=== PATIENT | male | born 1930 | race Caucasian/White ===

== ENCOUNTER 2019-01-08 18:55 | Inpatient (IN) | payer MEDICARE, OTHER ==
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
--- NOTE | 2019-01-08 20:13 | XR ---
EXAMINATION: XR chest 1V portable DATE AND TIME: 01/08/2019 7:47 PM CLINICAL INDICATION: PHH; haylee TECHNIQUE: AP upright portable COMPARISON: None FINDINGS: RPO rotated radiograph. Sternal sutures and mediastinal clips are noted. Moderately enlarged cardiac silhouette. Bilateral pleural effusions, moderate on the right and minimal on the left. There is interstitial and alveolar space process bilaterally, greater on the right. This has the appearance of interstitial an d alveolar phase pulmonary edema, presumably cardiogenic etiology. This diagnosis requires clinical e xclusion of pneumonia. There is no pneumothorax. The right clavicle is partially foreshortened on this RPO view. There appears to be a remodeled remot e mid clavicular fracture. However, clinical exclusion of acute injury is necessary due to the foresh ortening on this RPO image. IMPRESSION: 1. Suspect advanced pulmonary edema. 2. Right mid clavicular findings, likely remote.
[2019-01-08 20:15] LABS: Basophils % (A) 0 %; Eosinophils # (A) 0.2 k/uL (0-0.7); Eosinophils % (A) 1 %; HCT 35.3 % (39.0-53.0); HGB 11.5 gm/dL (13.0-17.5); Lymphocytes # (A) 0.8 k/uL (1.0-4.8); Lymphocytes % (A) 4 %; MCH 33.9 pg (25.0-35.0); MCHC 32.7 g/dL (31.0-37.0); MCV 103.8 fL (80.0-100.0); Macrocytosis Slight; Mean Platelet Volume 8.9; Monocytes # (A) 0.9 k/uL (0-1.0); Monocytes % (A) 5 %; Neutrophils # (A) 15.8 k/uL (1.3-7.7); Neutrophils % (A) 89 %; Platelet Count 255 k/uL (150-450); WBC 17.8 k/uL (3.8-10.6)
[2019-01-08] MEDS ORDERED: FUROSEMIDE 10 MG/ML 4 ML VIAL IV STA (20:17)
[2019-01-08 20:26] LABS: Partial Thromboplastin Time 22.1 sec (22.0-30.0); Prothrombin Time 10.3 sec (9.0-12.0)
[2019-01-08 20:33] LABS: Albumin 3.6 g/dL (3.5-5.0); Total Bilirubin 0.4 mg/dL (0.2-1.3); Total Protein 6.3 g/dL (6.3-8.2)
[2019-01-08] MEDS ORDERED: cefTRIAXone IN SWFI 1,000 MG/10 ML SYRINGE IVP STA (20:33)
[2019-01-08] MEDS ORDERED: ASPIRIN 325 MG TAB PO STA (21:03)
[2019-01-08] MEDS ORDERED: HEPARIN SODIUM,PORCINE 5,000 UNIT/ML 1 ML VIAL IV ONE (21:25)
[2019-01-08] MEDS ORDERED: HEPARIN SODIUM,PORCINE 5,000 UNIT/ML 1 ML VIAL IV PRN (21:25)
[2019-01-08] MEDS ORDERED: ACETAMINOPHEN TAB 325 MG TAB PO PRN (21:25)
[2019-01-08] MEDS ORDERED: NALOXONE 0.4 MG/ML 1 ML VIAL IV PRN (21:25)
[2019-01-08] MEDS: HEPARIN SOD,PORK IN 0.45% NACL 25,000 UNIT in 0.45% NACL 1 250ML.BAG IV SCH (21:49)
[2019-01-08] MEDS: hydrALAZINE HCL 25 MG TAB PO SCH (21:54)
[2019-01-09] MEDS: FUROSEMIDE 10 MG/ML 4 ML VIAL IV SCH ×3 (00:14→17:17)
[2019-01-09 04:25] LABS: Basophils % (A) 0 %; Eosinophils # (A) 0.1 k/uL (0-0.7); Eosinophils % (A) 1 %; HCT 35.3 % (39.0-53.0); HGB 11.6 gm/dL (13.0-17.5); Lymphocytes % (A) 7 %; MCH 33.7 pg (25.0-35.0); MCHC 32.9 g/dL (31.0-37.0); MCV 102.3 fL (80.0-100.0); Macrocytosis Slight; Mean Platelet Volume 9.1; Monocytes % (A) 7 %; Neutrophils # (A) 11.5 k/uL (1.3-7.7); Neutrophils % (A) 84 %; Platelet Count 238 k/uL (150-450); RBC 3.44 m/uL (4.30-5.90); RDW 13.6 % (11.5-15.5); WBC 13.7 k/uL (3.8-10.6)
[2019-01-09] MEDS: hydrALAZINE HCL 25 MG TAB PO SCH ×2 (05:20→13:10)
[2019-01-09] MEDS: CARVEDILOL 6.25 MG TAB PO SCH ×2 (06:54→17:17)
[2019-01-09 07:00] LABS: Glucose,Whole Blood 131 mg/dL (75-99)
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
[2019-01-09] MEDS: ATORVASTATIN 40 MG TAB PO SCH ×2 (09:47→14:55)
[2019-01-09] MEDS: amLODIPine 10 MG TAB PO SCH (09:47)
[2019-01-09] MEDS: ISOSORBIDE MONONITRATE ER 30 MG TAB.ER.24H PO SCH (09:47)
[2019-01-09] MEDS ORDERED: ERGOCALCIFEROL 50,000 UNIT CAP PO SCH (10:15)
[2019-01-09 11:35] LABS: Glucose,Whole Blood 127 mg/dL (75-99)
[2019-01-09] MEDS: LISINOPRIL 20 MG TAB PO SCH (12:19)
[2019-01-09] MEDS: LACTOBACILLUS ACIDOPH & BULGAR 1 EACH PACKET PO SCH (12:20)
[2019-01-09] MEDS: CLOPIDOGREL 75 MG TAB PO SCH (12:20)
[2019-01-09] MEDS: VENLAFAXINE HCL ER 150 MG CAP PO SCH (12:20)
[2019-01-09] MEDS: HYOSCYAMINE SULFATE 0.375 MG TAB.ER.12H PO SCH (12:20)
--- NOTE | 2019-01-09 12:35 | ECHOF ---
Referral Reason:haylee MEASUREMENTS -------- HEIGHT: 177.8 cm WEIGHT: 91.2 kg BP: 151/87 RVIDd: 3.9 cm (< 3.3) IVSd: 1.4 cm (0.6 - 1.1) LVIDd: 4.8 cm (3.9 - 5.3) LVPWd: 1.9 cm (0.6 - 1.1) IVSs: 2.0 cm LVIDs: 3.5 cm LVPWs: 1.9 cm LAESV Index (A-L): 45.08 ml/m Ao Diam: 4.1 cm (2.0 - 3.7) AV Cusp: 1.2 cm (1.5 - 2.6) LA Diam: 5.6 cm (2.7 - 3.8) MV EXCURSION: 20.043 mm (> 18.000) MV EF SLOPE: 67 mm/s (70 - 150) EPSS: 0.7 cm MV E Carlos: 1.28 m/s MV DecT: 121 ms MV A Carlos: 0.50 m/s MV E/A Ratio: 2.57 AV maxP.38 mmHg AV meanP.86 mmHg RAP: 5.00 mmHg RVSP: 21.01 mmHg FINDINGS -------- Sinus rhythm. This was a technically good study. The left ventricular size is normal. There is moderate concentric left ventricular hypertrophy. O verall left ventricular systolic function is mildly impaired with, an EF between 45 - 50 %. Anterse ptal Hypokinesis The right ventricle is mild to moderately enlarged. The left atrium is markedly dilated. LA is severely dilated >40 ml/m2 The right atrium is normal in size. Interatrial and interventricular septum intact. Peak/mean gradient across the Aortic Valve is 5.38mmHg / 2.86mmHg. Normally functioning bioprosthet ic valve. Severe mitral regurgitation is present. Mild tricuspid regurgitation present. Right ventricular systolic pressure is normal at < 35 mmHg. The pulmonic valve is normal. The aortic root size is normal. Normal inferior vena cava with normal inspiratory collapse consistent with estimated right atrial pre ssure of 5 mmHg. Echo free space represents a pericardial fat pad. CONCLUSIONS -------- 1. Sinus rhythm. 2. This was a technically good study. 3. The left ventricular size is normal. 4. There is moderate concentric left ventricular hypertrophy. 5. Overall left ventricular systolic function is mildly impaired with, an EF between 45 - 50 %. 6. Anterseptal Hypokinesis 7. The right ventricle is mild to moderately enlarged. 8. The left atrium is markedly dilated. 9. LA is severely dilated >40 ml/m2 10. The right atrium is normal in size. 11. Interatrial and interventricular septum intact. 12. Peak/mean gradient across the Aortic Valve is 5.38mmHg / 2.86mmHg. 13. Normally functioning bioprosthetic valve. 14. Severe mitral regurgitation is present. 15. Mild tricuspid regurgitation present. 16. Right ventricular systolic pressure is normal at < 35 mmHg. 17. The pulmonic valve is normal. 18. The aortic root size is normal. 19. Normal inferior vena cava with normal inspiratory collapse consistent with estimated right atrial pressure of 5 mmHg. 20. Echo free space represents a pericardial fat pad. DIRECTOR OF TRAUMA: Catalina Hansen RDCS
[2019-01-09] MEDS: INSULIN ASPART (NovoLOG) 100 UNIT/ML VIAL SQ SCH ×2 (14:46→17:18)
[2019-01-09] MEDS ORDERED: ALPRAZolam 0.5 MG TAB PO PRN (14:48)
[2019-01-09] MEDS ORDERED: ALPRAZolam 0.25 MG TAB PO PRN (14:48)
[2019-01-09] MEDS ORDERED: NITROGLYCERIN SL TABS 0.4 MG TAB SUBLINGUAL PRN (14:48)
[2019-01-09] MEDS: HEPARIN SOD,PORK IN 0.45% NACL 25,000 UNIT in 0.45% NACL 1 250ML.BAG IV SCH (15:41)
[2019-01-09 16:22] LABS: Glucose,Whole Blood 165 mg/dL (75-99)
--- NOTE | 2019-01-09 16:25 | HP ---
HISTORY AND PHYSICAL DATE OF ADMISSION: January 08, 2019 DATE OF SERVICE: January 09, 2019. PRESENTING COMPLAINT: Short of breath. HISTORY OF PRESENTING COMPLAINT: A very pleasant, 88 -year-old patient of Dr. Minda Lujan. Chronic stable medical conditions include diabetes, hypertension, chronic kidney disease. Follows with Dr. Kumar. Aortic valve with a pig valve, and chronic obstructive pulmonary disease. The patient has been chronically short of breath, now recently getting far more short of breath with even minimal activity that came on even yesterday. Slight chest pressure. Slight cough, occasional congestion. No fever. No chills. No edema, decided to present to the ER. The patient ruled in for an acute NV. Cardiology is planning to do a cardiac catheterization. Family is present. REVIEW OF SYSTEMS: CONSTITUTIONAL: Tired. HEENT: Decreased hearing. RESPIRATORY as above. CARDIOVASCULAR as above. GASTROINTESTINAL: None. GENITOURINARY: None. MUSCULOSKELETAL: None. DERMATOLOGIC, HEMATOLOGIC, LYMPHATIC: none. PSYCHIATRY: None. NEUROLOGICAL: None. PAST MEDICAL HISTORY: Diabetes mellitus type 2, hypertension, chronic kidney disease, being followed by Dr. 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 PAST SURGICAL HISTORY: Cardiac valve replacement with pig valve, coronary bypass. PSYCH HISTORY: Anxiety, depression. SOCIAL HISTORY: The patient smoked for about 25 years stopped in 1976. Lives by himself. Used to work in a power plant, bore mill operator for plastic, was exposed to different kinds of dust/smoke. FAMILY HISTORY: Reviewed, not pertinent to presentation. HOME MEDICATIONS: Medrol Dosepak, Zithromax, hydralazine 25 mg q.8h, Klonopin 0.25 mg b.i.d., Norvasc 10 mg p.o. daily Effexor XR 150 mg p.o. daily. Lisinopril 40 mg p.o. daily. Probiotic 1 capsule p.o. daily. Insulin lispro 20 units subcu a.c. supper, 80 units subcu a.c. b.i.d., Lantus 44 units subcu q.h.s., Levbid 0.375 mg p.o. b.i.d., Vitamin D2 47030 units every 14 days. Vitamin B12, 500 mcg p.o. q.h.s., Plavix 75 mg p.o. daily, Coreg 6.25 p.o. b.i.d., calcitriol 0.5 mcg p.o. Monday, Monday and Lipitor 40 mg p.o. daily. Aspirin 81 mg p.o. q.h.s., allopurinol 10 mg q.h.s. ALLERGIES: TO SULFUR AND BACTRIM. PHYSICAL EXAMINATION: VITAL SIGNS: Vital signs on presentation, temperature 98, pulse 95, respirations 26, blood pressure 164/99, pulse ox 93 percent on 2 L. GENERAL APPEARANCE: BMI 29 sitting at the edge of bed, tired-appearing. EYES: Pupils are equal. Conjunctivae normal. HEENT: External appearance of nose and ears normal. Oral cavity normal. Decreased hearing. NECK: JVD unable to assess. Mass not palpable. RESPIRATORY: Effort increased. LUNGS: Diminished breath sounds. Prolonged expiration. CARDIOVASCULAR: 1st and 2nd sounds normal. No edema. ABDOMEN: Soft, nontender. Liver and spleen not palpable. LYMPHATIC: No lymph nodes palpable in the neck and axilla. PSYCHIATRY: Alert and oriented times three. Mood and affect normal. NEUROLOGICAL: Pupils equal. Cranial nerves grossly intact. Power and sensation grossly intact. INVESTIGATIONS: White count 17.5, hemoglobin 11.5, platelets 255. Potassium 5.0, BUN 38, creatinine 2.28. Troponin 3.2, 6.6 and 9.7. ProBNP 17,800. EKG tracing personally reviewed by me shows some ST-segment depression in lateral leads. Chest x-ray film, personally reviewed by me shows cardiomegaly and pulmonary edema. ASSESSMENT: 1. Acute non-ST elevation myocardial infarction. 2. Acute congestive heart failure from underlying coronary artery disease. 3. Diabetes mellitus type 2, chronically on insulin. 4. Essential hypertension. 5. 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 6. Chronic obstructive pulmonary disease in an ex-smoker. 7. Anxiety and depression, not otherwise specified. 8. Essential hypertension. 9. Acute congestive heart failure from underlying coronary artery disease. PLAN: Home medications are resumed. The patient is on IV heparin. Cardiology was consulted. Accu-Cheks will be followed. The patient also on IV Lasix. Copy to Dr. Minda Lujan. MMODL / IJN: [id number] /
--- NOTE | 2019-01-09 19:19 | CONS ---
CONSULTATION REASON FOR CONSULT: Renal failure. HISTORY OF PRESENT ILLNESS: Patient is an 88-year-old male with history of chronic kidney disease and NKF stage III, with baseline creatinine about 1.9 mg/dL. He was admitted to the hospital secondary to shortness of breath. The patient was actually seen at our office yesterday. He appeared to be significantly short of breath and was therefore advised to go to the emergency room. His troponin came back positive at 3.2, and it is up to 9.7 today. Chest x-ray showed evidence of pulmonary vascular congestion, pulmonary edema. The patient is maintained on IV Lasix. He states he is feeling slightly better. Serum creatinine was 2.28 yesterday. We do not have labs today. Blood pressure has been about 150-130 mmHg systolic. The patient has not had any fever. The this morning when patient is seen, he is having an echocardiogram. He denies any chest pain. He states he is feeling slightly better in terms of his shortness of breath. 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 However, patient was noticed to have increase in proteinuria recently as outpatient. This will be further worked up. He does have coronary artery disease, history of TIA and the patient has valvular heart disease status post aortic valve replacement. He also has type 2 diabetes, hypertension, hyperlipidemia. PAST SURGICAL HISTORY: Aortic valve replacement, coronary artery bypass surgery. SOCIAL HISTORY: Negative for smoking. Patient is a former smoker. No history of drug abuse or alcohol abuse. MEDICATIONS: Medications at home included Zyloprim, aspirin, Lipitor, Zithromax, Coreg, calcitriol, Plavix, vitamin D2, insulin, lisinopril, Effexor, Norvasc, Klonopin, hydralazine. ALLERGIES: INCLUDE SULFA, BACTRIM. REVIEW OF SYSTEMS: As per HPI. Other systems negative. PHYSICAL EXAMINATION: Patient is currently comfortable. He is on BiPAP. He is not in any acute distress. Blood pressure was this morning 130/60, heart rate of 68 per minute. He is afebrile. Examination of the heart S1, S2. Examination of lungs bilateral breath sounds are heard. ABDOMEN: Soft. There is a bilateral crackles heard at the bases. Abdomen is soft, obese. Examination of lower extremities shows edema 1+ bilaterally. REHAB PHYSICIAN exam is grossly intact. LABS: Show from yesterday, sodium 139, potassium 5.0, BUN 38, serum creatinine 2.28. Troponin is up to 9.7 today. UA is not available. ASSESSMENT: 1. Chronic kidney disease and NKF stage IIIB to IV, with baseline creatinine about 1.9- 2 mg/dL secondary to diabetic nephropathy and nephrosclerosis. The patient was recently noticed to have an increase in proteinuria. We will repeat his serologies as an outpatient. 2. Acute non ST elevation myocardial infarction, being followed by Cardiology, maintained on IV heparin. 3. Congestive heart failure, maintained on IV Lasix which we will continue, systolic acute on chronic. 4. Cardiomyopathy, ejection fraction of about 45-50 percent. Left atrium is severely dilated. Moderate concentric LVH is noted. 5. Status post bioprosthetic aortic valve replacement. PLAN: Continue with IV Lasix. Repeat labs in a.m. Check urinalysis. Continue with PURA inhibitors and avoid nephrotoxic agents. Avoid hypotension. Thank you for this consultation. We will continue to follow the patient with you during his hospitalization. MMMIGUEL ANGELL / [place]IR[place]IAN: [id number] /
[2019-01-09 21:29] LABS: Glucose,Whole Blood 93 mg/dL (75-99)
[2019-01-10] MEDS: ASPIRIN 81 MG PO SCH ×2 (06:38→21:01)
[2019-01-10] MEDS: CYANOCOBALAMIN 500 MCG TAB PO SCH ×2 (06:38→21:01)
[2019-01-10] MEDS: ALLOPURINOL 300 MG TAB PO SCH ×2 (06:38→21:01)
[2019-01-10] MEDS: HYOSCYAMINE SULFATE 0.375 MG TAB.ER.12H PO SCH ×3 (06:40→21:01)
[2019-01-10] MEDS: hydrALAZINE HCL 25 MG TAB PO SCH ×4 (06:40→21:01)
[2019-01-10] MEDS: INSULIN DETEMIR (LEVEMIR) 100 UNIT/ML SYR SQ SCH ×2 (06:40→21:17)
[2019-01-10] MEDS: FUROSEMIDE 10 MG/ML 4 ML VIAL IV SCH ×4 (06:41→23:17)
[2019-01-10 06:43] LABS: Glucose,Whole Blood 92 mg/dL (75-99)
[2019-01-10] MEDS: CARVEDILOL 6.25 MG TAB PO SCH ×2 (06:46→17:17)
[2019-01-10 07:05] LABS: Basophils % (A) 0 %; Eosinophils # (A) 0.6 k/uL (0-0.7); Eosinophils % (A) 7 %; HCT 32.8 % (39.0-53.0); HGB 10.7 gm/dL (13.0-17.5); Lymphocytes # (A) 1.2 k/uL (1.0-4.8); Lymphocytes % (A) 13 %; MCH 33.8 pg (25.0-35.0); MCHC 32.8 g/dL (31.0-37.0); MCV 102.9 fL (80.0-100.0); Macrocytosis Slight; Mean Platelet Volume 9.1; Monocytes # (A) 0.7 k/uL (0-1.0); Monocytes % (A) 8 %; Neutrophils # (A) 6.3 k/uL (1.3-7.7); Neutrophils % (A) 69 %; Platelet Count 223 k/uL (150-450); RBC 3.18 m/uL (4.30-5.90); RDW 13.2 % (11.5-15.5); WBC 9.1 k/uL (3.8-10.6)
[2019-01-10] MEDS: ATORVASTATIN 40 MG TAB PO SCH (09:02)
[2019-01-10] MEDS: INSULIN ASPART (NovoLOG) 100 UNIT/ML VIAL SQ SCH ×3 (09:02→17:17)
[2019-01-10] MEDS: amLODIPine 10 MG TAB PO SCH (09:02)
[2019-01-10] MEDS: CLOPIDOGREL 75 MG TAB PO SCH (09:02)
[2019-01-10] MEDS: LISINOPRIL 20 MG TAB PO SCH (09:03)
[2019-01-10] MEDS: VENLAFAXINE HCL ER 150 MG CAP PO SCH (09:03)
[2019-01-10] MEDS: ISOSORBIDE MONONITRATE ER 30 MG TAB.ER.24H PO SCH (09:03)
[2019-01-10] MEDS: LACTOBACILLUS ACIDOPH & BULGAR 1 EACH PACKET PO SCH (09:03)
[2019-01-10 09:42] LABS: Calcium 8.2 mg/dL (8.4-10.2); Potassium 4.1 mmol/L (3.5-5.1)
[2019-01-10 12:16] LABS: Glucose,Whole Blood 73 mg/dL (75-99)
--- NOTE | 2019-01-10 13:39 | P.PN ---
Subjective Progress Note Date: 01/10/19 This is a pleasant 88-year-old gentleman with history of diabetes, hypertension, hyperlipidemia, renal disease, prior TIA, history of aortic valve replacement, who follows with Dr. García in the office. Of recent, the patient has been experiencing symptoms of progressively worsening shortness of breath with exertion. He presented to the hospital on this occasion with symptoms of difficulty in breathing. According to the patient he could not catch his breath at all. He denies any chest pressure or palpitations. Chest x-ray shows advanced pulmonary edema. His EKG on arrival here showed a normal sinus rhythm with nonspecific ST-T wave changes. Blood pressure on arrival here 164/99, h eart rate in the 90s, 93% on 2 L of oxygen. Blood pressure this morning 150/80 with a heart rate in the 70s, 96% on 40% BiPAP. White blood cell count on admission 17.8, 13.7 this morning, hemoglobin 11.5 on admission, 11.6 this morning, platelet count 238. Sodium 139, potassium 5.0, BUN 38 and creatinine 2.2. BNP level 17,800. Troponin 3.2 and 6.6.At the time of my examination this morning, patient is lying somewhat reclined in bed, does state that his breathing is significantly improved although not back to his normal. He states that just prior to admission here, he was having something to drink, and he inhaled feeling like it went into his lungs, he had a severe coughing spell which seemed to make his shortness of breath significantly worse. The patient had been seen recently by Dr. García in the office and was advised as an outpatient to undergo cardiac catheterization on this coming Monday. 01/10/2019 Patient seen and examined this morning, sitting up in the chair bedside. He diuresed well yesterday and through the night and feels considerably better today. Patient diuresed approximately 3200 mL of urine through the night, although his weight isn't reflective of good diuresis. His white blood cell count is normal, hemoglobin 10.7, platelet count 223. Sodium 140, potassium 4.1, BUN 48 and creatinine 2.21. I appreciate nephrology's consultation, it appears that patient's creatinine does sit around 1.9. Objective - Vital Signs Vital signs: Vital Signs Temp 98.0 F 01/10/19 07:41 Pulse 73 05/09/19 12:00 Resp 18 01/10/19 12:00 BP 144/67 01/10/19 11:32 Pulse Ox 96 01/10/19 11:32 Intake & Output 01/09/19 01/10/19 01/10/19 18:59 06:59 18:59 Intake Total 1102.769 180 Output Total 1200 1974 Balance -97.231 -1974 180 Weight 91.6 kg 94 kg Intake: Intake, IV Titration 142.769 Amount Heparin Sod,Pork in 0.45% 142.769 NaCl 25,000 unit In 0.45 % NaCl 1 250ml.bag @ 10 UNITS/KG/HR 9.979 mls/hr IV .Q24H COUNT INCLUDES THE [facility] Rx#: [id number] Oral 960 180 Output: Urine 1199 1974 Other: Voiding Method Urinal Urinal Urinal Diaper Diaper Diaper Incontinent Incontinent Incontinent # Voids 2 2 0 # Bowel Movements 1 1 0 - Exam PHYSICAL EXAMINATION: GENERAL: 88-year-old gentleman in no acute distress at the time of my examination HEENT: Head is atraumatic, normocephalic. Pupils equal, round. Sclera anicteric. Conjunctiva are clear. Mucous membranes of the mouth are moist. Neck is supple. There is elevated jugular venous pressure. No carotid bruit is heard. HEART EXAMINATION: S1 and S2 1 systolic murmur is heard CHEST EXAMINATION: Lungs are clear with mild diminished air entry to the bases. ABDOMEN: Soft, nontender. Bowel sounds are heard. No organomegaly noted. EXTREMITIES: 2+ peripheral pulses with no evidence of peripheral edema and no calf tenderness noted. NEUROLOGIC patient is awake, alert and oriented 3. - Labs CBC & Chem 7: 01/10/19 06:31 01/10/19 06:31 Labs: Abnormal Lab Results - Last 24 Hours (Table) 01/09/19 01/10/19 01/10/19 Range/Units 16:21 06:31 06:31 RBC 3.18 L (4.30-5.90) m/uL Hgb 10.7 L (13.0-17.5) gm/dL Hct 32.8 L (39.0-53.0) % MCV 102.9 H (80.0-100.0) fL BUN 48 H (9-20) mg/dL Creatinine 2.21 H (0.66-1.25) mg/dL POC Glucose (mg/dL) 165 H (75-99) mg/dL Calcium 8.2 L (8.4-10.2) mg/dL 01/10/19 Range/Units 12:01 RBC (4.30-5.90) m/uL Hgb (13.0-17.5) gm/dL Hct (39.0-53.0) % MCV (80.0-100.0) fL BUN (9-20) mg/dL Creatinine (0.66-1.25) mg/dL POC Glucose (mg/dL) 73 L (75-99) mg/dL Calcium (8.4-10.2) mg/dL Assessment and Plan Plan: Assessment and plan #1 congestive heart failure, LV function unknown #2 non-ST elevation OR #3 history of aortic valve replacement #4 hypertension #5 diabetes #6 hyperlipidemia #7 acute on chronic renal disease Plan Patient had an echocardiogram with Doppler study performed which revealed an ejection fraction of 45-50%. Anterior septal hypokinesia. Normally functioning bioprosthetic aortic valve. Severe mitral regurgitation. We will recommend to continue the patient on current dose of IV Lasix. Continue to monitor intake and output along with daily weights and daily lytes BUN and creatinine. Patient is scheduled morning undergo cardiac catheterization by Dr. Capps. Risks and benefits were explained to the patient in detail and he is willing to proceed. DNP note has been reviewed, I agree with a documented findings and plan of care. Patient was seen and examined.
[2019-01-10] MEDS: HEPARIN SOD,PORK IN 0.45% NACL 25,000 UNIT in 0.45% NACL 1 250ML.BAG IV SCH (15:43)
[2019-01-10 16:56] LABS: Glucose,Whole Blood 179 mg/dL (75-99)
--- NOTE | 2019-01-10 17:00 | PN ---
PROGRESS NOTE Patient is seen for followup for chronic kidney disease. He was admitted to the hospital with CHF exacerbation and acute myocardial infarction. Currently patient is maintained on IV heparin. He is feeling better. Volume status has improved. He is maintained on IV push Lasix. Currently he has no further chest pains. Patient is possibly going for cardiac catheterization. His renal function is at baseline. On examination this morning, blood pressure is 153/67, heart rate of 73 per minute. He is afebrile. EXAMINATION OF THE HEART: S1 and S2. EXAMINATION OF LUNGS: Bilateral breath sounds are heard. ABDOMEN: Soft, non-tender. Examination of lower extremities shows edema 1+ bilaterally. AFFILIATE MARKETING COORDINATOR exam is grossly intact. Labs show hemoglobin 10.7, sodium 140, potassium 4.1, BUN 48, serum creatinine 2.21. ASSESSMENT: 1. Chronic kidney disease, NKF stage IV. Renal function at baseline. Etiology is nephrosclerosis. 2. Acute nyt-RW-msmluwnas myocardial infarction, maintained on heparin. Planning cardiac cath. 3. Congestive heart failure, acute on top of chronic, systolic. 4. Cardiomyopathy, ejection fraction 45% to 50%, with severely dilated left atrium and moderate concentric left ventricular hypertrophy. 5. Status post bioprosthetic aortic valve replacement. PLAN: Continue IV Lasix. We can proceed with cardiac cath as planned. However, I would like to hold the Zestril for a day or on the day of procedure, and we can resume over the next couple of days. We also need to avoid hypotension. Currently patient is on 40 mg of lisinopril. I will decrease it to 10 mg per day. MMODL / IJN: [id number] /
[2019-01-10 20:20] LABS: Glucose,Whole Blood 71 mg/dL (75-99)
[2019-01-11] MEDS: INSULIN ASPART (NovoLOG) 100 UNIT/ML VIAL SQ SCH ×3 (05:00→18:08)
[2019-01-11] MEDS: LACTOBACILLUS ACIDOPH & BULGAR 1 EACH PACKET PO SCH (05:00)
[2019-01-11 05:35] LABS: Basophils % (A) 0 %; Eosinophils # (A) 0.7 k/uL (0-0.7); Eosinophils % (A) 8 %; HCT 35.4 % (39.0-53.0); HGB 11.2 gm/dL (13.0-17.5); Lymphocytes # (A) 1.1 k/uL (1.0-4.8); Lymphocytes % (A) 12 %; MCH 32.6 pg (25.0-35.0); MCHC 31.6 g/dL (31.0-37.0); MCV 103.2 fL (80.0-100.0); Macrocytosis Slight; Monocytes # (A) 0.7 k/uL (0-1.0); Monocytes % (A) 8 %; Neutrophils # (A) 6.7 k/uL (1.3-7.7); Neutrophils % (A) 70 %; Platelet Count 249 k/uL (150-450); RBC 3.43 m/uL (4.30-5.90); RDW 13.6 % (11.5-15.5); WBC 9.5 k/uL (3.8-10.6)
[2019-01-11 05:47] LABS: Potassium 4.2 mmol/L (3.5-5.1)
[2019-01-11] MEDS ORDERED: ASPIRIN 325 MG TAB PO ONE (06:00)
[2019-01-11] MEDS ORDERED: ATORVASTATIN 80 MG TAB PO ONE (06:00)
[2019-01-11 06:17] LABS: Glucose,Whole Blood 148 mg/dL (75-99)
--- NOTE | 2019-01-11 06:49 | PN ---
PROGRESS NOTE DATE OF SERVICE: 01/10/2019 PRESENTING COMPLAINT: Short of breath. INTERVAL HISTORY: Patient with chronic kidney disease, presented with acute non ST elevation myocardial infarction and acute CHF exacerbation. Breathing has been stable. Patient for cardiac catheterization. Tolerating a diet. No chest pain. Family at the bedside. REVIEW OF SYSTEMS: Done for constitutional, cardiovascular, GI, pulmonary; relevant findings as above. CURRENT MEDICATIONS: Current medications are reviewed that include IV heparin. PHYSICAL EXAMINATION: On examination, temperature 98.1, pulse 77, respiration 20, blood pressure 133/63, pulse ox 98% . GENERAL APPEARANCE: Sitting up, awake. EYES: Pupils equal. Conjunctivae normal. NECK: JVD not raised. Mass not palpable. RESPIRATORY: Effort increased. LUNGS: Decreased breath sounds, prolonged expiration. CARDIOVASCULAR: First and second sounds normal. No edema. ABDOMEN: Soft, nontender. Liver and spleen not palpable. PSYCHIATRY: Alert and oriented x3. Mood and affect normal. INVESTIGATIONS: White count 9.1, hemoglobin 10.7. Potassium 4.1. BUN 48, creatinine 2.21. ASSESSMENT: 1. Acute umy-EP-gkhszctdn myocardial infarction. 2. Acute congestive heart failure from both systolic and diastolic dysfunction, ejection fraction 45% to 50%. 3. Severe mitral regurgitation, nonrheumatic. 4. Diabetes mellitus type 2, chronically on insulin. 5. Essential hypertension. 6. 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 7. Chronic obstructive pulmonary disease in an ex-smoker. 8. Anxiety and depression, not otherwise specified. 9. Essential hypertension. 10.IV heparin monitoring. PLAN: Continue current medication and treatment plan. Patient will be going in for a cardiac cath as planned. Patient also remains on IV Lasix earlier. Follow electrolytes closely. MMODL / IJN: [id number] /
[2019-01-11] MEDS: hydrALAZINE HCL 25 MG TAB PO SCH ×3 (07:02→20:53)
[2019-01-11] MEDS ORDERED: HEPARIN SODIUM,PORCINE 5,000 UNIT/ML 1 ML VIAL IV PRN (07:35)
[2019-01-11] MEDS: CLOPIDOGREL 75 MG TAB PO SCH (08:16)
[2019-01-11] MEDS: CARVEDILOL 6.25 MG TAB PO SCH ×2 (08:16→18:06)
[2019-01-11] MEDS: HYOSCYAMINE SULFATE 0.375 MG TAB.ER.12H PO SCH ×2 (08:16→20:53)
[2019-01-11] MEDS: ISOSORBIDE MONONITRATE ER 30 MG TAB.ER.24H PO SCH (08:16)
[2019-01-11] MEDS: VENLAFAXINE HCL ER 150 MG CAP PO SCH (08:16)
[2019-01-11] MEDS: amLODIPine 10 MG TAB PO SCH (08:17)
[2019-01-11] MEDS: HEPARIN SOD,PORK IN 0.45% NACL 25,000 UNIT in 0.45% NACL 1 250ML.BAG IV SCH (08:17)
[2019-01-11] MEDS ORDERED: LISINOPRIL 10 MG TAB PO SCH (09:00)
[2019-01-11] MEDS ORDERED: SODIUM CHLORIDE 0.9% 1,000 ML in EMPTY BAG 1 BAG IV ONE (09:00)
[2019-01-11 11:40] LABS: Glucose,Whole Blood 172 mg/dL (75-99)
[2019-01-11] MEDS: clonazePAM 0.5 MG TAB PO PRN (12:34)
[2019-01-11] MEDS: FUROSEMIDE 10 MG/ML 4 ML VIAL IV SCH ×2 (13:34→20:54)
--- NOTE | 2019-01-11 14:08 | XR ---
EXAMINATION TYPE: XR chest 1V DATE OF EXAM: 01/11/2019 HISTORY: Shortness of breath. COMPARISON: 01/08/2019 TECHNIQUE: Single view of the chest is submitted. FINDINGS: Demonstrated are scattered senescent parenchymal change. Persistent but improving patchy basilar infiltrates. Continued follow-up advised. The heart is stable. Hilar and mediastinal structures are within normal limits. Degenerative changes are seen of the dorsal spine. IMPRESSION: 1. Overall improvement in the appearance of the chest.
--- NOTE | 2019-01-11 14:08 | PN ---
PROGRESS NOTE Patient is seen for followup for chronic kidney disease and acute kidney injury. The cardiac cath was canceled this morning as serum creatinine was further elevated. Currently, patient is lying in bed. He is comfortable. He is not in any acute distress. Overall, he states he is feeling better. The patient was started on IV fluids overnight as there were initial plans for cardiac catheterization. PHYSICAL EXAMINATION: On examination today, blood pressure was 160/90, heart rate 68 per minute. He is afebrile. EXAMINATION OF THE HEART: S1, S2. EXAMINATION OF THE LUNGS: Bilateral breath sounds are heard. Decreased breath sounds at the bases. Abdomen is soft, nontender, obese. Examination of the lower extremities shows no evidence of edema. SKID WORKER exam is grossly intact. Patient is moving all 4 extremities. LABS: Labs show sodium 137, potassium 4.2, BUN 51, serum creatinine 2.57, hemoglobin 11.2 g/dL. ASSESSMENT: 1. Acute kidney injury, mostly cardiorenal. Currently, serum creatinine is slightly higher than baseline. Cardiac cath is on hold. I will hold off on the PURA inhibitors and will repeat a chest x-ray this morning and decide on the dose of the diuretics. The patient did not get his morning dose of IV Lasix. IV fluids will be discontinued as the patient is not having the cardiac catheterization today. 2. Congestive heart failure, acute on top of chronic, systolic. 3. Cardiomyopathy, ejection fraction 45% to 50% with severely dilated left atrium. 4. Status post acute myocardial infarction, maintained on IV heparin. PLAN: Repeat chest x-ray today. Discontinue IV fluids. I will decide on the dose of the diuretics based on his x-ray findings. Volume status has improved since admission. Hold off on the PURA inhibitors for now. MMODL / IJN: [id number] /
--- NOTE | 2019-01-11 14:11 | P.PN ---
Subjective Progress Note Date: 01/11/19 Principal diagnosis: Acute non-ST elevation [place] This is a pleasant 88-year-old gentleman with a past medical history significant for aortic valve replacement, diabetes, hypertension, dyslipidemia, was admitted to the hospital with a worsening dyspnea and he was diagnosed with acute non-ST patient myocardial infarction as well as congestive heart failure secondary to systolic dysfunction. The echocardiogram revealed an ejection fraction between 45-50% with evidence of severe mitral regurgitation. On follow-up with the patient today, January [id number], he is feeling better in terms of shortness of breath. The plan was to proceed with heart catheterization earlier today but because his creatinine is worse with decided to hold on the cath at this point. He was seen by hand shaker who stopped the lisinopril. We'll continue monitor the kidney function and electrolytes and proceed with heart catheterization in the next 24-48 hours. Objective - Vital Signs Vital signs: Vital Signs Temp 99.2 F 01/11/19 08:00 Pulse 75 01/11/19 08:00 Resp 18 01/11/19 08:00 BP 160/90 01/11/19 08:00 Pulse Ox 97 01/11/19 08:00 Intake & Output 01/10/19 01/11/19 01/11/19 18:59 06:59 18:59 Intake Total 610 222 Output Total 300 1400 400 Balance 310 -1400 -178 Weight 93.8 kg Intake: Intake, IV Titration 250 Amount Heparin Sod,Pork in 0.45% 250 NaCl 25,000 unit In 0.45 % NaCl 1 250ml.bag @ 10 UNITS/KG/HR 9.979 mls/hr IV .Q24H [facility] Rx#: [id number] Oral 360 222 Output: Urine 300 1400 400 Other: Voiding Method Urinal Urinal Urinal Diaper Diaper Diaper Incontinent Incontinent Incontinent # Voids 1 1 # Bowel Movements 0 0 - Constitutional General appearance: Present: no acute distress - Respiratory Respiratory: bilateral: diminished - Cardiovascular Rhythm: regular Heart sounds: normal: S1, S2 Abnormal Heart Sounds: Present: systolic murmur - Labs CBC & Chem 7: 01/11/19 05:20 01/11/19 05:20 Labs: Abnormal Lab Results - Last 24 Hours (Table) 01/10/19 01/10/19 01/11/19 Range/Units 16:46 20:18 05:20 RBC 3.43 L (4.30-5.90) m/uL Hgb 11.2 L (13.0-17.5) gm/dL Hct 35.4 L (39.0-53.0) % MCV 103.2 H (80.0-100.0) fL APTT (22.0-30.0) sec BUN (9-20) mg/dL Creatinine (0.66-1.25) mg/dL Glucose (74-99) mg/dL POC Glucose (mg/dL) 179 H 71 L (75-99) mg/dL Calcium (8.4-10.2) mg/dL 01/11/19 01/11/19 01/11/19 Range/Units 05:20 06:16 11:31 RBC (4.30-5.90) m/uL Hgb (13.0-17.5) gm/dL Hct (39.0-53.0) % MCV (80.0-100.0) fL APTT (22.0-30.0) sec BUN 51 H (9-20) mg/dL Creatinine 2.57 H (0.66-1.25) mg/dL Glucose 135 H (74-99) mg/dL POC Glucose (mg/dL) 148 H 172 H (75-99) mg/dL Calcium 8.0 L (8.4-10.2) mg/dL 01/11/19 Range/Units 13:30 RBC (4.30-5.90) m/uL Hgb (13.0-17.5) gm/dL Hct (39.0-53.0) % MCV (80.0-100.0) fL APTT 32.3 H (22.0-30.0) sec BUN (9-20) mg/dL Creatinine (0.66-1.25) mg/dL Glucose (74-99) mg/dL POC Glucose (mg/dL) (75-99) mg/dL Calcium (8.4-10.2) mg/dL Assessment and Plan Assessment: Assessment #1 acute non-ST patient myocardial infarction #2 congestive heart failure exacerbation secondary to systolic dysfunction #3 ischemic cardiomyopathy with EF around 45% #4 status post aVR #5 multiple comorbid conditions including diabetes, hypertension, dyslipidemia Plan #1 continue monitor the kidney function and electrolytes #2 continue the Lasix IV #3 the lisinopril was stopped #4 follow-up with the patient
[2019-01-11 16:41] LABS: Glucose,Whole Blood 92 mg/dL (75-99)
[2019-01-11] MEDS: ASPIRIN 81 MG PO SCH (20:53)
[2019-01-11] MEDS: CYANOCOBALAMIN 500 MCG TAB PO SCH (20:53)
[2019-01-11] MEDS: ALLOPURINOL 300 MG TAB PO SCH (20:53)
[2019-01-11] MEDS: INSULIN DETEMIR (LEVEMIR) 100 UNIT/ML SYR SQ SCH (20:54)
[2019-01-11 21:04] LABS: Glucose,Whole Blood 164 mg/dL (75-99)
--- NOTE | 2019-01-11 22:29 | PN ---
PROGRESS NOTE DATE OF SERVICE: 01/11/2019 PRESENTING COMPLAINT: Short of breath. INTERVAL HISTORY: Patient with chronic kidney disease presented with acute ppl-[id number] myocardial infarction and acute CHF exacerbation. Patient was due to go for cardiac catheterization, but because of renal function this was deferred. Breathing is stable. No chest pain. Multiple family members at the bedside. Otherwise, patient is tolerating his diet well. REVIEW OF SYSTEMS: Done for constitutional, cardiovascular, GI, pulmonary; relevant findings as above. CURRENT MEDICATIONS: Reviewed. They include IV heparin. PHYSICAL EXAMINATION: Temperature 98.1, pulse 70, respiration 18, blood pressure 112/59, pulse ox 98% on room air. GENERAL APPEARANCE: Lying in bed. Comfortable. EYES: Pupils equal. Conjunctivae normal. NECK: JVD not raised. Mass not palpable. RESPIRATORY: Effort increased. LUNGS: Decreased breath sounds. CARDIOVASCULAR: First and second sounds normal. No edema. ABDOMEN: Soft, non-tender. Liver and spleen not palpable. PSYCHIATRY: Alert and oriented x3. Mood and affect normal. INVESTIGATIONS: White count 9.5, hemoglobin 11.2, potassium 4.2, BUN 51, creatinine 2.57. ASSESSMENT: 1. Acute jrg-PH-[id number] myocardial infarction, present on admission. 2. Acute congestive heart failure exacerbation from both systolic and diastolic dysfunction, ejection fraction 45% to 50%, now clinically improved. 3. Severe mitral regurgitation, non-rheumatic. 4. 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 5. Essential hypertension. 6. 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 7. Chronic obstructive pulmonary disease in an ex-smoker. 8. Anxiety, depression not otherwise specified. 9. Essential hypertension. 10.IV heparin monitoring. PLAN: Continue current medication and treatment plan. Did talk to the family in case a decision is made not for a cardiac catheterization. The outcomes between cardiac cath and medical management beyond 48 hours of acute VT are somewhat similar. Of course, this will be further determined by the home and school visitor. Will also keep a close eye on patient's renal function, which has slightly gotten worse since getting the IV Lasix. MMODL / IJN: [id number] /
[2019-01-12] MEDS: HEPARIN SOD,PORK IN 0.45% NACL 25,000 UNIT in 0.45% NACL 1 250ML.BAG IV SCH
[2019-01-12] MEDS: CARVEDILOL 6.25 MG TAB PO SCH ×2 (06:03→17:42)
[2019-01-12] MEDS: hydrALAZINE HCL 25 MG TAB PO SCH ×3 (06:03→20:36)
[2019-01-12 06:17] LABS: Glucose,Whole Blood 71 mg/dL (75-99)
[2019-01-12 06:49] LABS: Basophils % (A) 0 %; Eosinophils # (A) 0.7 k/uL (0-0.7); Eosinophils % (A) 8 %; HCT 33.6 % (39.0-53.0); HGB 10.6 gm/dL (13.0-17.5); Lymphocytes # (A) 0.9 k/uL (1.0-4.8); Lymphocytes % (A) 10 %; MCH 32.7 pg (25.0-35.0); MCHC 31.6 g/dL (31.0-37.0); MCV 103.4 fL (80.0-100.0); Macrocytosis Slight; Mean Platelet Volume 9.1; Monocytes # (A) 0.6 k/uL (0-1.0); Monocytes % (A) 7 %; Neutrophils # (A) 6.4 k/uL (1.3-7.7); Neutrophils % (A) 73 %; Platelet Count 229 k/uL (150-450); RBC 3.25 m/uL (4.30-5.90); RDW 13.6 % (11.5-15.5); WBC 8.9 k/uL (3.8-10.6)
[2019-01-12 07:13] LABS: Prothrombin Time 10.9 sec (9.0-12.0)
[2019-01-12 07:26] LABS: Partial Thromboplastin Time 114.1 sec (22.0-30.0)
[2019-01-12 09:20] LABS: Albumin 3.2 g/dL (3.5-5.0); Calcium 8.2 mg/dL (8.4-10.2); Magnesium 2.2 mg/dL (1.6-2.3); Potassium 4.2 mmol/L (3.5-5.1); Total Bilirubin 0.4 mg/dL (0.2-1.3); Total Protein 5.8 g/dL (6.3-8.2)
[2019-01-12] MEDS: amLODIPine 10 MG TAB PO SCH (09:50)
[2019-01-12] MEDS: clonazePAM 0.5 MG TAB PO PRN ×2 (09:50→20:37)
[2019-01-12] MEDS: LACTOBACILLUS ACIDOPH & BULGAR 1 EACH PACKET PO SCH (09:50)
[2019-01-12] MEDS: ATORVASTATIN 40 MG TAB PO SCH (09:50)
[2019-01-12] MEDS: HYOSCYAMINE SULFATE 0.375 MG TAB.ER.12H PO SCH ×2 (09:50→20:37)
[2019-01-12] MEDS: CLOPIDOGREL 75 MG TAB PO SCH (09:50)
[2019-01-12] MEDS: ISOSORBIDE MONONITRATE ER 30 MG TAB.ER.24H PO SCH (09:50)
[2019-01-12] MEDS: VENLAFAXINE HCL ER 150 MG CAP PO SCH (09:51)
[2019-01-12 10:39] LABS: Calcium 8.4 mg/dL (8.4-10.2); Potassium 4.4 mmol/L (3.5-5.1)
[2019-01-12 11:18] LABS: Glucose,Whole Blood 148 mg/dL (75-99)
[2019-01-12] MEDS: CALCITRIOL 0.25 MCG CAP PO SCH (12:12)
[2019-01-12] MEDS: FUROSEMIDE 10 MG/ML 4 ML VIAL IV SCH ×2 (12:12→20:36)
[2019-01-12] MEDS: INSULIN ASPART (NovoLOG) 100 UNIT/ML VIAL SQ SCH ×3 (12:12→17:42)
--- NOTE | 2019-01-12 12:48 | P.PN ---
Subjective Progress Note Date: 01/12/19 This is a pleasant 88-year-old gentleman with history of diabetes, hypertension, hyperlipidemia, renal disease, prior TIA, history of aortic valve replacement, who follows with Dr. García in the office. Of recent, the patient has been experiencing symptoms of progressively worsening shortness of breath with exertion. He presented to the hospital on this occasion with symptoms of difficulty in breathing. According to the patient he could not catch his breath at all. He denies any chest pressure or palpitations. Chest x-ray shows advanced pulmonary edema. His EKG on arrival here showed a normal sinus rhythm with nonspecific ST-T wave changes. Blood pressure on arrival here 164/99, h eart rate in the 90s, 93% on 2 L of oxygen. Blood pressure this morning 150/80 with a heart rate in the 70s, 96% on 40% BiPAP. White blood cell count on admission 17.8, 13.7 this morning, hemoglobin 11.5 on admission, 11.6 this morning, platelet count 238. Sodium 139, potassium 5.0, BUN 38 and creatinine 2.2. BNP level 17,800. Troponin 3.2 and 6.6.At the time of my examination this morning, patient is lying somewhat reclined in bed, does state that his breathing is significantly improved although not back to his normal. He states that just prior to admission here, he was having something to drink, and he inhaled feeling like it went into his lungs, he had a severe coughing spell which seemed to make his shortness of breath significantly worse. The patient had been seen recently by Dr. García in the office and was advised as an outpatient to undergo cardiac catheterization on this coming Monday. 01/10/2019 Patient seen and examined this morning, sitting up in the chair bedside. He diuresed well yesterday and through the night and feels considerably better today. Patient diuresed approximately 3200 mL of urine through the night, although his weight isn't reflective of good diuresis. His white blood cell count is normal, hemoglobin 10.7, platelet count 223. Sodium 140, potassium 4.1, BUN 48 and creatinine 2.21. I appreciate nephrology's consultation, it appears that patient's creatinine does sit around 1.9. 01/12/2009 A shunt was seen and examined this morning, he feels well, breathing is stable, denies any chest discomfort. His creatinine today is 2.7, for this reason a cardiac catheterization will again be deferred for another 24-48 hours. At pressure 134/90 with a heart rate in the 70s, 93% on 6 L of oxygen. Repeat chest x-ray performed yesterday showed overall improvement in the appearance of the chest. The patient does continue to be on IV Lasix, we will leave the determination of diuretic dosing up to nephrology as well as IV fluids. Objective - Vital Signs Vital signs: Vital Signs Temp 97.7 F 01/12/19 12:00 Pulse 88 01/12/19 12:00 Resp 18 01/12/19 12:00 BP 134/92 01/12/19 12:00 Pulse Ox 93 L 01/12/19 12:00 Intake & Output 01/11/19 01/12/19 01/12/19 18:59 06:59 18:59 Intake Total 582.113 91.176 Output Total 400 800 Balance 182.113 -708.824 Weight 94 kg Intake: Intake, IV Titration 120.113 91.176 Amount Heparin Sod,Pork in 0.45% 120.113 91.176 NaCl 25,000 unit In 0.45 % NaCl 1 250ml.bag @ 10. 67 UNITS/KG/HR 10.008 mls /hr IV .Q24H [facility] Rx#: [id number] Oral 462 Output: Urine 400 800 Other: Voiding Method Urinal Urinal Urinal Diaper Diaper Diaper Incontinent Incontinent Incontinent - Exam PHYSICAL EXAMINATION: GENERAL: 88-year-old gentleman in no acute distress at the time of my examination HEENT: Head is atraumatic, normocephalic. Pupils equal, round. Sclera anicteric. Conjunctiva are clear. Mucous membranes of the mouth are moist. Neck is supple. There is elevated jugular venous pressure. No carotid bruit is heard. HEART EXAMINATION: S1 and S2 1 systolic murmur is heard CHEST EXAMINATION: Lungs are clear with mild diminished air entry to the bases. ABDOMEN: Soft, nontender. Bowel sounds are heard. No organomegaly noted. EXTREMITIES: 2+ peripheral pulses with no evidence of peripheral edema and no calf tenderness noted. NEUROLOGIC patient is awake, alert and oriented 3. - Labs CBC & Chem 7: 01/12/19 06:28 01/12/19 10:02 Labs: Abnormal Lab Results - Last 24 Hours (Table) 01/11/19 01/11/19 01/11/19 Range/Units 13:30 20:52 23:09 RBC (4.30-5.90) m/uL Hgb (13.0-17.5) gm/dL Hct (39.0-53.0) % MCV (80.0-100.0) fL Lymphocytes # (1.0-4.8) k/uL APTT 32.3 H 46.7 H (22.0-30.0) sec BUN (9-20) mg/dL Creatinine (0.66-1.25) mg/dL Glucose (74-99) mg/dL POC Glucose (mg/dL) 164 H (75-99) mg/dL Calcium (8.4-10.2) mg/dL Total Protein (6.3-8.2) g/dL Albumin (3.5-5.0) g/dL 01/12/19 01/12/19 01/12/19 Range/Units 06:16 06:28 06:28 RBC 3.25 L (4.30-5.90) m/uL Hgb 10.6 L (13.0-17.5) gm/dL Hct 33.6 L (39.0-53.0) % MCV 103.4 H (80.0-100.0) fL Lymphocytes # 0.9 L (1.0-4.8) k/uL APTT 114.1 H* (22.0-30.0) sec BUN (9-20) mg/dL Creatinine (0.66-1.25) mg/dL Glucose (74-99) mg/dL POC Glucose (mg/dL) 71 L (75-99) mg/dL Calcium (8.4-10.2) mg/dL Total Protein (6.3-8.2) g/dL Albumin (3.5-5.0) g/dL 01/12/19 01/12/19 01/12/19 Range/Units 06:28 10:02 11:17 RBC (4.30-5.90) m/uL Hgb (13.0-17.5) gm/dL Hct (39.0-53.0) % MCV (80.0-100.0) fL Lymphocytes # (1.0-4.8) k/uL APTT (22.0-30.0) sec BUN 57 H 57 H (9-20) mg/dL Creatinine 2.78 H 2.68 H (0.66-1.25) mg/dL Glucose 61 L (74-99) mg/dL POC Glucose (mg/dL) 148 H (75-99) mg/dL Calcium 8.2 L (8.4-10.2) mg/dL Total Protein 5.8 L (6.3-8.2) g/dL Albumin 3.2 L (3.5-5.0) g/dL Assessment and Plan Plan: Assessment and plan #1 congestive heart failure, LV function unknown #2 non-ST elevation [place] #3 history of aortic valve replacement #4 hypertension #5 diabetes #6 hyperlipidemia #7 acute on chronic renal disease Plan Continue with current dose of IV Lasix, check lytes BUN and creatinine in the morning, patient will need to undergo cardiac catheterization once cleared by nephrology. DNP note has been reviewed, I agree with a documented findings and plan of care. Patient was seen and examined.
--- NOTE | 2019-01-12 15:49 | PN ---
PROGRESS NOTE Patient is seen for followup for acute kidney injury on top of chronic kidney disease. Patient's PURA inhibitors were held. His Lasix is also on hold. He states he is doing fairly well. Patient denies any significant chest pains or shortness of breath. He was admitted with CHF and acute myocardial infarction. The patient's cardiac catheterization was held yesterday secondary to elevated creatinine. Baseline creatinine is about 1.9 to 2 mg/dL, it did go up to 2.7 yesterday. PHYSICAL EXAMINATION: On examination today, blood pressure this morning was 142/62, heart rate 76 per minute. He is afebrile. EXAMINATION OF THE HEART: S1, S2. EXAMINATION OF THE LUNGS: Bilateral breath sounds are heard. Decreased breath sounds at bases. No crackles or wheezing is heard. Abdomen is soft, obese, nontender. Examination of the lower extremities shows no significant edema. LAB: Labs show sodium 141, potassium 4.4, BUN 57, serum creatinine 2.68, hemoglobin 10.6 g/dL. ASSESSMENT: 1. Acute kidney injury on top of chronic kidney disease, mostly cardiorenal. The PURA inhibitors are currently on hold as blood pressure was on the lower side. The patient has been diuresed. Lasix is currently on hold. Repeat chest x-ray is stable. Continue off of IV fluids. 2. Congestive heart failure, acute on top of chronic, mainly systolic. 3. Cardiomyopathy, ejection fraction 45% to 50% percent with severely dilated left atrium. 4. Status post acute myocardial infarction, maintained on IV heparin. 5. Chronic kidney disease, NKF stage 3B to 4, secondary to nephrosclerosis. Baseline creatinine 1.9 to 2 mg/dL. PLAN: Continue to hold off on the Lasix for now. We will add p.o. Lasix starting tomorrow and continue to hold off on PURA inhibitors as well. Avoid hypotension and repeat labs in a.m. MMODL / IJN: [id number] /
[2019-01-12 17:04] LABS: Glucose,Whole Blood 113 mg/dL (75-99)
[2019-01-12] MEDS: IPRATROPIUM-ALBUTEROL 3 ML NEB INHALATION SCH (18:53)
--- NOTE | 2019-01-12 19:10 | PN ---
PROGRESS NOTE DATE OF SERVICE: 01/12/2019 This 88-year-old gentleman admitted with acute non-ST elevation myocardial infarction, also had CHF exacerbation. The patient did not have a cardiac cath because of the elevated renal function, kidney function. The creatinine on admission was only 2.28. Currently is 2.68. Historically, history was not available at this time. The patient also had troponins elevated up to 9.70 indicating myocardial infarction. Patient being closely monitored. Multiple consultants are following the patient closely. PAST MEDICAL HISTORY: Reviewed. REVIEW OF SYSTEMS: CARDIOVASCULAR: No angina. RESPIRATORY SYSTEM: As mentioned earlier. GI no nausea or vomiting. as mentioned earlier. CENTRAL NERVOUS SYSTEM: No numbness. No weakness. CURRENT MEDICATIONS: Reviewed and include: 1. Tylenol p.r.n. 2. Zyloprim 300 mg q.h.s. 3. Xanax 0.25 q.6h p.r.n. 4. Norvasc 10 mg. 5. Aspirin 81 mg. 6. Lipitor 40 mg. 7. Rocaltrol. 8. Coreg 6.25. 9. Klonopin 0.2 mg. 10.Plavix. 11.Vitamin B12. 12.Lasix 40 IV b.i.d. 13.Heparin b.i.d. 14.Alprazolam 25 mg p.o. q.8h. 15.Levbid 0.375 mg p.o. b.i.d. 16.NovoLog scale. 17.Levemir 45 units subcu q.h.s. 18.Imdur 30 mg p.o. daily. 19.Lactinex 1 daily. 20.Narcan 0.2 q.2h p.r.n. 21.Nitrostat. 22.Effexor XR 150 mg p.o. daily. PHYSICAL EXAM: Patient is alert, oriented x3. Pulse 77. Blood pressure 135/90, respiration 18, temperature is 97.7, pulse ox 93% on 6 L. HEENT: Conjunctivae normal. Oral mucosa moist. NECK is no jugular venous distention. No carotid bruit. No lymph node enlargement. CARDIOVASCULAR: S1, S2 muffled. RESPIRATORY: Breath sounds diminished in the bases. A few scattered rhonchi and crackles. ABDOMEN: Soft, nontender. LEGS: No edema. No swelling. CENTRAL NERVOUS SYSTEM: Higher functions as mentioned earlier. Moves all four extremities. No focal deficits. Lymphatics: No lymph nodes palpable in the neck, axillae or groin. SKIN: No ulcer. No rash. No bleeding. JOINTS: No active deforming arthropathy. LABS: WBC 13.2, hemoglobin 11.6 and troponin 9.70. The creatinine is 2.68 today and the chest x-ray which was personally reviewed by me showed bibasilar infiltrate, which is improving. ASSESSMENT: 1. Acute non ST-segment elevation myocardial infarction, present on admission. 2. Congestive heart failure acute exacerbation acute on chronic systolic dysfunction ejection fraction 45-50 percent. 3. Severe mitral regurgitation. Nonrheumatic. 4. Troponin elevated up to 9.710. 5. Diabetes mellitus type 2, chronically on insulin. 6. History of hypertension. 7. Chronic kidney stage 3 from diabetic nephropathy possibly nephrosclerosis. 8. Chronic obstructive pulmonary disease. 9. Anxiety, depression. 10.Essential hypertension. 11.Heparin monitoring. RECOMMENDATIONS AND DISCUSSION: In this 88-year-old gentleman who presented with multiple complex medical issues, we will monitor the patient closely. Continue the current management and symptomatic treatment. The patient will require cardiac catheterization but renal function slightly worsening at this time. Cardiology is following the patient closely and recommend repeat BUN, creatinine, continue the current dose of Lasix and also awaiting for nephrology clearance for cardiac catheterization. The prognosis extremely guarded because of multiple complex medical issues. Further recommendations to follow. Patient had some scattered rhonchi bilaterally. I would recommend monitor blood sugars closely and also recommend a small dose of bronchodilators also. MMODL / IJN: [id number] /
[2019-01-12] MEDS: INSULIN DETEMIR (LEVEMIR) 100 UNIT/ML SYR SQ SCH (20:36)
[2019-01-12] MEDS: ALLOPURINOL 300 MG TAB PO SCH (20:36)
[2019-01-12] MEDS: CYANOCOBALAMIN 500 MCG TAB PO SCH (20:37)
[2019-01-12] MEDS: ASPIRIN 81 MG PO SCH (20:37)
[2019-01-12 21:14] LABS: Glucose,Whole Blood 138 mg/dL (75-99)
[2019-01-13 06:03] LABS: Glucose,Whole Blood 85 mg/dL (75-99)
[2019-01-13] MEDS: CARVEDILOL 6.25 MG TAB PO SCH ×2 (06:18→17:43)
[2019-01-13] MEDS: hydrALAZINE HCL 25 MG TAB PO SCH ×3 (06:18→20:32)
[2019-01-13 06:58] LABS: Basophils % (A) 1 %; Eosinophils # (A) 0.6 k/uL (0-0.7); Eosinophils % (A) 7 %; HCT 31.7 % (39.0-53.0); HGB 10.4 gm/dL (13.0-17.5); Lymphocytes # (A) 0.7 k/uL (1.0-4.8); Lymphocytes % (A) 9 %; MCH 34.1 pg (25.0-35.0); MCHC 32.7 g/dL (31.0-37.0); MCV 104.4 fL (80.0-100.0); Macrocytosis Slight; Mean Platelet Volume 8.9; Monocytes # (A) 0.6 k/uL (0-1.0); Monocytes % (A) 7 %; Neutrophils % (A) 75 %; Platelet Count 203 k/uL (150-450); RBC 3.04 m/uL (4.30-5.90); RDW 13.3 % (11.5-15.5)
[2019-01-13 07:01] LABS: Partial Thromboplastin Time 77.8 sec (22.0-30.0); Prothrombin Time 10.9 sec (9.0-12.0)
[2019-01-13 07:03] LABS: Calcium 8.3 mg/dL (8.4-10.2); Potassium 4.4 mmol/L (3.5-5.1)
[2019-01-13] MEDS: IPRATROPIUM-ALBUTEROL 3 ML NEB INHALATION SCH ×3 (07:35→19:25)
[2019-01-13] MEDS: HEPARIN SOD,PORK IN 0.45% NACL 25,000 UNIT in 0.45% NACL 1 250ML.BAG IV SCH (08:26)
[2019-01-13] MEDS: ATORVASTATIN 40 MG TAB PO SCH (08:28)
[2019-01-13] MEDS: ISOSORBIDE MONONITRATE ER 30 MG TAB.ER.24H PO SCH (08:28)
[2019-01-13] MEDS: LACTOBACILLUS ACIDOPH & BULGAR 1 EACH PACKET PO SCH (08:29)
[2019-01-13] MEDS: HYOSCYAMINE SULFATE 0.375 MG TAB.ER.12H PO SCH ×2 (08:29→20:31)
[2019-01-13] MEDS: amLODIPine 10 MG TAB PO SCH (08:29)
[2019-01-13] MEDS: CLOPIDOGREL 75 MG TAB PO SCH (08:29)
[2019-01-13] MEDS: VENLAFAXINE HCL ER 150 MG CAP PO SCH (08:29)
[2019-01-13] MEDS: INSULIN ASPART (NovoLOG) 100 UNIT/ML VIAL SQ SCH ×3 (08:30→17:43)
--- NOTE | 2019-01-13 10:49 | P.PN ---
Subjective Progress Note Date: 01/13/19 This is a pleasant 88-year-old gentleman with history of diabetes, hypertension, hyperlipidemia, renal disease, prior TIA, history of aortic valve replacement, who follows with Dr. García in the office. Of recent, the patient has been experiencing symptoms of progressively worsening shortness of breath with exertion. He presented to the hospital on this occasion with symptoms of difficulty in breathing. According to the patient he could not catch his breath at all. He denies any chest pressure or palpitations. Chest x-ray shows advanced pulmonary edema. His EKG on arrival here showed a normal sinus rhythm with nonspecific ST-T wave changes. Blood pressure on arrival here 164/99, h eart rate in the 90s, 93% on 2 L of oxygen. Blood pressure this morning 150/80 with a heart rate in the 70s, 96% on 40% BiPAP. White blood cell count on admission 17.8, 13.7 this morning, hemoglobin 11.5 on admission, 11.6 this morning, platelet count 238. Sodium 139, potassium 5.0, BUN 38 and creatinine 2.2. BNP level 17,800. Troponin 3.2 and 6.6.At the time of my examination this morning, patient is lying somewhat reclined in bed, does state that his breathing is significantly improved although not back to his normal. He states that just prior to admission here, he was having something to drink, and he inhaled feeling like it went into his lungs, he had a severe coughing spell which seemed to make his shortness of breath significantly worse. The patient had been seen recently by Dr. García in the office and was advised as an outpatient to undergo cardiac catheterization on this coming Monday. 01/10/2019 Patient seen and examined this morning, sitting up in the chair bedside. He diuresed well yesterday and through the night and feels considerably better today. Patient diuresed approximately 3200 mL of urine through the night, although his weight isn't reflective of good diuresis. His white blood cell count is normal, hemoglobin 10.7, platelet count 223. Sodium 140, potassium 4.1, BUN 48 and creatinine 2.21. I appreciate nephrology's consultation, it appears that patient's creatinine does sit around 1.9. 01/12/2009 Patient was seen and examined this morning, he feels well, breathing is stable, denies any chest discomfort. His creatinine today is 2.7, for this reason a cardiac catheterization will again be deferred for another 24-48 hours. At pressure 134/90 with a heart rate in the 70s, 93% on 6 L of oxygen. Repeat chest x-ray performed yesterday showed overall improvement in the appearance of the chest. The patient does continue to be on IV Lasix, we will leave the determination of diuretic dosing up to nephrology as well as IV fluids. 01/13/2018 Patient seen and examined this morning, he feels well, states that he slept well through the night last night. His creatinine today is up to 2.8. Objective - Vital Signs Vital signs: Vital Signs Temp 98.1 F 01/13/19 08:00 Pulse 62 01/13/19 08:27 Resp 20 01/13/19 08:27 BP 147/65 01/13/19 08:00 Pulse Ox 94 L 01/13/19 08:00 Intake & Output 01/12/19 01/13/19 01/13/19 18:59 06:59 18:59 Intake Total 250 360 930 Output Total 500 925 Balance -250 -565 930 Weight 92.2 kg Intake: Intake, IV Titration 250 Amount Heparin Sod,Pork in 0.45% 250 NaCl 25,000 unit In 0.45 % NaCl 1 250ml.bag @ 10. 67 UNITS/KG/HR 10.008 mls /hr IV .Q24H [facility] Rx#: [id number] Oral 250 360 680 Output: Urine 500 925 Other: Voiding Method Urinal Urinal Urinal Diaper Incontinent # Voids 3 2 - Exam PHYSICAL EXAMINATION: GENERAL: 88-year-old gentleman in no acute distress at the time of my examination HEENT: Head is atraumatic, normocephalic. Pupils equal, round. Sclera anicteric. Conjunctiva are clear. Mucous membranes of the mouth are moist. Neck is supple. There is elevated jugular venous pressure. No carotid bruit is heard. HEART EXAMINATION: S1 and S2 1 systolic murmur is heard CHEST EXAMINATION: Lungs are clear with mild diminished air entry to the bases. ABDOMEN: Soft, nontender. Bowel sounds are heard. No organomegaly noted. EXTREMITIES: 2+ peripheral pulses with no evidence of peripheral edema and no calf tenderness noted. NEUROLOGIC patient is awake, alert and oriented 3. - Labs CBC & Chem 7: 01/13/19 06:14 01/13/19 06:14 Labs: Abnormal Lab Results - Last 24 Hours (Table) 01/12/19 01/12/19 01/12/19 Range/Units 11:17 16:24 17:03 RBC (4.30-5.90) m/uL Hgb (13.0-17.5) gm/dL Hct (39.0-53.0) % MCV (80.0-100.0) fL Lymphocytes # (1.0-4.8) k/uL APTT 56.8 H (22.0-30.0) sec BUN (9-20) mg/dL Creatinine (0.66-1.25) mg/dL POC Glucose (mg/dL) 148 H 113 H (75-99) mg/dL Calcium (8.4-10.2) mg/dL 01/12/19 01/13/19 01/13/19 Range/Units 21:11 06:14 06:14 RBC 3.04 L (4.30-5.90) m/uL Hgb 10.4 L (13.0-17.5) gm/dL Hct 31.7 L (39.0-53.0) % MCV 104.4 H (80.0-100.0) fL Lymphocytes # 0.7 L (1.0-4.8) k/uL APTT 77.8 H (22.0-30.0) sec BUN (9-20) mg/dL Creatinine (0.66-1.25) mg/dL POC Glucose (mg/dL) 138 H (75-99) mg/dL Calcium (8.4-10.2) mg/dL 01/13/19 Range/Units 06:14 RBC (4.30-5.90) m/uL Hgb (13.0-17.5) gm/dL Hct (39.0-53.0) % MCV (80.0-100.0) fL Lymphocytes # (1.0-4.8) k/uL APTT (22.0-30.0) sec BUN 62 H (9-20) mg/dL Creatinine 2.84 H (0.66-1.25) mg/dL POC Glucose (mg/dL) (75-99) mg/dL Calcium 8.3 L (8.4-10.2) mg/dL Assessment and Plan Plan: Assessment and plan #1 congestive heart failure, LV function unknown #2 non-ST elevation [place] #3 history of aortic valve replacement #4 hypertension #5 diabetes #6 hyperlipidemia #7 acute on chronic renal disease Plan Lasix administration and IV fluids as per nephrology. Cardiac catheterization will be performed once cleared by nephrology. DNP note has been reviewed, I agree with a documented findings and plan of care. Patient was seen and examined.
[2019-01-13 11:22] LABS: Glucose,Whole Blood 95 mg/dL (75-99)
--- NOTE | 2019-01-13 12:30 | PN ---
PROGRESS NOTE Patient is seen for followup for acute kidney injury on top of chronic kidney disease. He was admitted with an acute non ST elevation myocardial infarction and CHF exacerbation. Serum creatinine has been rising over the past few days and cardiac catheterization was held. This morning it is up to 2.84. The patient denies any shortness of breath. He has been maintained on IV Lasix. I will hold off on the Lasix for today. PHYSICAL EXAMINATION: Blood pressure was 147/65, heart rate 62 per minute. He is afebrile. Examination of the heart S1, S2. Examination of the lungs bilateral breath sounds are heard. Abdomen is soft, nontender. Examination of lower extremities show no significant edema. [employer]IL [employer]ENTIST exam is grossly intact. LABS: From this morning show sodium 141, potassium 4.4, chloride 107, BUN 62, serum creatinine 2.84, hemoglobin 10.4 g/dL. ASSESSMENT: 1. Acute kidney injury, cardiorenal on this admission. Currently off of PURA inhibitors. The patient has been been diuresed. I will hold off on the IV Lasix for now. It appears he does not appear to be in significant fluid overload. We will repeat labs in a.m. So far the serum creatinine has been slowly worsening. We will hold off on the cardiac catheterization unless renal function is better tomorrow. 2. Chronic kidney disease and NKF stage IV secondary to nephrosclerosis. Baseline creatinine about 1.9-2.2 mg/dL. 3. Cardiomyopathy, EF 45-50 percent with severely dilated left atrium. 4. Status post bioprosthetic aortic valve replacement. PLAN: Hold off on Lasix. Repeat labs in a.m. Continue to avoid nephrotoxic medications. MMODL / IJN: [id number] /
[2019-01-13 16:06] LABS: Glucose,Whole Blood 98 mg/dL (75-99)
[2019-01-13] MEDS: CYANOCOBALAMIN 500 MCG TAB PO SCH (20:31)
[2019-01-13] MEDS: clonazePAM 0.5 MG TAB PO PRN (20:31)
[2019-01-13] MEDS: ASPIRIN 81 MG PO SCH (20:31)
[2019-01-13] MEDS: INSULIN DETEMIR (LEVEMIR) 100 UNIT/ML SYR SQ SCH (20:31)
[2019-01-13 21:04] LABS: Glucose,Whole Blood 104 mg/dL (75-99)
--- NOTE | 2019-01-13 21:12 | PN ---
PROGRESS NOTE DATE OF SERVICE: This 88-year-old gentleman who was admitted with acute non-ST elevation myocardial infarction, also had CHF and severe mitral regurgitation and elevated troponin also. The patient also had renal failure. Cardiac cath is on hold because of the concerns with renal failure. The creatinine is 2.84 compared to 2.68 yesterday and BUN is 62. Lasix is on hold. Multiple consultants including Dr. Kumar are following the patient closely. PAST MEDICAL HISTORY: Reviewed. REVIEW OF SYSTEMS: CARDIOVASCULAR: As mentioned earlier. RESPIRATORY: As mentioned earlier. GI: No nausea. : Mentioned earlier. NERVOUS SYSTEM: No numbness or weakness. CURRENT MEDICATIONS: Reviewed and include: 1. Tylenol 650 q.6h p.r.n. 2. DuoNeb q.i.d. p.r.n. 3. Zyloprim 100 mg q.h.s. 4. Xanax 0.5 q.6h p.r.n. 5. Norvasc 10 mg daily. 6. Aspirin 81 mg q.h.s. 7. Lipitor 40 mg. 8. Rocaltrol 0.5 mg p.o. Monday, Monday. 9. Coreg 6.25 mg p.o. b.i.d. 10.Klonopin 0.25 mg b.i.d. 11.Plavix 75 mg p.o. 12.Vitamin B12 500 mg q.h.s. 13.Apresoline 25 mg p.o. q.h.s. 14.Levbid 0.37 mg p.o. b.i.d. 15.NovoLog. 16.Levemir 45 units subcu q.h.s. 17.Imdur 30 mg p.o. daily. 18.Lactinex 1 p.o. daily. 19.Narcan 0.2 q.2h p.r.n. 20.Nitrostat 0.4 mg q.h.s. 21.Effexor XR 150 mg p.o. daily. PHYSICAL EXAM: Patient is alert, oriented x3. Pulse 73, blood pressure 131/58, respiration 20, temperature 98.1, pulse ox 94% on 6 L. HEENT: Conjunctivae normal. Oral mucosa moist. Neck is no jugular venous distention. CARDIOVASCULAR: S1, S2. RESPIRATORY: Breath sounds diminished in the bases. Bilateral scattered rhonchi and crackles. ABDOMEN: Soft, obese, nontender. LEGS: No edema, no swelling. NERVOUS SYSTEM: Higher function as mentioned. Moves all four limbs. No focal motor deficits. LYMPHATICS: No lymphadenopathy in the neck, axillae, groin. SKIN: No ulcer, rash, bleeding. JOINTS: No active deforming arthropathy. LABS: The previous chest x-ray done on the 10th was personally reviewed by me which showed some increased bronchovascular markings. Other labs are hemoglobin 10.4, creatinine 2.8. Other labs are noted. ASSESSMENT: 1. Acute non ST elevation myocardial infarction, present on admission. 2. Congestive heart failure acute exacerbation with acute on chronic systolic dysfunction, ejection fraction 45-50 percent. 3. Severe mitral regurgitation nonrheumatic. 4. Troponin elevated up to 9.710. 5. Renal failure acute on chronic with possible prerenal, acute renal failure with tubular necrosis. 6. 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 7. Diabetes mellitus type 2, chronically on insulin. 8. History of hypertension. 9. Chronic obstructive pulmonary disease. 10.Anxiety, depression. 11.Heparin monitoring. 12.FULL CODE. RECOMMENDATIONS AND DISCUSSION: This 88-year-old gentleman who presented with multiple complex medical issues, will monitor the patient closely. Continue the current management and symptomatic treatment. We will recommend to continue antiplatelet agents and continue the rest of the medications. Avoid nephrotoxic agents. Otherwise, we will continue to monitor. We will hold the allopurinol for now. I would also check a serum uric acid. Guarded prognosis because of multiple complex medical issues. Further recommendations to follow. Discussed with the family at length. The patient had multiple dysfunctions involving the cardiovascular and pulmonary and as well as renal systems and continue to monitor. Further recommendations to follow. MMODL / IJN: [id number] /
[2019-01-14 06:16] LABS: Glucose,Whole Blood 78 mg/dL (75-99)
[2019-01-14] MEDS: hydrALAZINE HCL 25 MG TAB PO SCH (06:39)
[2019-01-14] MEDS: CARVEDILOL 6.25 MG TAB PO SCH ×2 (06:39→17:40)
[2019-01-14 06:40] LABS: Basophils % (A) 0 %; Eosinophils # (A) 0.5 k/uL (0-0.7); Eosinophils % (A) 7 %; HCT 30.7 % (39.0-53.0); HGB 10.2 gm/dL (13.0-17.5); Lymphocytes # (A) 0.8 k/uL (1.0-4.8); Lymphocytes % (A) 12 %; MCH 34.2 pg (25.0-35.0); MCHC 33.3 g/dL (31.0-37.0); MCV 102.8 fL (80.0-100.0); Macrocytosis Slight; Mean Platelet Volume 8.7; Monocytes # (A) 0.5 k/uL (0-1.0); Monocytes % (A) 7 %; Neutrophils # (A) 5.2 k/uL (1.3-7.7); Neutrophils % (A) 72 %; Platelet Count 203 k/uL (150-450); RBC 2.99 m/uL (4.30-5.90); RDW 13.3 % (11.5-15.5); WBC 7.3 k/uL (3.8-10.6)
[2019-01-14 06:51] LABS: Partial Thromboplastin Time 58.3 sec (22.0-30.0); Prothrombin Time 10.8 sec (9.0-12.0)
[2019-01-14 06:59] LABS: Calcium 8.4 mg/dL (8.4-10.2); Potassium 4.6 mmol/L (3.5-5.1)
[2019-01-14] MEDS: IPRATROPIUM-ALBUTEROL 3 ML NEB INHALATION SCH ×4 (07:33→20:12)
[2019-01-14] MEDS: ISOSORBIDE MONONITRATE ER 30 MG TAB.ER.24H PO SCH (09:06)
[2019-01-14] MEDS: LACTOBACILLUS ACIDOPH & BULGAR 1 EACH PACKET PO SCH (09:06)
[2019-01-14] MEDS: ATORVASTATIN 40 MG TAB PO SCH (09:06)
[2019-01-14] MEDS: amLODIPine 10 MG TAB PO SCH (09:06)
[2019-01-14] MEDS: INSULIN ASPART (NovoLOG) 100 UNIT/ML VIAL SQ SCH ×3 (09:06→17:59)
[2019-01-14] MEDS: CLOPIDOGREL 75 MG TAB PO SCH (09:06)
[2019-01-14] MEDS: VENLAFAXINE HCL ER 150 MG CAP PO SCH (09:07)
[2019-01-14] MEDS: HEPARIN SOD,PORK IN 0.45% NACL 25,000 UNIT in 0.45% NACL 1 250ML.BAG IV SCH (09:07)
[2019-01-14] MEDS: HYOSCYAMINE SULFATE 0.375 MG TAB.ER.12H PO SCH ×2 (09:07→21:23)
--- NOTE | 2019-01-14 10:54 | P.PN ---
Subjective Progress Note Date: 01/14/19 This is a pleasant 88-year-old gentleman with history of diabetes, hypertension, hyperlipidemia, renal disease, prior TIA, history of aortic valve replacement, who follows with Dr. García in the office. Of recent, the patient has been experiencing symptoms of progressively worsening shortness of breath with exertion. He presented to the hospital on this occasion with symptoms of difficulty in breathing. According to the patient he could not catch his breath at all. He denies any chest pressure or palpitations. Chest x-ray shows advanced pulmonary edema. His EKG on arrival here showed a normal sinus rhythm with nonspecific ST-T wave changes. Blood pressure on arrival here 164/99, h eart rate in the 90s, 93% on 2 L of oxygen. Blood pressure this morning 150/80 with a heart rate in the 70s, 96% on 40% BiPAP. White blood cell count on admission 17.8, 13.7 this morning, hemoglobin 11.5 on admission, 11.6 this morning, platelet count 238. Sodium 139, potassium 5.0, BUN 38 and creatinine 2.2. BNP level 17,800. Troponin 3.2 and 6.6.At the time of my examination this morning, patient is lying somewhat reclined in bed, does state that his breathing is significantly improved although not back to his normal. He states that just prior to admission here, he was having something to drink, and he inhaled feeling like it went into his lungs, he had a severe coughing spell which seemed to make his shortness of breath significantly worse. The patient had been seen recently by Dr. García in the office and was advised as an outpatient to undergo cardiac catheterization on this coming Monday. 01/10/2019 Patient seen and examined this morning, sitting up in the chair bedside. He diuresed well yesterday and through the night and feels considerably better today. Patient diuresed approximately 3200 mL of urine through the night, although his weight isn't reflective of good diuresis. His white blood cell count is normal, hemoglobin 10.7, platelet count 223. Sodium 140, potassium 4.1, BUN 48 and creatinine 2.21. I appreciate nephrology's consultation, it appears that patient's creatinine does sit around 1.9. 01/12/2019 Patient was seen and examined this morning, he feels well, breathing is stable, denies any chest discomfort. His creatinine today is 2.7, for this reason a cardiac catheterization will again be deferred for another 24-48 hours. At pressure 134/90 with a heart rate in the 70s, 93% on 6 L of oxygen. Repeat chest x-ray performed yesterday showed overall improvement in the appearance of the chest. The patient does continue to be on IV Lasix, we will leave the determination of diuretic dosing up to nephrology as well as IV fluids. 01/13/2019 Patient seen and examined this morning, he feels well, states that he slept well through the night last night. His creatinine today is up to 2.8. 01/14/2019 Patient seen and examined this morning, sitting up at the side of his bed, feels well, denies any chest discomfort and is breathing overall is stable. Blood pressure 118/60 with a heart rate in the 60s, 94% on 6 L of oxygen.White blood cell count 7.3, hemoglobin 10.2, platelet count 203. Sodium 138, potassium 4.6, BUN 59 and creatinine 2.7. Objective - Vital Signs Vital signs: Vital Signs Temp 98.2 F 01/14/19 09:00 Pulse 68 01/14/19 09:00 Resp 18 01/14/19 09:00 BP 118/59 01/14/19 09:00 Pulse Ox 94 L 01/14/19 09:00 Intake & Output 01/13/19 01/14/19 01/14/19 18:59 06:59 18:59 Intake Total 2360 270 Output Total 600 Balance 1760 270 Weight 93.2 kg Intake: IV 30 20 Invasive Line 3 30 20 Intake, IV Titration 250 250 Amount Heparin Sod,Pork in 0.45% 250 250 NaCl 25,000 unit In 0.45 % NaCl 1 250ml.bag @ 10. 67 UNITS/KG/HR 10.008 mls /hr IV .Q24H [facility] Rx#: [id number] Oral 2080 Output: Urine 375 Stool 225 Other: Voiding Method Urinal Urinal - Exam PHYSICAL EXAMINATION: GENERAL: 88-year-old gentleman in no acute distress at the time of my examination HEENT: Head is atraumatic, normocephalic. Pupils equal, round. Sclera anicteric. Conjunctiva are clear. Mucous membranes of the mouth are moist. Neck is supple. There is elevated jugular venous pressure. No carotid bruit is heard. HEART EXAMINATION: S1 and S2 1 systolic murmur is heard CHEST EXAMINATION: Lungs are clear with mild diminished air entry to the bases. ABDOMEN: Soft, nontender. Bowel sounds are heard. No organomegaly noted. EXTREMITIES: 2+ peripheral pulses with no evidence of peripheral edema and no calf tenderness noted. NEUROLOGIC patient is awake, alert and oriented 3. - Labs CBC & Chem 7: 01/14/19 06:00 01/14/19 06:00 Labs: Abnormal Lab Results - Last 24 Hours (Table) 01/13/19 01/13/19 01/14/19 Range/Units 12:23 21:03 06:00 RBC (4.30-5.90) m/uL Hgb (13.0-17.5) gm/dL Hct (39.0-53.0) % MCV (80.0-100.0) fL Lymphocytes # (1.0-4.8) k/uL APTT 60.1 H 58.3 H (22.0-30.0) sec Chloride (98-107) mmol/L BUN (9-20) mg/dL Creatinine (0.66-1.25) mg/dL Glucose (74-99) mg/dL POC Glucose (mg/dL) 104 H (75-99) mg/dL 01/14/19 01/14/19 Range/Units 06:00 06:00 RBC 2.99 L (4.30-5.90) m/uL Hgb 10.2 L (13.0-17.5) gm/dL Hct 30.7 L (39.0-53.0) % MCV 102.8 H (80.0-100.0) fL Lymphocytes # 0.8 L (1.0-4.8) k/uL APTT (22.0-30.0) sec Chloride 108 H (98-107) mmol/L BUN 59 H (9-20) mg/dL Creatinine 2.70 H (0.66-1.25) mg/dL Glucose 67 L (74-99) mg/dL POC Glucose (mg/dL) (75-99) mg/dL Assessment and Plan Plan: Assessment and plan #1 congestive heart failure, LV function unknown #2 non-ST elevation [place] #3 history of aortic valve replacement #4 hypertension #5 diabetes #6 hyperlipidemia #7 acute on chronic renal disease Plan After discussion with Dr. Kumar, it is felt that patient may benefit most from continuing maximal medical therapy, maximizing renal function as an outpatient. We will add Plavix to his medication regime. Discontinue IV heparin and increase hydralazine. From our perspective he should be able to be discharged home once cleared by primary and nephrology and follow-up with Dr. García in the office. DNP note has been reviewed, I agree with a documented findings and plan of care. Patient was seen and examined.
[2019-01-14 11:51] LABS: Glucose,Whole Blood 166 mg/dL (75-99)
--- NOTE | 2019-01-14 12:34 | XR ---
EXAMINATION TYPE: XR chest 1V portable DATE OF EXAM: 01/14/2019 Comparison: 01/11/2019 Clinical History: 88-year-old male with CHF Findings: Median sternotomy wires are present. Heart upper limits of normal in size. Mild diffuse interstitial and vascular prominence. Small right pleural effusion with patchy right mid and lower lung density an d patchy left basilar density, slightly increased in the interval. Impression: Borderline heart size with interstitial changes and slight increasing patchy bibasilar densities with continued small right effusion. Correlate for possible [id number] CHF as an etiology. Stable t o slightly worsened in the interval.
[2019-01-14] MEDS ORDERED: IPRATROPIUM-ALBUTEROL 3 ML NEB INHALATION PRN (13:31)
[2019-01-14] MEDS ORDERED: FUROSEMIDE 40 MG TAB PO STA (13:47)
[2019-01-14] MEDS: hydrALAZINE HCL 50 MG TAB PO SCH ×2 (13:50→21:28)
[2019-01-14 13:51] LABS: Amorphous Sediment,Urine Rare /hpf; Appearance,Urine Clear (Clear); Bacteria,Urine Rare /hpf; Bilirubin,Urine Negative (Negative); Blood,Urine Negative (Negative); Color,Urine Yellow; Glucose,Urine (UA) Trace (Negative); Hyaline Casts,Urine 1 /lpf (0-2); Ketones,Urine Negative (Negative); Leukocyte Esterase,Urine Negative (Negative); Mucus,Urine Rare /hpf; Nitrite,Urine Negative (Negative); Protein,Urine 3+ (Negative); RBC,Urine 1 /hpf (0-5); Specific Gravity,Urine 1.017 (1.001-1.035); Urobilinogen,Urine <2.0 mg/dL (<2.0); WBC,Urine 1 /hpf (0-5)
--- NOTE | 2019-01-14 15:34 | CONS ---
CONSULTATION PULMONARY CRITICAL CARE CONSULTATION: This is a patient who was admitted way back on January 08, 2019. He came into the emergency room complaining of being short of breath. PRIMARY CARE PHYSICIAN: Dr. Minda Lujan down in [place]. He presented with shortness of breath over 5 days prior to admission. Apparently, the shortness of breath had been getting worse. The patient had a previous history of aortic valve replacement, CAD and was apparently going to have a coronary catheterization with Cardiology. He also suffers from chronic kidney disease and sees a priming mixture carrier. I believe his optoelectronic technician is Dr. Capps. His primary as I mentioned above is Minda Lujan. Anyway, the patient was admitted with a diagnosis of congestive heart failure and apparently currently is doing very well and possibly may be discharged tomorrow. I am not sure exactly why I was consulted after a 7-day admission. Nonetheless, he is doing better. When I went into the room to see him, the family members were at the bedside. He was sitting up in a chair. He has got about ready to get a breathing treatment. He was on a couple L of nasal O2. Does not use oxygen at home. In addition, apparently in the past, he was diagnosed with having sleep apnea syndrome and was prescribed CPAP, but he never uses so, therefore the machine was taken back to the company. I did tell the family that it would be probably be used for him for him to be again evaluated for sleep apnea syndrome. Anyway, as I mentioned, he is feeling a lot better. Denies shortness of breath. Denies any chest pain or chest discomfort. He is not coughing or wheezing. Not producing any phlegm. He was a smoker for about 25 years. He only smokes cigars and never inhaled them. Never smoked cigarettes. CURRENT HOME MEDICATIONS: At least prior to admission included Zyloprim, aspirin, Lipitor, Z-Vin, calcitriol, Coreg, Plavix, vitamin B12, vitamin D2, Levbid, Lantus insulin, Humalog insulin, probiotics, lisinopril, Effexor XR, amlodipine, Klonopin, hydralazine, and a Medrol Dosepak. ALLERGIES: Include SULFA ANTIBIOTICS including BACTRIM and TRIMETHOPRIM. PAST MEDICAL HISTORY: Included diabetes mellitus, hypertension, chronic kidney disease, TIA, cataracts, coronary artery disease with previous bypass grafting and previous aortic valve replacement for aortic stenosis. He also apparently suffers from both anxiety and depression. He denies any lung disease. Additional medical history includes hyperlipidemia. It appears that he also likely has a history of gout as he is on Zyloprim. He is not a particularly good historian As it relates to his medical history. SOCIAL HISTORY: Positive for previous cigar smoking, He did not inhale. Denies any illicit drug use and any alcohol use. FAMILY HISTORY: Noncontributory. REVIEW OF SYSTEMS: CONSTITUTIONAL: Negative. NEUROLOGIC: Negative. HEENT: Negative. CARDIOVASCULAR: Negative. PULMONARY: Shortness of breath, which is fully resolved at this time. GI: Negative. : Negative. RHEUMATOLOGIC: Negative. IMMUNOLOGIC: Negative. ENDOCRINOLOGIC: Negative. DERMATOLOGIC: Negative. Current vital signs are reviewed. Currently, his temperature is 96.7, heart rate 62, respiratory rate 18, blood pressure 149/67 mean 94, 5 L saturation 95%. Appears in no acute distress. No respiratory distress. No audible wheezing. No use of accessory muscles and no conversational dyspnea appreciated. HEENT: Examination is grossly unremarkable. He is wearing nasal O2. NECK: Supple. Full range of motion. No adenopathy, thyromegaly or neck vein distention. CARDIOVASCULAR: Examination reveals regular rhythm and rate. Heart rate in the low 70s. S1, S2 normal. There is no murmur that I could detect, no S3, S4. LUNGS: Reveal a few scattered crackles. A few scattered rhonchi noted. No wheezes. Breath sounds are equal bilaterally. ABDOMEN: Soft. Bowel sounds are heard. EXTREMITIES: Intact. No cyanosis, clubbing, or edema. SKIN: Without rash. NEUROLOGIC: Examination is brief but nonfocal. X-RAY: Abdominal x-ray done on January 14 still shows some interstitial changes and some cardiomegaly. There is also small right-sided pleural effusion. In my opinion, the chest x-ray still shows heart failure, although it is improved. It is improved from the prior chest x-ray on admission. LABS: Reviewed. White count 7.3, hemoglobin 10.2, hematocrit 30.7, platelet count 203,000. PT, INR 10.8 and 1.0, PTT is 58.3. Sodium, potassium normal, chloride is 108, CO2 is 23, anion gap is 7, BUN and creatinine were 59 and 2.70. Urine shows 3+ protein, trace glucose, rare bacteria. Medications are reviewed. From the pulmonary standpoint, he is on updrafts and Symbicort. Probably does not need any there and certainly probably does not need the Symbicort. It should be pointed out that on admission his troponins were 3.290 and 9.710 [place] [id number]. 1. Probable non ST-segment elevation myocardial infarction complicated by acute CHF, improved. 2. Doubt significant chronic obstructive pulmonary disease, as the patient mostly smokes cigars and did not inhale. 3. History of diabetes mellitus. 4. Hypertension. 5. Hyperlipidemia. 6. Previous bypass grafting. 7. Status post aortic valve replacement. 8. History of chronic kidney disease. 9. Previous history of transient ischemic attack. 10.History of cataracts. 11.History of an history of anxiety/depression. PLAN: From my perspective, the patient is doing well. I am going to stop the Symbicort. He can continue on the updrafts for now. Probably does not need them at home. He may need oxygen at home. Additional recommendations and suggestions are forthcoming. Prognosis is guarded. MMODL / IJN: [id number] / [id number]
[2019-01-14 16:47] LABS: Glucose,Whole Blood 92 mg/dL (75-99)
--- NOTE | 2019-01-14 19:57 | PN ---
PROGRESS NOTE Patient is seen for followup for acute kidney injury on top of chronic kidney disease. Discussed with Cardiology. Plan is to proceed with cardiac catheterization as outpatient. Serum creatinine has improved slightly, and it is down to 2.7 from 2.8 yesterday. Patient has had good urine output. He is not having any chest pains. He does complain of mild shortness of breath. On examination today, blood pressure was 118/59, heart rate of 80 per minute. Patient is afebrile. EXAMINATION OF THE HEART: S1 and S2. EXAMINATION OF LUNGS: Bilateral breath sounds are heard. ABDOMEN: Soft, non-tender. Examination of lower extremities shows no significant edema. SPIRAL GEAR GENERATOR exam is grossly intact. Labs show hemoglobin 10.2 g/dL, sodium 138, potassium 4.6, BUN 59, serum creatinine 2.7. ASSESSMENT: 1. Acute kidney injury, mainly cardiorenal. Serum creatinine is up from baseline, although it is slightly improved today as compared to yesterday. I will give a dose of oral Lasix. Continue to hold off on IV Lasix for now. Okay to proceed with cardiac catheterization as outpatient. Repeat labs in 3-4 days as outpatient post discharge. 2. Chronic kidney disease, NKF stage IV, secondary to nephrosclerosis. Baseline creatinine 1.9 to 2.2 mg/dL. Patient does have proteinuria, which is new. This will need to be worked up. 3. Cardiomyopathy, ejection fraction 45% to 50%, with severely dilated left atrium. 4. Status post bioprosthetic aortic valve replacement. PLAN: Oral Lasix x1 today. Patient can be discharged. He will follow up as outpatient. He will proceed with cardiac catheterization as outpatient. We will repeat labs in 3-4 days post discharge. MMODL / IJN: [id number] /
[2019-01-14] MEDS ORDERED: SYMBICORT 80-4.5 MCG INHALER INHALATION SCH (20:00)
[2019-01-14 21:02] LABS: Glucose,Whole Blood 172 mg/dL (75-99)
[2019-01-14] MEDS: INSULIN DETEMIR (LEVEMIR) 100 UNIT/ML SYR SQ SCH (21:23)
[2019-01-14] MEDS: ASPIRIN 81 MG PO SCH (21:23)
[2019-01-14] MEDS: CYANOCOBALAMIN 500 MCG TAB PO SCH (21:23)
--- NOTE | 2019-01-14 21:25 | PN ---
PROGRESS NOTE DATE OF SERVICE: 01/14/2019 This 88-year-old gentleman who was admitted with acute generalized weakness, myocardial infarction, also had CHF and as well as renal failure also. Cardiology is following the patient closely and because of the renal failure, recommending outpatient followup and possibly intervention as an outpatient. The patient is minimally hypoxic. The patient also had features of CHF. The patient requires 5-6 L of oxygen at this time. Dr. Kimble was consulted today for hypoxia. Otherwise, the patient is being closely monitored. No chest pain. No palpitation. PHYSICAL EXAM: Alert and oriented times three. Pulse 54, blood pressure 140/70, respiration 18, temperature 98.8. Pulse ox 92% on BiPAP. HEENT is conjunctivae normal. Oral mucosa moist. NECK is no jugular venous distention. No carotid bruit. No lymph node enlargement. Cardiovascular: S1, S2 muffled. Respiratory: Breath sounds diminished in the bases. Bilateral scattered rhonchi and crackles. ABDOMEN is soft, nontender. LEGS are no edema. No swelling. CENTRAL NERVOUS SYSTEM: No focal deficits. LABS: WBC 7.3, hemoglobin 10.2, sodium 130, potassium 3.6, creatinine is 2.70. ASSESSMENT: 1. Acute non-ST segment elevation myocardial infarction, present on admission. 2. Congestive heart failure acute exacerbation with acute on chronic systolic dysfunction, ejection fraction 45-50 percent with severe mitral regurgitation, nonrheumatic. 3. Troponin elevated up to 9.70 on admission. 4. Renal failure, acute on chronic with possible prerenal acute renal failure with acute tubular necrosis. 5. 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 6. Diabetes mellitus type 2, chronically on insulin. 7. History of hypertension. 8. History of chronic obstructive pulmonary disease. 9. Anxiety/depression. 10.Heparin monitoring. 11.FULL CODE. RECOMMENDATIONS AND DISCUSSION: Recommend to continue current medications, medical management and symptomatic treatment. Otherwise pulmonary input appreciated. Continue to monitor. Once the patient is stabilized and able to titrate down oxygen, discharge home soon. Further recommendations to follow. MMODL / IJN: [id number] /
[2019-01-15] MEDS: hydrALAZINE HCL 50 MG TAB PO SCH ×3 (05:20→21:00)
[2019-01-15 06:28] LABS: Glucose,Whole Blood 131 mg/dL (75-99)
[2019-01-15 06:42] LABS: Basophils % (A) 0 %; Eosinophils # (A) 0.4 k/uL (0-0.7); Eosinophils % (A) 4 %; HCT 31.8 % (39.0-53.0); HGB 10.3 gm/dL (13.0-17.5); Lymphocytes # (A) 0.5 k/uL (1.0-4.8); Lymphocytes % (A) 4 %; MCH 33.8 pg (25.0-35.0); MCHC 32.6 g/dL (31.0-37.0); MCV 103.7 fL (80.0-100.0); Macrocytosis Slight; Mean Platelet Volume 9.1; Monocytes # (A) 0.6 k/uL (0-1.0); Monocytes % (A) 6 %; Neutrophils # (A) 9.2 k/uL (1.3-7.7); Neutrophils % (A) 85 %; Platelet Count 220 k/uL (150-450); RBC 3.06 m/uL (4.30-5.90); RDW 13.4 % (11.5-15.5); WBC 10.8 k/uL (3.8-10.6)
[2019-01-15 06:50] LABS: Calcium 8.6 mg/dL (8.4-10.2); Potassium 5.1 mmol/L (3.5-5.1); Prothrombin Time 10.5 sec (9.0-12.0)
[2019-01-15] MEDS: CARVEDILOL 6.25 MG TAB PO SCH ×2 (07:08→17:53)
[2019-01-15] MEDS: IPRATROPIUM-ALBUTEROL 3 ML NEB INHALATION SCH ×4 (08:09→19:14)
[2019-01-15] MEDS: INSULIN ASPART (NovoLOG) 100 UNIT/ML VIAL SQ SCH ×3 (08:28→17:53)
[2019-01-15] MEDS: CLOPIDOGREL 75 MG TAB PO SCH (08:28)
[2019-01-15] MEDS: HYOSCYAMINE SULFATE 0.375 MG TAB.ER.12H PO SCH ×2 (08:28→20:22)
[2019-01-15] MEDS: LACTOBACILLUS ACIDOPH & BULGAR 1 EACH PACKET PO SCH (08:28)
[2019-01-15] MEDS: amLODIPine 10 MG TAB PO SCH (08:28)
[2019-01-15] MEDS: ISOSORBIDE MONONITRATE ER 30 MG TAB.ER.24H PO SCH (08:28)
[2019-01-15] MEDS: VENLAFAXINE HCL ER 150 MG CAP PO SCH (08:28)
[2019-01-15] MEDS: ATORVASTATIN 40 MG TAB PO SCH (08:28)
[2019-01-15] MEDS: CALCITRIOL 0.25 MCG CAP PO SCH (08:36)
--- NOTE | 2019-01-15 10:40 | P.PN ---
Subjective Progress Note Date: 01/15/19 Principal diagnosis: Shortness of breath, probable non-ST elevated myocardial infarction complicated by acute CHF On 01/15/2018 patient seen in follow-up on selective care unit, he is awake and alert, no acute distress, he wear his BiPAP unit last night, he is currently on 6 L of oxygen, and his pulse ox is 95-96%, he is afebrile, no specific complaints, his lung sounds are essentially clear. No rhonchi or wheezing or rales. Objective - Vital Signs Vital signs: Vital Signs Temp 98.4 F 01/15/19 08:30 Pulse 82 01/15/19 08:30 Resp 18 01/15/19 08:30 BP 144/66 01/15/19 08:30 Pulse Ox 96 01/15/19 08:30 Intake & Output 01/14/19 01/15/19 01/15/19 18:59 06:59 18:59 Intake Total 560 200 240 Output Total 220 775 Balance 340 -575 240 Intake: Oral 560 200 240 Output: Urine 220 550 Stool 225 Other: Voiding Method Urinal - Exam GENERAL EXAM: Alert, pleasant, 88-year-old white male, on 6 L of oxygen with a pulse ox of 94-95%, comfortable in no apparent distress. HEAD: Normocephalic/atraumatic. EYES: Normal reaction of pupils, equal size. Conjunctiva pink, sclera white. NOSE: Clear with pink turbinates. THROAT: No erythema or exudates. NECK: No masses, no JVD, no thyroid enlargement, no adenopathy. CHEST: No chest wall deformity. Symmetrical expansion. LUNGS: Equal air entry with no crackles, wheeze, rhonchi or dullness. CVS: Regular rate and rhythm, normal S1 and S2, no gallops, no murmurs, no rubs ABDOMEN: Soft, nontender. No hepatosplenomegaly, normal bowel sounds, no guarding or rigidity. EXTREMITIES: No clubbing, no edema, no cyanosis, 2+ pulses and upper and lower extremities. MUSCULOSKELETAL: Muscle strength and tone normal. SPINE: No scoliosis or deformity SKIN: No rashes CENTRAL NERVOUS SYSTEM: Alert and oriented -3. No focal deficits, tone is normal in all 4 extremities. PSYCHIATRIC: Alert and oriented -3. Appropriate affect. Intact judgment and insight. - Labs CBC & Chem 7: 01/15/19 06:01 01/15/19 06:01 Labs: Abnormal Lab Results - Last 24 Hours (Table) 01/14/19 01/14/19 01/14/19 Range/Units 11:48 13:33 20:58 WBC (3.8-10.6) k/uL RBC (4.30-5.90) m/uL Hgb (13.0-17.5) gm/dL Hct (39.0-53.0) % MCV (80.0-100.0) fL Neutrophils # (1.3-7.7) k/uL Lymphocytes # (1.0-4.8) k/uL Chloride (98-107) mmol/L BUN (9-20) mg/dL Creatinine (0.66-1.25) mg/dL Glucose (74-99) mg/dL POC Glucose (mg/dL) 166 H 172 H (75-99) mg/dL Urine Protein 3+ H (Negative) Urine Glucose (UA) Trace H (Negative) Amorphous Sediment Rare H (None) /hpf Urine Bacteria Rare H (None) /hpf Urine Mucus Rare H (None) /hpf 01/15/19 01/15/19 01/15/19 Range/Units 06:01 06:01 06:27 WBC 10.8 H (3.8-10.6) k/uL RBC 3.06 L (4.30-5.90) m/uL Hgb 10.3 L (13.0-17.5) gm/dL Hct 31.8 L (39.0-53.0) % MCV 103.7 H (80.0-100.0) fL Neutrophils # 9.2 H (1.3-7.7) k/uL Lymphocytes # 0.5 L (1.0-4.8) k/uL Chloride 108 H (98-107) mmol/L BUN 58 H (9-20) mg/dL Creatinine 2.48 H (0.66-1.25) mg/dL Glucose 133 H (74-99) mg/dL POC Glucose (mg/dL) 131 H (75-99) mg/dL Urine Protein (Negative) Urine Glucose (UA) (Negative) Amorphous Sediment (None) /hpf Urine Bacteria (None) /hpf Urine Mucus (None) /hpf Assessment and Plan Plan: Assessment: #1. Probable non-ST elevated myocardial infarction, complicated by acute congestive heart failure and acute hypoxemic respiratory failure #2. History of cigar smoking, patient denies inhaling the smoke, doubt significant COPD #3. History of diabetes mellitus #4. Attention #5. Hyperlipidemia #6. History of previous bypass grafting #7. History of aortic valve stenosis with aortic valve replacement #8. History of chronic kidney disease stage III #9. His history of TIA #10. anxiety and depression #11. Obstructive sleep apnea, not on CPAP therapy, for noncompliance Plan: Continue current medical treatment, wean FiO2, increase activity as tolerated, patient is breathing easier, sounds are clear on today's exam. Yesterday chest x-ray showed interstitial changes and slight increasing patchy bibasilar densities with small right pleural effusion. Clinically is stable. We recomme nded patient follow-up with his primary care physician in regards to possibility of repeating a sleep study requalify him for CPAP device at home. Could be considered for discharge from pulmonary perspective, I performed a history & physical examination of the patient and discussed their management with my nurse practitioner, Radha Alfaro. I reviewed the nurse practitioner's note and agree with the documented findings and plan of care. Lung sounds are positive for clear breath sounds. The findings and the impression was discussed with the patient. I attest to the documentation by the nurse practitioner. Time with Patient: Less than 30
[2019-01-15 12:15] LABS: Glucose,Whole Blood 90 mg/dL (75-99)
[2019-01-15] MEDS: FUROSEMIDE 40 MG TAB PO SCH (12:56)
--- NOTE | 2019-01-15 16:03 | P.PN ---
Subjective Progress Note Date: 01/15/19 This is a pleasant 88-year-old gentleman with history of diabetes, hypertension, hyperlipidemia, renal disease, prior TIA, history of aortic valve replacement, who follows with Dr. García in the office. Of recent, the patient has been experiencing symptoms of progressively worsening shortness of breath with exertion. He presented to the hospital on this occasion with symptoms of difficulty in breathing. According to the patient he could not catch his breath at all. He denies any chest pressure or palpitations. Chest x-ray shows advanced pulmonary edema. His EKG on arrival here showed a normal sinus rhythm with nonspecific ST-T wave changes. Blood pressure on arrival here 164/99, h eart rate in the 90s, 93% on 2 L of oxygen. Blood pressure this morning 150/80 with a heart rate in the 70s, 96% on 40% BiPAP. White blood cell count on admission 17.8, 13.7 this morning, hemoglobin 11.5 on admission, 11.6 this morning, platelet count 238. Sodium 139, potassium 5.0, BUN 38 and creatinine 2.2. BNP level 17,800. Troponin 3.2 and 6.6.At the time of my examination this morning, patient is lying somewhat reclined in bed, does state that his breathing is significantly improved although not back to his normal. He states that just prior to admission here, he was having something to drink, and he inhaled feeling like it went into his lungs, he had a severe coughing spell which seemed to make his shortness of breath significantly worse. The patient had been seen recently by Dr. García in the office and was advised as an outpatient to undergo cardiac catheterization on this coming Monday. 01/10/2019 Patient seen and examined this morning, sitting up in the chair bedside. He diuresed well yesterday and through the night and feels considerably better today. Patient diuresed approximately 3200 mL of urine through the night, although his weight isn't reflective of good diuresis. His white blood cell count is normal, hemoglobin 10.7, platelet count 223. Sodium 140, potassium 4.1, BUN 48 and creatinine 2.21. I appreciate nephrology's consultation, it appears that patient's creatinine does sit around 1.9. 01/12/2019 Patient was seen and examined this morning, he feels well, breathing is stable, denies any chest discomfort. His creatinine today is 2.7, for this reason a cardiac catheterization will again be deferred for another 24-48 hours. At pressure 134/90 with a heart rate in the 70s, 93% on 6 L of oxygen. Repeat chest x-ray performed yesterday showed overall improvement in the appearance of the chest. The patient does continue to be on IV Lasix, we will leave the determination of diuretic dosing up to nephrology as well as IV fluids. 01/13/2019 Patient seen and examined this morning, he feels well, states that he slept well through the night last night. His creatinine today is up to 2.8. 01/14/2019 Patient seen and examined this morning, sitting up at the side of his bed, feels well, denies any chest discomfort and is breathing overall is stable. Blood pressure 118/60 with a heart rate in the 60s, 94% on 6 L of oxygen.White blood cell count 7.3, hemoglobin 10.2, platelet count 203. Sodium 138, potassium 4.6, BUN 59 and creatinine 2.7. 01/15/2019 Patient seen and examined this morning, feels well, creatinine down to 2.4 to day. Breathing is stable, denies any chest discomfort. Blood pressure 144/70 with a heart rate in the 70s, 95% on 4 L of oxygen. White blood cell count 10.8, hemoglobin 10.3, platelet count 220. Sodium 139, potassium 5.1, BUN 58 and creatinine 2.4. Objective - Vital Signs Vital signs: Vital Signs Temp 97.4 F L 01/15/19 11:49 Pulse 80 01/15/19 15:50 Resp 18 01/15/19 11:49 BP 144/74 01/15/19 11:49 Pulse Ox 95 01/15/19 11:49 Intake & Output 01/14/19 01/15/19 01/15/19 18:59 06:59 18:59 Intake Total 560 200 358 Output Total 220 775 Balance 340 -575 358 Intake: Oral 560 200 358 Output: Urine 220 550 Stool 225 Other: Voiding Method Urinal # Voids 1 # Bowel Movements 1 - Exam PHYSICAL EXAMINATION: GENERAL: 88-year-old gentleman in no acute distress at the time of my examination HEENT: Head is atraumatic, normocephalic. Pupils equal, round. Sclera anicteric. Conjunctiva are clear. Mucous membranes of the mouth are moist. Neck is supple. There is elevated jugular venous pressure. No carotid bruit is heard. HEART EXAMINATION: S1 and S2 1 systolic murmur is heard CHEST EXAMINATION: Lungs are clear with mild diminished air entry to the bases. ABDOMEN: Soft, nontender. Bowel sounds are heard. No organomegaly noted. EXTREMITIES: 2+ peripheral pulses with no evidence of peripheral edema and no calf tenderness noted. NEUROLOGIC patient is awake, alert and oriented 3. - Labs CBC & Chem 7: 01/15/19 06:01 01/15/19 06:01 Labs: Abnormal Lab Results - Last 24 Hours (Table) 01/14/19 01/15/19 01/15/19 Range/Units 20:58 06:01 06:01 WBC 10.8 H (3.8-10.6) k/uL RBC 3.06 L (4.30-5.90) m/uL Hgb 10.3 L (13.0-17.5) gm/dL Hct 31.8 L (39.0-53.0) % MCV 103.7 H (80.0-100.0) fL Neutrophils # 9.2 H (1.3-7.7) k/uL Lymphocytes # 0.5 L (1.0-4.8) k/uL Chloride (98-107) mmol/L BUN (9-20) mg/dL Creatinine (0.66-1.25) mg/dL Glucose (74-99) mg/dL POC Glucose (mg/dL) 172 H (75-99) mg/dL Hemoglobin A1c 7.0 H (4.0-6.0) % 01/15/19 01/15/19 Range/Units 06:01 06:27 WBC (3.8-10.6) k/uL RBC (4.30-5.90) m/uL Hgb (13.0-17.5) gm/dL Hct (39.0-53.0) % MCV (80.0-100.0) fL Neutrophils # (1.3-7.7) k/uL Lymphocytes # (1.0-4.8) k/uL Chloride 108 H (98-107) mmol/L BUN 58 H (9-20) mg/dL Creatinine 2.48 H (0.66-1.25) mg/dL Glucose 133 H (74-99) mg/dL POC Glucose (mg/dL) 131 H (75-99) mg/dL Hemoglobin A1c (4.0-6.0) % Assessment and Plan Plan: Assessment and plan #1 congestive heart failure, LV function unknown #2 non-ST elevation [place] #3 history of aortic valve replacement #4 hypertension #5 diabetes #6 hyperlipidemia #7 acute on chronic renal disease Plan From cardiology's perspective, patient may be able to be discharged home once cleared by nephrology and primary. He will follow-up with Dr. García in the office and at this point in time we'll continue current medical therapy. DNP note has been reviewed, I agree with a documented findings and plan of care. Patient was seen and examined.
[2019-01-15 16:45] LABS: Glucose,Whole Blood 135 mg/dL (75-99)
[2019-01-15] MEDS ORDERED: FUROSEMIDE 10 MG/ML 4 ML VIAL IV STA (19:33)
[2019-01-15] MEDS: CYANOCOBALAMIN 500 MCG TAB PO SCH (20:22)
[2019-01-15] MEDS: ASPIRIN 81 MG PO SCH (20:22)
--- NOTE | 2019-01-15 20:22 | PN ---
PROGRESS NOTE DATE OF SERVICE: 01/15/2019 This 88-year-old gentleman who was admitted with acute fma-DO-scwqdtf-elevation myocardial infarction had CHF, acute exacerbation, as well. The patient is on medical treatment at this time. However, the patient is also severely hypoxic at this time. The pulse ox is about 95% on 6 L. This morning the patient was off BiPAP and the patient had an episode of chest pain. On exam, alert and oriented x3. Pulse 92, blood pressure 161/67, respiration 18, temperature 97.5, pulse ox 91% on 5 L. HEENT: Conjunctivae normal. NECK: No jugular venous distention. CARDIOVASCULAR SYSTEM: S1, S2 muffled. RESPIRATORY SYSTEM: Breath sounds diminished at the bases. A few scattered rhonchi and crackles. ABDOMEN: Soft, non-tender. LEGS: No edema. No swelling. NERVOUS SYSTEM: No focal deficit. LABS: WBC 10.8, hemoglobin 10.3. Sodium 139, potassium 5.1. ASSESSMENT: 1. Acute wws-IC-dvtqebs-elevation myocardial infarction, present on admission. 2. Congestive heart failure, acute exacerbation, with acute on chronic systolic dysfunction, ejection fraction 40% to 50%, with severe mitral regurgitation, non- rheumatic. 3. Troponin elevated up to 9.7 on admission. 4. Renal failure, acute on chronic, with possibly prerenal acute renal failure with acute tubular necrosis. 5. 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 6. 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 7. History of hypertension. 8. History of chronic obstructive pulmonary disease. 9. Anxiety. 10.Depression. 11.Heparin monitoring. 12.FULL CODE. RECOMMENDATIONS AND DISCUSSION: I recommend to continue current medications, continue with the monitoring, symptomatic treatment. I would recommend continued oxygen. Titrate oxygen and see whether the patient can avoid the use of BiPAP at this time. We will continue to monitor. Will closely follow with Dr. Kimble, the drama director. Guarded prognosis. Further recommendations to follow. MMODL / IJN: [id number] /
[2019-01-15 20:58] LABS: Glucose,Whole Blood 130 mg/dL (75-99)
[2019-01-15] MEDS: INSULIN DETEMIR (LEVEMIR) 100 UNIT/ML SYR SQ SCH (21:00)
--- NOTE | 2019-01-15 22:00 | PN ---
PROGRESS NOTE Patient is seen for followup for acute kidney injury on top of chronic kidney disease. He was admitted to the hospital with chest pain and shortness of breath. He ruled in for acute [id number] [place]. Patient's ejection fraction was noted to be 45% to 50%. He was initially diuresed. Respiratory status improved. However, serum creatinine began to rise. Therefore diuretics were held and patient was restarted on oral Lasix yesterday. Serum creatinine continues to improve. It is down to 2.4 from peak of 2.8 mg/dL. Baseline creatinine is about 2.2 mg/dL. The plan is for catheterization down the road. The patient will be discharged and he will have cardiac catheterization done as outpatient. On examination this morning, blood pressure was 144/74, heart rate 77 per minute. Patient is afebrile. EXAMINATION OF THE HEART: S1 and S2. EXAMINATION OF LUNGS: Decreased breath sounds at the bases. Minimal basal crackles are heard. ABDOMEN: Soft, non-tender. Examination of lower extremities shows no evidence of edema. Labs show sodium 139, potassium 5.1, BUN 58, serum creatinine 2.48, hemoglobin 10.3 g/dL. ASSESSMENT: 1. Acute kidney injury, cardiorenal and secondary to diuresis, currently improved. Maintain patient on 40 mg of Lasix p.o. daily. 2. Congestive heart failure, acute on top of chronic, systolic; ejection fraction 45% to 50%, currently improved. 3. Status post [id number] [place], planned for cardiac catheterization as outpatient. 4. Chronic kidney disease secondary to nephrosclerosis. Baseline creatinine 1.9 to 2.2 mg/dL. 5. History of bioprosthetic aortic valve replacement. PLAN: Maintain Lasix 40 mg p.o. daily. Follow up as outpatient. MMODL / IJN: [id number] /
[2019-01-16 06:33] LABS: Glucose,Whole Blood 73 mg/dL (75-99)
[2019-01-16] MEDS: CARVEDILOL 6.25 MG TAB PO SCH ×2 (06:34→17:23)
[2019-01-16] MEDS: hydrALAZINE HCL 50 MG TAB PO SCH ×3 (06:34→20:35)
[2019-01-16] MEDS: INSULIN ASPART (NovoLOG) 100 UNIT/ML VIAL SQ SCH ×3 (07:10→17:22)
[2019-01-16 07:18] LABS: Basophils % (A) 0 %; Eosinophils # (A) 0.4 k/uL (0-0.7); Eosinophils % (A) 3 %; HCT 34.1 % (39.0-53.0); HGB 11.1 gm/dL (13.0-17.5); Lymphocytes # (A) 0.6 k/uL (1.0-4.8); Lymphocytes % (A) 5 %; MCH 33.7 pg (25.0-35.0); MCHC 32.7 g/dL (31.0-37.0); MCV 103.1 fL (80.0-100.0); Macrocytosis Slight; Monocytes # (A) 0.6 k/uL (0-1.0); Monocytes % (A) 5 %; Neutrophils # (A) 10.6 k/uL (1.3-7.7); Neutrophils % (A) 85 %; Platelet Count 262 k/uL (150-450); RBC 3.31 m/uL (4.30-5.90); RDW 13.3 % (11.5-15.5); WBC 12.4 k/uL (3.8-10.6)
[2019-01-16 07:38] LABS: Calcium 9.3 mg/dL (8.4-10.2)
[2019-01-16 07:40] LABS: Prothrombin Time 10.8 sec (9.0-12.0)
[2019-01-16] MEDS: IPRATROPIUM-ALBUTEROL 3 ML NEB INHALATION SCH ×4 (08:14→20:36)
[2019-01-16] MEDS: ISOSORBIDE MONONITRATE ER 30 MG TAB.ER.24H PO SCH (08:50)
[2019-01-16] MEDS: LACTOBACILLUS ACIDOPH & BULGAR 1 EACH PACKET PO SCH (08:50)
[2019-01-16] MEDS: VENLAFAXINE HCL ER 150 MG CAP PO SCH (08:50)
[2019-01-16] MEDS: ATORVASTATIN 40 MG TAB PO SCH (08:50)
[2019-01-16] MEDS: HYOSCYAMINE SULFATE 0.375 MG TAB.ER.12H PO SCH ×2 (08:50→20:35)
[2019-01-16] MEDS: CLOPIDOGREL 75 MG TAB PO SCH (08:50)
[2019-01-16] MEDS: amLODIPine 10 MG TAB PO SCH (08:50)
[2019-01-16] MEDS: FUROSEMIDE 40 MG TAB PO SCH (08:50)
[2019-01-16 10:19] VITALS: BMI 29.2
[2019-01-16] MEDS ORDERED: SODIUM CHLORIDE 0.9% 1,000 ML in EMPTY BAG 1 BAG IV ONE (10:43)
[2019-01-16] MEDS ORDERED: ASPIRIN 325 MG TAB PO STA (10:43)
[2019-01-16] MEDS ORDERED: NITROGLYCERIN SL TABS 0.4 MG TAB SUBLINGUAL PRN (10:43)
[2019-01-16] MEDS ORDERED: ALPRAZolam 0.25 MG TAB PO PRN (10:43)
[2019-01-16] MEDS ORDERED: ATORVASTATIN 80 MG TAB PO STA (10:43)
[2019-01-16] MEDS ORDERED: ALPRAZolam 0.5 MG TAB PO PRN (10:43)
--- NOTE | 2019-01-16 11:37 | P.PN ---
Subjective Progress Note Date: 01/16/19 This is a pleasant 88-year-old gentleman with history of diabetes, hypertension, hyperlipidemia, renal disease, prior TIA, history of aortic valve replacement, who follows with Dr. García in the office. Of recent, the patient has been experiencing symptoms of progressively worsening shortness of breath with exertion. He presented to the hospital on this occasion with symptoms of difficulty in breathing. According to the patient he could not catch his breath at all. He denies any chest pressure or palpitations. Chest x-ray shows advanced pulmonary edema. His EKG on arrival here showed a normal sinus rhythm with nonspecific ST-T wave changes. Blood pressure on arrival here 164/99, h eart rate in the 90s, 93% on 2 L of oxygen. Blood pressure this morning 150/80 with a heart rate in the 70s, 96% on 40% BiPAP. White blood cell count on admission 17.8, 13.7 this morning, hemoglobin 11.5 on admission, 11.6 this morning, platelet count 238. Sodium 139, potassium 5.0, BUN 38 and creatinine 2.2. BNP level 17,800. Troponin 3.2 and 6.6.At the time of my examination this morning, patient is lying somewhat reclined in bed, does state that his breathing is significantly improved although not back to his normal. He states that just prior to admission here, he was having something to drink, and he inhaled feeling like it went into his lungs, he had a severe coughing spell which seemed to make his shortness of breath significantly worse. The patient had been seen recently by Dr. García in the office and was advised as an outpatient to undergo cardiac catheterization on this coming Monday. 01/10/2019 Patient seen and examined this morning, sitting up in the chair bedside. He diuresed well yesterday and through the night and feels considerably better today. Patient diuresed approximately 3200 mL of urine through the night, although his weight isn't reflective of good diuresis. His white blood cell count is normal, hemoglobin 10.7, platelet count 223. Sodium 140, potassium 4.1, BUN 48 and creatinine 2.21. I appreciate nephrology's consultation, it appears that patient's creatinine does sit around 1.9. 01/12/2019 Patient was seen and examined this morning, he feels well, breathing is stable, denies any chest discomfort. His creatinine today is 2.7, for this reason a cardiac catheterization will again be deferred for another 24-48 hours. At pressure 134/90 with a heart rate in the 70s, 93% on 6 L of oxygen. Repeat chest x-ray performed yesterday showed overall improvement in the appearance of the chest. The patient does continue to be on IV Lasix, we will leave the determination of diuretic dosing up to nephrology as well as IV fluids. 01/13/2019 Patient seen and examined this morning, he feels well, states that he slept well through the night last night. His creatinine today is up to 2.8. 01/14/2019 Patient seen and examined this morning, sitting up at the side of his bed, feels well, denies any chest discomfort and is breathing overall is stable. Blood pressure 118/60 with a heart rate in the 60s, 94% on 6 L of oxygen.White blood cell count 7.3, hemoglobin 10.2, platelet count 203. Sodium 138, potassium 4.6, BUN 59 and creatinine 2.7. 01/15/2019 Patient seen and examined this morning, feels well, creatinine down to 2.4 to day. Breathing is stable, denies any chest discomfort. Blood pressure 144/70 with a heart rate in the 70s, 95% on 4 L of oxygen. White blood cell count 10.8, hemoglobin 10.3, platelet count 220. Sodium 139, potassium 5.1, BUN 58 and creatinine 2.4. 01/16/2019 Patient seen and examined this morning, the nurse had ambulated the patient in the hallway, on returning to the room he became extremely short of breath appeared to go into pulmonary edema. He was given a stat dose of IV Lasix. He is currently at this point on a nonrebreather. According to the patient, he's feeling significantly better than he was earlier this morning. Let pressure 126/60 with a heart rate in the 80s, 93% on 5 L of oxygen. White blood cell count 12.4, hemoglobin 11.1, platelet count 262. Sodium 141, potassium 5.0, BUN [address] Kumar did have a discussion with us, she recommended patient go ahead and proceed with cardiac catheterization. Dr. Mac did speak with Dr. García and the decision was made to proceed with EMPERATRIZ and cardiac catheterization tomorrow morning if the patient's breathing is improved and he is able to lie flat. The risks and the benefits were again explained to the patient in detail. Objective - Vital Signs Vital signs: Vital Signs Temp 97.1 F L 01/16/19 08:55 Pulse 86 01/16/19 11:32 Resp 18 01/16/19 08:55 BP 126/64 01/16/19 08:55 Pulse Ox 93 L 01/16/19 08:55 Intake & Output 01/15/19 01/16/19 01/16/19 18:59 06:59 18:59 Intake Total 848 240 Balance 848 240 Weight 92.4 kg 92.4 kg Intake: Oral 848 240 Other: Voiding Method Urinal # Voids 2 # Bowel Movements 1 - Exam PHYSICAL EXAMINATION: GENERAL: 88-year-old gentleman in no acute distress at the time of my examination HEENT: Head is atraumatic, normocephalic. Pupils equal, round. Sclera anicteric. Conjunctiva are clear. Mucous membranes of the mouth are moist. Neck is supple. There is elevated jugular venous pressure. No carotid bruit is heard. HEART EXAMINATION: S1 and S2 1 systolic murmur is heard CHEST EXAMINATION: Lungs reveal rales bilaterally with diminished air entry to the bases. ABDOMEN: Soft, nontender. Bowel sounds are heard. No organomegaly noted. EXTREMITIES: 2+ peripheral pulses with no evidence of peripheral edema and no calf tenderness noted. NEUROLOGIC patient is awake, alert and oriented 3. - Labs CBC & Chem 7: 01/16/19 06:39 01/16/19 06:39 Labs: Abnormal Lab Results - Last 24 Hours (Table) 01/15/19 01/15/19 01/15/19 Range/Units 06:01 16:43 20:57 WBC (3.8-10.6) k/uL RBC (4.30-5.90) m/uL Hgb (13.0-17.5) gm/dL Hct (39.0-53.0) % MCV (80.0-100.0) fL Neutrophils # (1.3-7.7) k/uL Lymphocytes # (1.0-4.8) k/uL BUN (9-20) mg/dL Creatinine (0.66-1.25) mg/dL Glucose (74-99) mg/dL POC Glucose (mg/dL) 135 H 130 H (75-99) mg/dL Hemoglobin A1c 7.0 H (4.0-6.0) % 01/16/19 01/16/19 01/16/19 Range/Units 06:31 06:39 06:39 WBC 12.4 H (3.8-10.6) k/uL RBC 3.31 L (4.30-5.90) m/uL Hgb 11.1 L (13.0-17.5) gm/dL Hct 34.1 L (39.0-53.0) % MCV 103.1 H (80.0-100.0) fL Neutrophils # 10.6 H (1.3-7.7) k/uL Lymphocytes # 0.6 L (1.0-4.8) k/uL BUN 64 H (9-20) mg/dL Creatinine 2.61 H (0.66-1.25) mg/dL Glucose 63 L (74-99) mg/dL POC Glucose (mg/dL) 73 L (75-99) mg/dL Hemoglobin A1c (4.0-6.0) % Assessment and Plan Plan: Assessment and plan #1 congestive heart failure, LV function unknown #2 non-ST elevation [place] #3 history of aortic valve replacement #4 hypertension #5 diabetes #6 hyperlipidemia #7 acute on chronic renal disease Plan Patient appeared to go into pulmonary edema this morning, he was given a one- time dose of IV Lasix, and is currently on oral diuretics. Dr. García did come and have a discussion with the patient, he will be scheduled to undergo EMPERATRIZ and cardiac catheterization tomorrow. The risks and the benefits were again explained to the patient in detail. DNP note has been reviewed, I agree with a documented findings and plan of care. Patient was seen and examined.
[2019-01-16 12:04] LABS: Glucose,Whole Blood 180 mg/dL (75-99)
[2019-01-16] MEDS ORDERED: FUROSEMIDE 10 MG/ML 4 ML VIAL IV ONE (15:00)
--- NOTE | 2019-01-16 15:11 | PN ---
PROGRESS NOTE Patient is seen for followup for acute kidney injury on top of chronic kidney disease. He was admitted to the hospital with shortness of breath. Patient is found to have an acute myocardial infarction and he was in CHF. He was diuresed initially. However, his creatinine increased and therefore the cardiac catheterization was held. Plan was to discharge the patient and perform the cardiac catheterization as outpatient. In the meantime, serum creatinine decreased from peak of 2.8 to about 2.4 yesterday. The Lasix was also decreased over the past few days. Last night, patient developed acute pulmonary edema. He received IV Lasix and he is currently better and I have discussed with family that we should likely proceed with cardiac catheterization as he may have underlying ongoing ischemia. They are aware of the risks with the dye including the need for renal replacement therapy. The family is willing to proceed with this. PHYSICAL EXAMINATION: On examination, blood pressure this morning was 126/64, heart rate 84 per minute. He is afebrile. Examination of the heart, S1, S2. Examination of the lungs, bilateral breath sounds are heard. Abdomen is soft, nontender. Examination of the lower extremities shows no significant edema. 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 LABS: Show sodium 141, potassium 5.0, BUN 64, serum creatinine 2.6, hemoglobin 11.1. ASSESSMENT: 1. Acute kidney injury, mainly cardiorenal. Creatinine had improved as diuretics were held. However, patient is in volume overload again and we gave him another dose of IV Lasix this afternoon. At this time, it would be okay to proceed with cardiac catheterization given the fact that the patient went back into pulmonary edema last night. 2. Congestive heart failure with symptoms of chronic mainly diastolic. 3. Status post acute non ST elevation myocardial infarction. 4. 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 PLAN: Repeat IV Lasix this afternoon. We can proceed with cardiac catheterization. Family is aware of possible need for renal replacement therapy and they are agreeable. MMODL / IJN: [id number] /
[2019-01-16 16:57] LABS: Glucose,Whole Blood 129 mg/dL (75-99)
[2019-01-16] MEDS: CYANOCOBALAMIN 500 MCG TAB PO SCH (20:35)
[2019-01-16] MEDS: ASPIRIN 81 MG PO SCH (20:35)
--- NOTE | 2019-01-16 21:29 | PN ---
PROGRESS NOTE DATE OF SERVICE: 01/16/2019 This 88-year-old gentleman who was admitted with acute also had CHF acute exacerbation. Patient also had renal failure. Cardiac catheterization has been pending because of increased elevated creatinine. send home. Planned outpatient cardiac cath, but however the patient could not be sent home because of the necessity of high- flow oxygen. Last night the patient had episodes of desaturation, shortness of breath and as well as some chest pain. This morning, Cardiology, Nephrology saw the patient and patient apparently will undergo cardiac catheterization with a significantly guarded prognosis to which the patient and family were agreeable. PAST MEDICAL HISTORY: Reviewed. REVIEW OF SYSTEMS: CARDIOVASCULAR: No angina or palpitations. RESPIRATORY: As mentioned. RESPIRATIONS: No cough. GI as mentioned earlier. : No dysuria. CENTRAL NERVOUS SYSTEM: No numbness or weakness. CURRENT MEDICATIONS ARE: Reviewed and include: 1. Tylenol 650 q.6h p.r.n. 2. DuoNeb q.i.d. and p.r.n. 3. Xanax 0.5 q.6h p.r.n. 4. Norvasc 10 mg p.o. daily. 5. Aspirin 81 mg p.o. q.h.s. 6. Lipitor 40 mg p.o. daily. 7. Rocaltrol 0.5 mg Monday, and Monday. 8. Coreg 6.25 mg a.c. b.i.d. 9. Klonopin 0.2 mg b.i.d. 10.Plavix 75 mg p.o. daily. 11.Vitamin D2 500 mcg p.o. q.h.s. 12.Lasix 40 mg p.o. daily. 13.Apresoline 50 mg p.o. q8. 14.Levbid 0.37 mg p.o. b.i.d. 15.NovoLog. 16.Levemir 45 units subcu q.h.s. 17.Imdur 30 mg. 18.Lactinex. 19.Narcan. 20.Nitrostat. 21.Effexor X-RAY. PHYSICAL EXAMINATION: The patient is alert and oriented x2. Pulse 81, blood pressure 130/64, respiration 18, temperature 97.9. Pulse ox 92% on 6 L. HEENT: Conjunctivae normal. NECK: Jugular venous distention at the root of the neck. CARDIOVASCULAR: S1, S2 muffled. Ejection fraction unknown. RESPIRATION: Breath sounds diminished in the bases. Scattered rhonchi and crackles. Expiratory wheezing also present. ABDOMEN: Soft, nontender. No mass palpable. LEGS: No edema. No swelling. CENTRAL NERVOUS SYSTEM: Higher functions as mentioned earlier. Moves all four extremities. No focal deficits. Lymphatics: No lymph nodes palpable in the neck, axillae or groin. SKIN: No ulcer, rash or bleeding. JOINTS: No active deforming arthropathy. LAB STUDIES: WBC 12.8, hemoglobin 11.5, sodium 132, potassium 5, creatinine is 2.6. ASSESSMENT: 1. Acute non ST-elevation myocardial infarction, present on admission. 2. congestive heart failure acute exacerbation with acute on chronic systolic dysfunction, ejection fraction 40-50 percent with severe mitral regurgitation, nonrheumatic. 3. Troponin elevated up to 9.7 on admission. 4. Renal failure, acute on chronic with possible prerenal acute renal failure with acute tubular necrosis. 5. 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 6. 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 7. History of hypertension. 8. History of chronic obstructive pulmonary disease. 9. Anxiety and depression. 10.Heparin monitoring. 11.FULL CODE. RECOMMENDATIONS AND DISCUSSION: In this 88-year-old gentleman who presented with multiple complex medical issues. We will monitor the patient closely. Continue the current medications, management and symptomatic treatment. Nephrology cleared the patient for cardiac catheterization at this time with some added risk because of the high creatinine and multiple other medical issues. We will continue to monitor. Continue rest of medications. Ensure oxygenation. Pulmonary is also following the patient closely. The prognosis guarded because of multiple complex medical issues. Further recommendations to follow. MMODL / IJN: [id number] / PAGE
[2019-01-16 21:53] LABS: Glucose,Whole Blood 190 mg/dL (75-99)
[2019-01-16] MEDS: INSULIN DETEMIR (LEVEMIR) 100 UNIT/ML SYR SQ SCH (21:55)
[2019-01-17 06:08] LABS: Glucose,Whole Blood 181 mg/dL (75-99)
[2019-01-17 06:41] LABS: Basophils % (A) 0 %; Eosinophils # (A) 0.5 k/uL (0-0.7); Eosinophils % (A) 5 %; HCT 32.7 % (39.0-53.0); HGB 10.2 gm/dL (13.0-17.5); Lymphocytes # (A) 0.9 k/uL (1.0-4.8); Lymphocytes % (A) 9 %; MCH 32.6 pg (25.0-35.0); MCHC 31.3 g/dL (31.0-37.0); MCV 104.1 fL (80.0-100.0); Macrocytosis Slight; Mean Platelet Volume 8.9; Monocytes # (A) 0.6 k/uL (0-1.0); Monocytes % (A) 7 %; Neutrophils # (A) 7.4 k/uL (1.3-7.7); Neutrophils % (A) 77 %; Platelet Count 257 k/uL (150-450); RBC 3.14 m/uL (4.30-5.90); WBC 9.7 k/uL (3.8-10.6)
[2019-01-17 06:50] LABS: INR 1.1 (<1.2); Prothrombin Time 11.2 sec (9.0-12.0)
[2019-01-17 06:51] LABS: Calcium 9.1 mg/dL (8.4-10.2); Potassium 4.9 mmol/L (3.5-5.1)
[2019-01-17] MEDS ORDERED: fentaNYL (PF) 50 MCG/ML 2 ML AMP ONE (06:57)
[2019-01-17] MEDS ORDERED: ASPIRIN 325 MG TAB ONE (06:58)
[2019-01-17] MEDS: INSULIN ASPART (NovoLOG) 100 UNIT/ML VIAL SQ SCH ×3 (07:07→18:14)
[2019-01-17] MEDS ORDERED: SODIUM CHLORIDE 0.9% 500 ML 500 ML IV ONE (07:12)
[2019-01-17] MEDS ORDERED: ASPIRIN 325 MG TAB PO ONE (07:12)
[2019-01-17] MEDS ORDERED: BENZOCAINE SPRAY 1 CAN MUCOUS MEM ONE (07:14)
[2019-01-17] MEDS ORDERED: fentaNYL (PF) 50 MCG/ML 2 ML AMP IV ONE (07:15)
[2019-01-17] MEDS ORDERED: MIDAZOLAM (PF) 2 MG/2 ML VIAL IV ONE (07:17)
[2019-01-17] MEDS: FUROSEMIDE 40 MG TAB PO SCH (07:55)
[2019-01-17] MEDS ORDERED: MORPHINE SULFATE 2 MG/ML SYRINGE IVP STA (07:56)
[2019-01-17] MEDS ORDERED: FUROSEMIDE 10 MG/ML 4 ML VIAL IV STA ×2 (08:11→10:17)
[2019-01-17] MEDS ORDERED: LIDOCAINE 1% INJ 10MG/ML (20 ML MDV) SQ ONE (08:30)
[2019-01-17] MEDS ORDERED: IV FLUID CONTINUATION 400 ML IV ONE (08:38)
[2019-01-17] MEDS: IPRATROPIUM-ALBUTEROL 3 ML NEB INHALATION SCH ×4 (08:42→19:38)
[2019-01-17] MEDS ORDERED: BIVALIRUDIN BOLUS 250 MG/50 ML IV ONE (08:51)
[2019-01-17] MEDS ORDERED: BIVALIRUDIN 250 MG in SODIUM CHLORIDE 0.9% 37 ML IV ONE (08:52)
--- NOTE | 2019-01-17 09:13 | ECHOT ---
TRANSESOPHAGEAL ECHOCARDIOGRAM DATE OF SERVICE: January 17, 2019 PERFORMING PHYSICIAN: Ronnie Capps MD. PROCEDURE PERFORMED: Transesophageal echocardiogram. INDICATION: This is a pleasant 88-year-old gentleman who presented to the hospital with heart failure and was found to have cardiomyopathy with EF around 40% to 45%. with evidence of severe MR. He is scheduled to undergo a heart catheterization today and EMPERATRIZ to evaluate the mitral valve. COMPLICATION: None. LEVEL OF SEDATION: Moderate with sedation length of 15 minutes. PROCEDURE DESCRIPTION: After obtaining an informed consent, explaining the procedure, benefits, risks, complications and alternatives, the patient was brought to the transesophageal echocardiogram suite. A pulse oximetry and heart rate monitors were attached to the patient prior to the procedure. The patient's throat was sprayed using lidocaine locally. Following that, the patient was turned into left lateral position. A bite guard was placed and the patient was then sedated with the above doses of Versed and fentanyl in divided doses. Following that, the transesophageal echocardiogram probe was advanced through the bite guard into the mid esophagus where 2-D echocardiogram images as well as color Doppler images of various cardiac structures were obtained. We evaluated the interatrial septum using 2-D echocardiogram, color Doppler, and contrast study. The procedure was completed. There were no complications. FINDINGS: The left ventricle appeared to be mildly dilated. The left ventricular systolic function seems to be mildly impaired with EF around 40%. There was what seems to be possible inferobasal hypokinesia, but the wall motion abnormalities were very difficult to evaluate because the study was technically difficult. The left atrium appeared to be severely dilated. The aortic valve is bioprosthetic valve and seems to be functioning normally. The mitral valve is mildly thickened with evidence of severe MR with central jet. There was mild to moderate tricuspid regurgitation seen. The left atrial appendage appeared to be free from any thrombus. The interatrial septum appeared to be intact. CONCLUSION: 1. Cardiomyopathy with ejection fraction around 40%. It was difficult to evaluate for wall motion abnormalities. There is possible inferobasal hypokinesia. 2. Severely dilated left atrium. 3. Severe mitral regurgitation with a central jet. 4. Bioprosthetic aortic valve seems to be functioning normally. 5. Mild to moderate tricuspid regurgitation. 6. Intact interatrial septum without any evidence of shunt. 7. Normal left atrial appendage. 8. No evidence of pericardial effusion. MMODL / IJN: [id number] /
[2019-01-17] MEDS ORDERED: NITROGLYCERIN 1000MCG/10ML SYRINGE INTRACORON ONE (09:23)
[2019-01-17] MEDS ORDERED: IOPAMIDOL-370 125ML BTL INJ ONE (09:28)
[2019-01-17] MEDS ORDERED: RX INFO: IV CONTRAST WAS GIVEN 1 EACH MISC MISCELLANE PRN (09:32)
[2019-01-17] MEDS ORDERED: ATROPINE SULFATE 0.1 MG/ML 10ML SYRINGE IV PRN (09:32)
[2019-01-17] MEDS ORDERED: MAG HYDROX/AL HYDROX/SIMETH 30 ML CUP PO PRN (09:32)
[2019-01-17] MEDS ORDERED: NITROGLYCERIN SL TABS 0.4 MG TAB SUBLINGUAL PRN (09:32)
[2019-01-17] MEDS ORDERED: ZOLPIDEM 5 MG TAB PO PRN (09:32)
[2019-01-17] MEDS ORDERED: CLOPIDOGREL 75 MG TAB PO ONE (09:41)
[2019-01-17] MEDS ORDERED: SODIUM CHLORIDE 0.9% 1,000 ML IV SCH (09:45)
[2019-01-17 11:20] LABS: Glucose,Whole Blood 140 mg/dL (75-99)
--- NOTE | 2019-01-17 11:28 | P.PN ---
Subjective Patient is seen in follow-up for acute kidney injury on chronic kidney disease. Patient has chronic kidney disease stage IV with baseline creatinine in the range of 1.9-2.2 secondary to nephrosclerosis. Creatinine today is 2.8. Patient underwent a EMPERATRIZ and cardiac catheterization with 2 stents placed to the circumflex this morning. She and has systolic CHF with ejection fraction of 40% with severe mitral regurgitation. He was dyspneic this morning and has received 2 doses of Lasix 40 mg IV. He's starting to feel better. Urine output is good. He has a Beltrán catheter. Family is present at bedside. Vital signs are stable. General: The patient appeared well nourished and normally developed. HEENT: Head exam is unremarkable. Neck is without jugular venous distension. LUNGS: Breath sounds decreased. HEART: Rate and Rhythm are regular. First and second heart sounds normal. No murmurs, rubs or gallops. ABDOMEN: Abdominal exam reveals normal bowel sounds. Non-tender and non- distended. No evidence of peritonitis. EXTREMITITES: No clubbing, cyanosis, or edema. Objective - Vital Signs Vital signs: Vital Signs Temp 98.2 F 01/17/19 03:10 Pulse 87 01/17/19 07:25 Resp 19 01/17/19 03:12 BP 162/67 01/17/19 07:25 Pulse Ox 88 L 01/17/19 07:25 Intake & Output 01/16/19 01/17/19 01/17/19 18:59 06:59 18:59 Intake Total 920 200 414 Output Total 780 450 Balance 140 200 -36 Weight 92.4 kg 92.5 kg Intake: IV 414 Oral 920 200 Output: Urine 380 450 Stool 400 Other: Voiding Method Urinal # Voids 0 - Labs CBC & Chem 7: 01/17/19 05:50 01/17/19 05:50 Labs: Abnormal Lab Results - Last 24 Hours (Table) 01/16/19 01/16/19 01/16/19 Range/Units 12:03 16:56 21:14 RBC (4.30-5.90) m/uL Hgb (13.0-17.5) gm/dL Hct (39.0-53.0) % MCV (80.0-100.0) fL Lymphocytes # (1.0-4.8) k/uL BUN (9-20) mg/dL Creatinine (0.66-1.25) mg/dL Glucose (74-99) mg/dL POC Glucose (mg/dL) 180 H 129 H 190 H (75-99) mg/dL 01/17/19 01/17/19 01/17/19 Range/Units 05:50 05:50 06:02 RBC 3.14 L (4.30-5.90) m/uL Hgb 10.2 L (13.0-17.5) gm/dL Hct 32.7 L (39.0-53.0) % MCV 104.1 H (80.0-100.0) fL Lymphocytes # 0.9 L (1.0-4.8) k/uL BUN 66 H (9-20) mg/dL Creatinine 2.80 H (0.66-1.25) mg/dL Glucose 142 H (74-99) mg/dL POC Glucose (mg/dL) 181 H (75-99) mg/dL 01/17/19 Range/Units 11:19 RBC (4.30-5.90) m/uL Hgb (13.0-17.5) gm/dL Hct (39.0-53.0) % MCV (80.0-100.0) fL Lymphocytes # (1.0-4.8) k/uL BUN (9-20) mg/dL Creatinine (0.66-1.25) mg/dL Glucose (74-99) mg/dL POC Glucose (mg/dL) 140 H (75-99) mg/dL Assessment and Plan Plan: Assessment: 1. Acute kidney injury mostly prerenal secondary to cardiorenal syndrome. Creatinine 2.8 today. 2. 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 3. Systolic CHF with ejection fraction of 40% with severe mitral regurgitation. 4. Dyspnea secondary to volume overload. 5. Coronary artery disease status post cardiac catheterization this morning for 2 stents placed to the circumflex. 6. Hypertension with chronic kidney disease. 7. Insulin-dependent diabetes mellitus. Plan: Status post 80 mg of IV Lasix this morning. Check chest x-ray. I will give him an additional dose of Lasix 40 mg IV this afternoon if remains hypervolemic. No need for IV fluids as the patient is in fluid overload. Avoid nephrotoxins. Continue to monitor renal function and urine output.
[2019-01-17] MEDS: hydrALAZINE HCL 50 MG TAB PO SCH ×3 (14:37→20:15)
[2019-01-17] MEDS: CLOPIDOGREL 75 MG TAB PO SCH (14:38)
[2019-01-17] MEDS: LACTOBACILLUS ACIDOPH & BULGAR 1 EACH PACKET PO SCH (14:38)
[2019-01-17] MEDS: CARVEDILOL 6.25 MG TAB PO SCH ×2 (14:38→18:09)
[2019-01-17] MEDS: ATORVASTATIN 40 MG TAB PO SCH (15:30)
--- NOTE | 2019-01-17 15:49 | XR ---
EXAMINATION TYPE: XR chest 1V portable DATE OF EXAM: 01/17/2019 COMPARISON: 01/14/2019 HISTORY: Shortness of breath TECHNIQUE: Single frontal view of the chest is obtained. FINDINGS: Remote trauma involving the right clavicle. Diffuse interstitial pattern with bilateral co nsolidation and pleural effusion. Heart enlarged and there is postsurgical changes. Disruption of at least 2 sternotomy wires. Right apical pleural thickening. IMPRESSION: 1. Correlate for CHF versus pneumonia. Findings are similar to the prior exam with the exception of r ight apical pleural thickening. This may representpleural fluid correlate clinically..
[2019-01-17 16:17] LABS: Glucose,Whole Blood 135 mg/dL (75-99)
[2019-01-17] MEDS: HYOSCYAMINE SULFATE 0.375 MG TAB.ER.12H PO SCH ×2 (18:06→20:15)
[2019-01-17] MEDS: amLODIPine 10 MG TAB PO SCH (18:08)
[2019-01-17] MEDS: ISOSORBIDE MONONITRATE ER 30 MG TAB.ER.24H PO SCH (18:08)
[2019-01-17] MEDS: VENLAFAXINE HCL ER 150 MG CAP PO SCH (18:08)
--- NOTE | 2019-01-17 19:46 | PN ---
PROGRESS NOTE DATE OF SERVICE: January 17, 2019. PRESENT COMPLAINT: Short of breath. INTERVAL HISTORY: This patient with chronic kidney disease presented with acute non ST elevation myocardial infarction and acute CHF exacerbation. Today underwent cardiac catheterization. Formal results were not available. The patient had 2 episodes following that of flash pulmonary edema, was given IV Lasix 40 mg x2 on a BiPAP, currently lying in bed, breathing is somewhat better. REVIEW OF SYSTEMS: Done for constitutional, cardiovascular, GI, pulmonary; relevant findings as above. CURRENT MEDICATIONS: Reviewed. EXAMINATION: VITAL SIGNS: Afebrile, pulse 76, respiration 18, blood pressure 128/71, pulse ox 96% on BiPAP. GENERAL APPEARANCE: Lying in bed with a BiPAP in place. EYES: Pupils are equal. Conjunctivae normal. NECK: JVD unable to assess. Mass not palpable. RESPIRATORY: Effort increased. LUNGS: Decreased breath sounds. CARDIOVASCULAR: 1st and 2nd sounds normal. No edema. ABDOMEN: Soft, nontender. Liver and spleen not palpable. PSYCHIATRY: Alert and oriented x3. Mood and affect normal. Patient is hard of hearing. INVESTIGATIONS: White count 9.7, hemoglobin 10.2. Potassium 4.9. BUN 66, creatinine 2.80. ASSESSMENT: 1. Acute non-ST elevation myocardial infarction, POA. 2. Acute congestive heart failure exacerbation from both systolic and diastolic dysfunction, EF 45-50 percent with acute flash pulmonary edema following cardiac catheterization x2 episodes. 3. Severe mitral regurgitation, nonrheumatic. 4. Diabetes mellitus type 2, chronically on insulin. 5. Essential hypertension. 6. Chronic kidney stage 3 from diabetic nephropathy and probably nephrosclerosis. 7. Acute renal failure from diuresis. 8. Chronic obstructive pulmonary disease in an ex-smoker. 9. Anxiety and depression, not otherwise specified. 10.Essential hypertension. 11.Acute hypoxic respiratory failure including that from pulmonary edema and chronic obstructive pulmonary disease, currently on BiPAP. PLAN: Continue current medication and treatment plan including Lasix, BiPAP. Renal functions to be followed closely. Care was discussed with the patient. MMODL / IJN: [id number] /
[2019-01-17] MEDS ORDERED: FUROSEMIDE 10 MG/ML 4 ML VIAL IV ONE (20:00)
[2019-01-17] MEDS: CYANOCOBALAMIN 500 MCG TAB PO SCH (20:15)
[2019-01-17] MEDS: ASPIRIN 81 MG PO SCH (20:15)
[2019-01-17 21:06] LABS: Glucose,Whole Blood 152 mg/dL (75-99)
[2019-01-17] MEDS: INSULIN DETEMIR (LEVEMIR) 100 UNIT/ML SYR SQ SCH (21:06)
--- NOTE | 2019-01-17 23:22 | CC ---
CARDIAC CATHETERIZATION REPORT DATE OF SERVICE: January 17, 2019 PERFORMING PHYSICIAN: Ronnie Capps MD. PROCEDURE PERFORMED: 1. Selective right and left coronary angiogram. 2. Successful stenting of the mid left circumflex using 2.0 x 22 mm Goran drug-eluting stent which was post dilated using 3 mm NC balloon with excellent angiographic results and reduction of stenosis from 99% to 0%. 3. Successful stenting of the proximal left circumflex using 3.0 x 8 mm Xience drug- eluting stent with an excellent angiographic results and reduction of stenosis from 70% to 0%. INDICATION: This is an 88-year-old gentleman with history of aortic valve replacement in the past, as well as multiple risk factors including hypertension, and dyslipidemia, who was admitted to the hospital with shortness of breath and ruled in for acute non ST elevation myocardial infarction. He was in congestive heart failure. He underwent an echocardiogram which revealed impaired LV function with EF between 40%-45% with wall motion abnormalities concerning for severe underlying coronary artery disease. Besides that, he was found to have severe mitral regurgitation. Initially the patient was treated conservatively, but he did not feel better. Because of that, coronary angiogram was advised. APPROACH: Right common femoral artery. COMPLICATION: None. LEVEL OF SEDATION: Moderate. PROCEDURE DESCRIPTION: After obtaining an informed consent, the patient was brought to the cardiac laborer sawmill. The right common femoral artery using micropuncture technique and a micropuncture wire passed easily. Then I placed a 23 cm 6-Romanian sheath in the femoral artery. Subsequently, I did selective right and left coronary angiogram using JR4 and JL4 catheters. After that, I did intervene on the left circumflex. Please see a separate paragraph for that. The procedure was completed without any complication. SELECTIVE CORONARY ANGIOGRAM: 1. The RCA is a moderate caliber vessel and nondominant vessel. The RCA has a tight lesion in the midportion appeared to be in the range of 80%. 2. The left main is a calcified left main and appeared to have mild disease only. The left main bifurcates into left circumflex. 3. The left circumflex is a large caliber vessel and it is a dominant vessel. The proximal left circumflex right after the takeoff from the left main has tubular lesion appeared to be in the range of 70%. After that, it gives rise into a large OM branch which has mild disease only. The left circumflex after OM1 has a tight lesion appeared to be in the range of 99.9%. Distally appeared to have mild to moderate diffuse disease and bifurcates into PDA and PLV branches. 4. The left anterior descending artery: The left anterior descending artery is a large caliber vessel with mild to moderate diffuse disease. Proximally gives rise into the first diagonal branch which worked as ramus intermedius, which has diffuse disease as well. PCI OF THE LEFT CIRCUMFLEX: Anticoagulation was initiated using Angiomax. Subsequently I did engage the left main using JL4 guide. I did wired using a whisper wire. The wire was advanced to the distal left circumflex and was placed in the PDA branch of the left circumflex. After that I did balloon angioplasty using 2.5 x 12 mm balloon and I did balloon angioplasty of the proximal as well as mid left circumflex. Subsequently I tried advancing 3 0 x 23 mm Xience drug-eluting stent but the stent will not make the turn from the left main to the circumflex. At that point, I tried using a GuideLiner, but even in spite of using the GuideLiner, I was able to get the stent to the left circumflex. Subsequently I did predilatation again of the left circumflex, but at this point, using 3.0 mm NC balloon. Again I did angioplasty of the proximal as well as mid left circumflex. In spite of the predilatation using the 3.0 x 12 mm balloon, I was unable to advance the stent to the circumflex. After that, I decided to wire the left circumflex using a anthony wire which was a run-through wire. The run-through wire was advanced to the distal left circumflex again by the PDA branch of the LCX. At that point, I tried advancing the Xience 3.0 x 23 mm, but the stent will not make the turn from the left main to the left circumflex. At that point, I decided to use the [place] stent. I did use 2 0 x 22 mm Goran and I was able to get the stent to the mid left circumflex where the stent was positioned under fluoroscopy guidance and deployed under 18 atmospheres for 20 seconds. I post-dilated the stent using the 3 mm NC balloon. The following angiogram showed excellent angiographic results in the mid left circumflex but for the proximal circumflex, there was a haziness concerning for each dissection of the stent. Because of that, I decided to cover that with a stent. I deployed 3.0 8 mm Xience where the stent again was positioned under fluoroscopy guidance and deployed under 14 atmospheres for 20 seconds. The following angiogram showed excellent angiographic results and at that point, the procedure was completed without any complication. CONCLUSION: 1. Acute non ST elevation myocardial infarction complicated by cardiomyopathy as well as congestive heart failure, as well as severe mitral regurgitation. 2. Calcified right and left coronary systems. 3. Critical disease involving the mid left circumflex which is a dominant circumflex and severe disease involving the proximal left circumflex. 4. Mild disease involving the left anterior descending artery. 5. Successful stenting of the mid and distal left circumflex using 2 drug-eluting stents with an excellent angiographic results and without any complication. POSTPROCEDURE MANAGEMENT: 1. Dual anti-platelet therapy. 2. Risk factor modification. 3. Follow up with the patient. MMMIGUEL ANGELL / IJN: [id number] /
[2019-01-18] MEDS: hydrALAZINE HCL 50 MG TAB PO SCH ×3 (06:30→21:16)
[2019-01-18] MEDS: CARVEDILOL 6.25 MG TAB PO SCH ×2 (06:30→17:19)
[2019-01-18 06:33] LABS: Glucose,Whole Blood 98 mg/dL (75-99)
[2019-01-18] MEDS: INSULIN ASPART (NovoLOG) 100 UNIT/ML VIAL SQ SCH ×3 (07:15→17:19)
[2019-01-18 07:59] LABS: Basophils % (A) 0 %; Eosinophils # (A) 0.5 k/uL (0-0.7); Eosinophils % (A) 5 %; HCT 30.6 % (39.0-53.0); HGB 9.7 gm/dL (13.0-17.5); Lymphocytes # (A) 0.7 k/uL (1.0-4.8); Lymphocytes % (A) 7 %; MCHC 31.8 g/dL (31.0-37.0); MCV 103.8 fL (80.0-100.0); Macrocytosis Slight; Mean Platelet Volume 8.6; Monocytes # (A) 0.7 k/uL (0-1.0); Monocytes % (A) 7 %; Neutrophils # (A) 7.5 k/uL (1.3-7.7); Neutrophils % (A) 79 %; Platelet Count 280 k/uL (150-450); RBC 2.95 m/uL (4.30-5.90); WBC 9.4 k/uL (3.8-10.6)
[2019-01-18] MEDS: IPRATROPIUM-ALBUTEROL 3 ML NEB INHALATION SCH ×4 (08:02→20:13)
[2019-01-18 08:10] LABS: Calcium 8.9 mg/dL (8.4-10.2); Magnesium 2.4 mg/dL (1.6-2.3)
--- NOTE | 2019-01-18 09:03 | PN ---
PROGRESS NOTE Mr. Allison is an 88-year-old male who has a history of aortic valve replacement, presented with symptoms of progressive dyspnea, acute coronary syndrome as well as recurrent episode of pulmonary edema. He underwent cardiac catheterization yesterday by Dr. Capps and was found to have critical stenosis in the left circumflex. His EMPERATRIZ showed normal function of his aortic valve bioprosthesis with evidence of severe mitral regurgitation, ejection fraction of about 40%. He underwent stenting of the left circumflex. Upon his return, he had an episode of dyspnea. This subsequently resolved. He is feeling quite well this morning. His breathing is stable. He is denying any symptoms of chest pain. He denies any dizziness or palpitation. He continued be on amlodipine 10 mg daily, aspirin once a day, Lipitor 40 mg daily, Coreg 6.25 mg twice a day, Plavix 75 mg daily, Lasix 40 mg daily, hydralazine 50 mg q.8 hours, insulin, isosorbide mononitrate 30 mg daily. PHYSICAL EXAMINATION: Blood pressure 135/60 with the heart rate in the 60s. LUNGS: Clear. HEART: Irregular, irregular. S1, S2. No S3 with systolic murmur. No diastolic murmur. No rub. ABDOMEN: Soft, nontender. RIGHT GROIN: No hematoma. LAB DATA: Lab data revealed a BUN and creatinine 70 and 2.75, which are stable compared to yesterday. Potassium of 5.0. Hemoglobin of 9.7. IMPRESSION: 1. Status post stenting of the left circumflex. 2. Recurrent episode of pulmonary edema with severe mitral regurgitation that could be ischemic mitral regurgitation. 3. Status post aortic valve replacement. 4. Chronic kidney disease. 5. Atrial fibrillation. 6. History of hypertension. 7. Diabetes. 8. Hypertension. RECOMMENDATION: Patient will continue present therapy. Will repeat his renal functions tomorrow. If they remain stable, I would expect he should be able to be discharged home. Decision will need to be made regarding the issue of anticoagulation. At his age group with the triple anticoagulation the risk is quite high. He can be re-evaluated as an outpatient and drop the aspirin and initiate anticoagulation at that time. MMODL / IJN: [id number] /
[2019-01-18] MEDS: FUROSEMIDE 40 MG TAB PO SCH (09:32)
[2019-01-18] MEDS: ATORVASTATIN 40 MG TAB PO SCH (09:32)
[2019-01-18] MEDS: CLOPIDOGREL 75 MG TAB PO SCH (09:32)
[2019-01-18] MEDS: ISOSORBIDE MONONITRATE ER 30 MG TAB.ER.24H PO SCH (09:32)
[2019-01-18] MEDS: amLODIPine 10 MG TAB PO SCH (09:32)
[2019-01-18] MEDS: LACTOBACILLUS ACIDOPH & BULGAR 1 EACH PACKET PO SCH (09:33)
[2019-01-18] MEDS: HYOSCYAMINE SULFATE 0.375 MG TAB.ER.12H PO SCH ×2 (09:34→21:15)
[2019-01-18] MEDS: VENLAFAXINE HCL ER 150 MG CAP PO SCH (09:34)
[2019-01-18 11:59] LABS: Glucose,Whole Blood 109 mg/dL (75-99)
--- NOTE | 2019-01-18 13:54 | P.PN ---
Subjective Patient is seen in follow-up for acute kidney injury on chronic kidney disease. Patient has chronic kidney disease stage IV with baseline creatinine in the range of 1.9-2.2 secondary to nephrosclerosis. Creatinine today is stable at 2.75. Patient underwent a EMPERATRIZ and cardiac catheterization with 2 stents placed to the circumflex on January 17. She and has systolic CHF with ejection fraction of 40% with severe mitral regurgitation. Dyspnea is improved. He is maintained on oral diuretics. Vital signs are stable. General: The patient appeared well nourished and normally developed. HEENT: Head exam is unremarkable. Neck is without jugular venous distension. LUNGS: Breath sounds decreased. HEART: Rate and Rhythm are regular. First and second heart sounds normal. No murmurs, rubs or gallops. ABDOMEN: Abdominal exam reveals normal bowel sounds. Non-tender and non- distended. No evidence of peritonitis. EXTREMITITES: No clubbing, cyanosis, or edema. Objective - Vital Signs Vital signs: Vital Signs Temp 97.1 F L 01/18/19 09:10 Pulse 72 01/18/19 11:59 Resp 18 01/18/19 11:50 BP 142/64 01/18/19 11:50 Pulse Ox 95 01/18/19 11:54 Intake & Output 01/17/19 01/18/19 01/18/19 18:59 06:59 18:59 Intake Total 534 976 Output Total 2125 700 400 Balance -1591 -700 576 Weight 89.5 kg Intake: IV 414 Oral 120 976 Output: Urine 2125 700 Stool 400 Other: Voiding Method Indwelling Catheter Indwelling Catheter Indwelling Catheter - Labs CBC & Chem 7: 01/18/19 07:18 01/18/19 07:18 Labs: Abnormal Lab Results - Last 24 Hours (Table) 01/17/19 01/17/19 01/18/19 Range/Units 16:16 21:06 07:18 RBC 2.95 L (4.30-5.90) m/uL Hgb 9.7 L (13.0-17.5) gm/dL Hct 30.6 L (39.0-53.0) % MCV 103.8 H (80.0-100.0) fL Lymphocytes # 0.7 L (1.0-4.8) k/uL Chloride (98-107) mmol/L BUN (9-20) mg/dL Creatinine (0.66-1.25) mg/dL POC Glucose (mg/dL) 135 H 152 H (75-99) mg/dL Magnesium (1.6-2.3) mg/dL 01/18/19 01/18/19 Range/Units 07:18 11:46 RBC (4.30-5.90) m/uL Hgb (13.0-17.5) gm/dL Hct (39.0-53.0) % MCV (80.0-100.0) fL Lymphocytes # (1.0-4.8) k/uL Chloride 108 H (98-107) mmol/L BUN 70 H (9-20) mg/dL Creatinine 2.75 H (0.66-1.25) mg/dL POC Glucose (mg/dL) 109 H (75-99) mg/dL Magnesium 2.4 H (1.6-2.3) mg/dL Assessment and Plan Plan: Assessment: 1. Acute kidney injury mostly prerenal secondary to cardiorenal syndrome. Renal function stable. Creatinine 2.75 today. 2. 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 3. Systolic CHF with ejection fraction of 40% with severe mitral regurgitation. 4. Dyspnea secondary to volume overload. 5. Coronary artery disease status post cardiac catheterization with 2 stents placed to the circumflex on January 17. 6. Hypertension with chronic kidney disease. Controlled. 7. Insulin-dependent diabetes mellitus. Plan: Maintain Lasix 40 mg orally once daily. Avoid nephrotoxins. Continue to monitor renal function and urine output.
[2019-01-18 16:54] LABS: Glucose,Whole Blood 158 mg/dL (75-99)
[2019-01-18 20:45] LABS: Glucose,Whole Blood 193 mg/dL (75-99)
[2019-01-18] MEDS: INSULIN DETEMIR (LEVEMIR) 100 UNIT/ML SYR SQ SCH (21:14)
[2019-01-18] MEDS: ASPIRIN 81 MG PO SCH (21:14)
[2019-01-18] MEDS: CYANOCOBALAMIN 500 MCG TAB PO SCH (21:14)
--- NOTE | 2019-01-18 21:41 | PN ---
PROGRESS NOTE DATE OF SERVICE: January 18, 2019 PRESENTING COMPLAINT: Tired. INTERVAL HISTORY: The patient has chronic kidney disease, presented with acute non-ST elevation myocardial infarction and acute CHF exacerbation. Underwent a cardiac catheterization on January 17, 2019. Following that, he had 2 episodes of flash pulmonary edema. Responded well to IV Lasix. Feeling better today. Sitting up. Did tolerate a diet. REVIEW OF SYSTEMS: Done for constitutional, cardiovascular, GI, pulmonary; relevant findings as above. CURRENT MEDICATIONS: Reviewed that include p.o. Lasix. PHYSICAL EXAMINATION: VITAL SIGNS: Temperature 97.1, pulse 75, respiratory 18, blood pressure 142/64, pulse ox 95% on 3 L. GENERAL APPEARANCE: Propped up in chair. Looking better. EYES: Pupils equal. Conjunctivae normal. NECK: JVD unable to assess. Mass not palpable. RESPIRATORY: Effort increased. LUNGS: Decreased breath sounds. CARDIOVASCULAR: 1st and 2nd sounds normal. No edema. ABDOMEN: Soft, nontender. Liver and spleen not palpable. PSYCHIATRY: Awake, answering questions. INVESTIGATIONS: White count 9.4, hemoglobin 9.7, potassium 5.0, BUN 17, creatinine 2.75. ASSESSMENT: 1. Acute non-ST elevation myocardial infarction, POA. 2. Acute congestive heart failure exacerbation from both systolic and diastolic dysfunction, EF 45-50 percent with repeated episodes of flash pulmonary edema following cardiac catheterization, now more stabilized. 3. Severe mitral regurgitation, nonrheumatic. 4. Diabetes mellitus type 2, chronically on insulin. 5. Essential hypertension. 6. Chronic kidney disease stage 3 from diabetic nephropathy and probably nephrosclerosis. 7. Acute renal failure from diuresis. 8. Chronic obstructive pulmonary disease in an ex-smoker. 9. Anxiety, depression not otherwise specified. 10.Essential hypertension. 11.Acute hypoxic respiratory failure including that from pulmonary edema and chronic obstructive pulmonary disease status post BiPAP, currently on nasal . PLAN: Overall patient is improving. We will see how the patient does. If stabilized, probably home in next 24 to 48 hours. The patient has good support at home. MMODL / IJN: [id number] /
[2019-01-19 05:37] LABS: Glucose,Whole Blood 88 mg/dL (75-99)
[2019-01-19] MEDS: INSULIN ASPART (NovoLOG) 100 UNIT/ML VIAL SQ SCH ×3 (05:46→17:42)
[2019-01-19] MEDS: hydrALAZINE HCL 50 MG TAB PO SCH ×3 (06:20→20:35)
[2019-01-19] MEDS: CARVEDILOL 6.25 MG TAB PO SCH ×2 (06:20→16:18)
[2019-01-19 06:54] LABS: Calcium 8.6 mg/dL (8.4-10.2); Magnesium 2.5 mg/dL (1.6-2.3); Potassium 4.7 mmol/L (3.5-5.1)
[2019-01-19] MEDS: IPRATROPIUM-ALBUTEROL 3 ML NEB INHALATION SCH ×4 (08:40→19:25)
[2019-01-19] MEDS: LACTOBACILLUS ACIDOPH & BULGAR 1 EACH PACKET PO SCH (08:57)
[2019-01-19] MEDS: FUROSEMIDE 40 MG TAB PO SCH (08:57)
[2019-01-19] MEDS: amLODIPine 10 MG TAB PO SCH (08:57)
[2019-01-19] MEDS: CLOPIDOGREL 75 MG TAB PO SCH (08:57)
[2019-01-19] MEDS: ATORVASTATIN 40 MG TAB PO SCH (08:57)
[2019-01-19] MEDS: ISOSORBIDE MONONITRATE ER 30 MG TAB.ER.24H PO SCH (08:57)
[2019-01-19] MEDS: HYOSCYAMINE SULFATE 0.375 MG TAB.ER.12H PO SCH ×2 (08:58→20:54)
[2019-01-19] MEDS: VENLAFAXINE HCL ER 150 MG CAP PO SCH (08:58)
--- NOTE | 2019-01-19 11:14 | P.PN ---
Subjective Patient is seen in follow-up for acute kidney injury on chronic kidney disease. Patient has chronic kidney disease stage IV with baseline creatinine in the range of 1.9-2.2 secondary to nephrosclerosis. Renal function is little worse today with creatinine at 2.97. Patient underwent a EMPERATRIZ and cardiac catheterization with 2 stents placed to the circumflex on January 17. She and has systolic CHF with ejection fraction of 40% with severe mitral regurgitation. Dyspnea is improved. He is maintained on oral diuretics. Urine output has been good. Vital signs are stable. General: The patient appeared well nourished and normally developed. HEENT: Head exam is unremarkable. Neck is without jugular venous distension. LUNGS: Breath sounds decreased. HEART: Rate and Rhythm are regular. First and second heart sounds normal. No murmurs, rubs or gallops. ABDOMEN: Abdominal exam reveals normal bowel sounds. Non-tender and non- distended. No evidence of peritonitis. EXTREMITITES: No clubbing, cyanosis, or edema. Objective - Vital Signs Vital signs: Vital Signs Temp 98.1 F 01/19/19 08:00 Pulse 74 01/19/19 08:56 Resp 20 01/19/19 08:00 BP 140/79 01/19/19 08:00 Pulse Ox 90 L 01/19/19 08:00 Intake & Output 01/18/19 01/19/19 01/19/19 18:59 06:59 18:59 Intake Total 976 240 Output Total 900 0 500 Balance 76 240 -500 Weight 89.4 kg Intake: Oral 976 240 Output: Urine 500 0 500 Stool 400 Other: Voiding Method Indwelling Catheter Indwelling Catheter Indwelling Catheter # Voids 0 - Labs CBC & Chem 7: 01/18/19 07:18 01/19/19 06:22 Labs: Abnormal Lab Results - Last 24 Hours (Table) 01/18/19 01/18/19 01/18/19 Range/Units 11:46 16:43 20:43 Chloride (98-107) mmol/L BUN (9-20) mg/dL Creatinine (0.66-1.25) mg/dL Glucose (74-99) mg/dL POC Glucose (mg/dL) 109 H 158 H 193 H (75-99) mg/dL Magnesium (1.6-2.3) mg/dL 01/19/19 Range/Units 06:22 Chloride 108 H (98-107) mmol/L BUN 74 H (9-20) mg/dL Creatinine 2.97 H (0.66-1.25) mg/dL Glucose 58 L (74-99) mg/dL POC Glucose (mg/dL) (75-99) mg/dL Magnesium 2.5 H (1.6-2.3) mg/dL Assessment and Plan Plan: Assessment: 1. Acute kidney injury mostly prerenal secondary to cardiorenal syndrome. Renal function a little worse which is from contrast-induced nephropathy. Creatinine 2.97 today. 2. 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 3. Systolic CHF with ejection fraction of 40% with severe mitral regurgitation. 4. Dyspnea secondary to volume overload. Better. 5. Coronary artery disease status post cardiac catheterization with 2 stents placed to the circumflex on January 17. 6. Hypertension with chronic kidney disease. Controlled. 7. Insulin-dependent diabetes mellitus. Plan: Maintain Lasix 40 mg orally once daily. Avoid nephrotoxins. Continue to monitor renal function and urine output.
--- NOTE | 2019-01-19 11:18 | PN ---
PROGRESS NOTE Mr. Allison is an 88-year-old male with a history of coronary disease, underwent stenting of the left circumflex. He is feeling well today. Ambulating without difficulty. Denying any chest pain. His breathing is stable. He denies any dizziness or palpitations. He denies any nausea. He continues to be on amlodipine 10 mg daily, aspirin once a day, Lipitor 40 mg daily, Coreg 6.5 mg twice a day, Plavix 75 mg daily, Lasix 40 mg daily, hydralazine 50 mg 3 times a day, insulin, isosorbide mononitrate 30 mg daily. PHYSICAL EXAMINATION: Blood pressure 140/70 with a heart rate in the 70s. LUNGS: Clear. HEART: Regular rate and rhythm, S1, S2. No S3. No rub with a systolic murmur. ABDOMEN: Soft and nontender. EXTREMITIES: No edema. LAB DATA: Lab data revealed BUN and creatinine 74 and 2.97, potassium 4.7. IMPRESSION: 1. Status post stenting of the left circumflex. 2. Chronic kidney disease. 3. Hypertension. 4. Hyperlipidemia. RECOMMENDATION: From the cardiac standpoint, he is stable. His renal function is slightly worse, that can be followed as an outpatient. I would expect he may be able to be discharged home soon and followed as an outpatient with Dr. Capps. MMELIZA / VIRGINIAN: [id number] /
[2019-01-19 11:55] LABS: Glucose,Whole Blood 240 mg/dL (75-99)
[2019-01-19] MEDS: CALCITRIOL 0.25 MCG CAP PO SCH (12:24)
--- NOTE | 2019-01-19 14:33 | PN ---
PROGRESS NOTE DATE OF SERVICE: January 19, 2019. PRESENTING COMPLAINT: Tired. INTERVAL HISTORY: Patient has chronic kidney disease presented with acute ST segment elevation myocardial infarction with acute CHF exacerbation, status post cardiac cath with stent on January 17, 2019. Patient responded well to postprocedure flash pulmonary edema with IV Lasix. On nasal cannula. Doing better. Did tolerate a diet. Renal functions closely being watched. Daughter at the bedside. Breathing is stable. REVIEW OF SYSTEMS: Done for constitutional, cardiovascular, GI, pulmonary and relevant findings as above. CURRENT MEDICATIONS: Reviewed that include Lasix 40 mg p.o. daily. PHYSICAL EXAMINATION: VITAL SIGNS: Temperature 97.3, pulse 75, respiration 20, blood pressure 141/60, pulse ox 91 percent on 3 L. GENERAL APPEARANCE: Lying in the recliner, watching television. EYES: Pupils equal. Conjunctivae normal. NECK: JVD unable to assess. Mass not palpable. RESPIRATORY: Effort increased. LUNGS: Decreased breath sounds. CARDIOVASCULAR: 1st and 2nd sounds normal. No edema. ABDOMEN: Soft, nontender. Liver and spleen not palpable. PSYCHIATRY: Alert and oriented times three. Mood and affect normal. INVESTIGATIONS: BUN 74, creatinine 2.97. ASSESSMENT: 1. Acute non-ST elevation myocardial infarction, POA. 2. Acute congestive heart failure exacerbation from both systolic and diastolic dysfunction, EF 45-50 percent with repeat episodes of flash pulmonary edema following cardiac catheterization, now improving. 3. Severe mitral regurgitation, nonrheumatic. 4. Diabetes mellitus type 2, chronically on insulin. 5. Essential hypertension. 6. Chronic kidney disease stage 3 from diabetic nephropathy and probably nephrosclerosis. 7. Acute renal failure from diuresis, slow to respond. 8. Chronic obstructive pulmonary disease in an ex-smoker. 9. Anxiety and depression, not otherwise specified. 10.Essential hypertension. 11.Acute hypoxic respiratory failure including pulmonary edema and chronic obstructive pulmonary disease, status post BiPAP, currently on nasal cannula. PLAN: Discussed with Dr. Cornejo. We will keep a close eye on renal function. Creatinine is still climbing up slowly. There may be a contrast induced component. We will follow the renal function closely. Care was discussed with the patient and at the bedside. Follow. MMODL / IJN: [id number] /
[2019-01-19] MEDS: LACTULOSE 20 GM/30 ML CUP PO SCH ×2 (16:18→20:28)
[2019-01-19 17:00] LABS: Glucose,Whole Blood 161 mg/dL (75-99)
[2019-01-19] MEDS: INSULIN DETEMIR (LEVEMIR) 100 UNIT/ML SYR SQ SCH (20:35)
[2019-01-19] MEDS: ASPIRIN 81 MG PO SCH (20:35)
[2019-01-19] MEDS: CYANOCOBALAMIN 500 MCG TAB PO SCH (20:35)
[2019-01-19 21:00] LABS: Glucose,Whole Blood 189 mg/dL (75-99)
[2019-01-20 06:35] LABS: Glucose,Whole Blood 105 mg/dL (75-99)
[2019-01-20] MEDS: hydrALAZINE HCL 50 MG TAB PO SCH ×3 (06:37→21:31)
[2019-01-20] MEDS: INSULIN ASPART (NovoLOG) 100 UNIT/ML VIAL SQ SCH ×3 (06:38→17:03)
[2019-01-20] MEDS: CARVEDILOL 6.25 MG TAB PO SCH ×2 (06:38→17:03)
[2019-01-20 07:32] LABS: Calcium 8.6 mg/dL (8.4-10.2); Magnesium 2.6 mg/dL (1.6-2.3); Potassium 4.8 mmol/L (3.5-5.1)
[2019-01-20] MEDS: IPRATROPIUM-ALBUTEROL 3 ML NEB INHALATION SCH ×4 (08:03→21:23)
[2019-01-20] MEDS: FUROSEMIDE 40 MG TAB PO SCH (08:19)
[2019-01-20] MEDS: ISOSORBIDE MONONITRATE ER 30 MG TAB.ER.24H PO SCH (08:19)
[2019-01-20] MEDS: amLODIPine 10 MG TAB PO SCH (08:19)
[2019-01-20] MEDS: ATORVASTATIN 40 MG TAB PO SCH (08:19)
[2019-01-20] MEDS: LACTOBACILLUS ACIDOPH & BULGAR 1 EACH PACKET PO SCH (08:19)
[2019-01-20] MEDS: CLOPIDOGREL 75 MG TAB PO SCH (08:19)
[2019-01-20] MEDS: LACTULOSE 20 GM/30 ML CUP PO SCH ×3 (08:19→21:30)
[2019-01-20] MEDS: VENLAFAXINE HCL ER 150 MG CAP PO SCH (08:20)
[2019-01-20] MEDS: HYOSCYAMINE SULFATE 0.375 MG TAB.ER.12H PO SCH ×2 (08:20→21:30)
--- NOTE | 2019-01-20 10:04 | P.PN ---
Subjective Patient is seen in follow-up for acute kidney injury on chronic kidney disease. Patient has chronic kidney disease stage IV with baseline creatinine in the range of 1.9-2.2 secondary to nephrosclerosis. Renal function is slightly improved. Patient underwent a EMPERATRIZ and cardiac catheterization with 2 stents placed to the circumflex on January 17. She and has systolic CHF with ejection fraction of 40% with severe mitral regurgitation. Dyspnea is stable. He is maintained on oral diuretics. Urine output has been good. Vital signs are stable. General: The patient appeared well nourished and normally developed. HEENT: Head exam is unremarkable. Neck is without jugular venous distension. LUNGS: Breath sounds decreased. HEART: Rate and Rhythm are regular. First and second heart sounds normal. No murmurs, rubs or gallops. ABDOMEN: Abdominal exam reveals normal bowel sounds. Non-tender and non- distended. No evidence of peritonitis. EXTREMITITES: No clubbing, cyanosis, or edema. Objective - Vital Signs Vital signs: Vital Signs Temp 98.1 F 01/20/19 08:00 Pulse 70 01/20/19 08:17 Resp 20 01/20/19 08:00 BP 131/61 01/20/19 08:00 Pulse Ox 93 L 01/20/19 08:06 Intake & Output 01/19/19 01/20/19 01/20/19 18:59 06:59 18:59 Intake Total 120 Output Total 800 1000 Balance -680 -1000 Weight 90.2 kg Intake: Oral 120 Output: Urine 800 600 Stool 400 Other: Voiding Method Urinal Urinal - Labs CBC & Chem 7: 01/18/19 07:18 01/20/19 06:17 Labs: Abnormal Lab Results - Last 24 Hours (Table) 01/19/19 01/19/19 01/19/19 Range/Units 11:54 16:51 20:33 Chloride (98-107) mmol/L BUN (9-20) mg/dL Creatinine (0.66-1.25) mg/dL POC Glucose (mg/dL) 240 H 161 H 189 H (75-99) mg/dL Magnesium (1.6-2.3) mg/dL 01/20/19 01/20/19 Range/Units 06:17 06:34 Chloride 110 H (98-107) mmol/L BUN 69 H (9-20) mg/dL Creatinine 2.79 H (0.66-1.25) mg/dL POC Glucose (mg/dL) 105 H (75-99) mg/dL Magnesium 2.6 H (1.6-2.3) mg/dL Assessment and Plan Plan: Assessment: 1. Acute kidney injury mostly prerenal secondary to cardiorenal syndrome. Renal function a little improved. Creatinine 2.79 today. 2. 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 3. Systolic CHF with ejection fraction of 40% with severe mitral regurgitation. 4. Dyspnea secondary to volume overload. Better. 5. Coronary artery disease status post cardiac catheterization with 2 stents placed to the circumflex on January 17. 6. Hypertension with chronic kidney disease. Controlled. 7. Insulin-dependent diabetes mellitus. Plan: Maintain Lasix 40 mg orally once daily. Avoid nephrotoxins. Continue to monitor renal function and urine output. Check chest x-ray.
--- NOTE | 2019-01-20 10:44 | PN ---
PROGRESS NOTE Mr. Allison is an 88-year-old male who presented with symptoms of progressive dyspnea with recurrent episode of pulmonary edema, underwent cardiac catheterization and stenting of the left circumflex by Dr. Capps. He is status post aortic valve replacement and was found to have significant mitral regurgitation. He had an episode of dyspnea earlier but no chest pain. He has not been ambulating. He denies any symptoms of dizziness. No palpitation. He denies any nausea. He continues to be at this time on amlodipine 10 mg daily, aspirin 81 mg daily, carvedilol 6.25 mg twice a day, Plavix 75 mg daily, furosemide 40 mg daily, hydralazine 50 mg q.8 hours, isosorbide mononitrate 30 mg daily. PHYSICAL EXAMINATION: Blood pressure 131/60 with a heart rate in 60s. LUNGS: No wheezes or rales. HEART: S1-S2. No S3 with systolic ejection murmur heard at the base and a holosystolic murmur in the apex. ABDOMEN: Soft, nontender. Positive bowel sounds. EXTREMITIES: No edema. HEART: Irregularly irregular. IMPRESSION: 1. Status post stenting of the left circumflex. 2. Recurrent episode of pulmonary edema. 3. Chronic kidney disease. 4. Mitral regurgitation. 5. Hypertension. 6. Hyperlipidemia. 7. Atrial fibrillation. RECOMMENDATION: We will continue present therapy. His renal function today showed a BUN and creatinine of 69 and 2.79. We will follow his renal function tomorrow. Continue present dose of diuretic, increase his level of activity gradually and depending on his progress, further recommendations will be made. The prognosis remains guarded. I have discussed those findings with the patient and his daughter. MMODL / IJN: [id number] /
--- NOTE | 2019-01-20 11:33 | XR ---
EXAMINATION TYPE: XR chest 1V portable DATE OF EXAM: 01/20/2019 HISTORY: dyspnea. REFERENCE: Previous study dated 01/17/2019. FINDINGS: The heart is enlarged. There is vascular congestion and pulmonary edema. There are bilatera l effusions. IMPRESSION: CONTINUING CHANGES OF CONGESTIVE HEART FAILURE.
[2019-01-20] MEDS: clonazePAM 0.5 MG TAB PO PRN ×2 (11:36→21:25)
[2019-01-20 11:58] LABS: Glucose,Whole Blood 124 mg/dL (75-99)
[2019-01-20 17:09] LABS: Glucose,Whole Blood 232 mg/dL (75-99)
[2019-01-20 20:37] LABS: Glucose,Whole Blood 187 mg/dL (75-99)
[2019-01-20] MEDS: CYANOCOBALAMIN 500 MCG TAB PO SCH (21:25)
[2019-01-20] MEDS: ASPIRIN 81 MG PO SCH (21:25)
[2019-01-20] MEDS: INSULIN DETEMIR (LEVEMIR) 100 UNIT/ML SYR SQ SCH (21:30)
--- NOTE | 2019-01-20 22:11 | PN ---
PROGRESS NOTE DATE OF SERVICE: January 20, 2019. PRESENTING COMPLAINT: Short of breath. INTERVAL HISTORY: This patient has chronic kidney disease, presented with acute ST-elevation myocardial infarction, acute CHF exacerbation, status post cardiac cath with stent on January 17, also had postprocedure flash pulmonary edema. The patient is still requiring about 4 L of oxygen. None so prior to coming in. Chest x-ray from today showing pulmonary edema. Otherwise, tolerating a diet. REVIEW OF SYSTEMS: Done for constitutional, cardiovascular, GI, pulmonary; relevant findings as above. CURRENT MEDICATIONS: Reviewed that include Lasix 40 mg p.o. daily. PHYSICAL EXAMINATION: VITAL SIGNS: Temperature 97.5, pulse 83, respiratory rate 20, blood pressure 133/60, pulse ox 98% on 4 L. GENERAL APPEARANCE: Lying in the recliner. Slightly short of breath. EYES: Pupils are equal. Conjunctivae normal. NECK: JVD unable to assess. Mass not palpable. RESPIRATORY: Effort increased. LUNGS: Decreased breath sounds. Some crackles. CARDIOVASCULAR: First and second sounds normal. Minimal edema. ABDOMEN: Soft, nontender. Liver and spleen not palpable. PSYCHIATRY: Awake, answering questions. INVESTIGATIONS: Chest x-ray film personally reviewed by me shows pulmonary edema and some pleural effusion. Potassium 4.8, BUN 69, creatinine 2.79. ASSESSMENT: 1. Elevation myocardial infarction, POA. 2. Acute congestive heart failure exacerbation from both systolic and diastolic dysfunction, EF 40-45 percent with repeat episodes of pulmonary edema following cardiac catheterization still significant, present on the chest x-ray. 3. Severe mitral regurgitation, nonrheumatic. 4. Diabetes mellitus type 2, chronically on insulin. 5. Essential hypertension. 6. 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 7. Acute renal failure from diuresis. 8. Chronic obstructive pulmonary disease in an ex-smoker. 9. Anxiety and depression, not otherwise specified. 10.Essential hypertension. 11.Acute hypoxic respiratory failure including pulmonary edema and chronic obstructive pulmonary disease. PLAN: The patient is slowly improving, but patient has significant fluid on the chest x-ray. Still requiring 4 L of oxygen with pulse ox borderline about 90%. Will give one dose of Lasix 80 mg in the morning. MMODL / IJN: [id number] /
[2019-01-21] MEDS ORDERED: FUROSEMIDE 10 MG/ML 10 ML VIAL IV SCH (06:00)
[2019-01-21 06:53] LABS: Magnesium 2.5 mg/dL (1.6-2.3)
[2019-01-21 07:03] LABS: Glucose,Whole Blood 71 mg/dL (75-99)
[2019-01-21] MEDS: CARVEDILOL 6.25 MG TAB PO SCH ×2 (07:07→16:48)
[2019-01-21] MEDS: hydrALAZINE HCL 50 MG TAB PO SCH ×2 (07:07→16:48)
[2019-01-21] MEDS: INSULIN ASPART (NovoLOG) 100 UNIT/ML VIAL SQ SCH ×3 (07:16→16:48)
[2019-01-21] MEDS: LACTOBACILLUS ACIDOPH & BULGAR 1 EACH PACKET PO SCH (08:06)
[2019-01-21] MEDS: HYOSCYAMINE SULFATE 0.375 MG TAB.ER.12H PO SCH ×2 (08:06→19:58)
[2019-01-21] MEDS: amLODIPine 10 MG TAB PO SCH (08:06)
[2019-01-21] MEDS: ATORVASTATIN 40 MG TAB PO SCH (08:06)
[2019-01-21] MEDS: VENLAFAXINE HCL ER 150 MG CAP PO SCH (08:07)
[2019-01-21] MEDS: LACTULOSE 20 GM/30 ML CUP PO SCH ×3 (08:07→22:09)
[2019-01-21] MEDS: CLOPIDOGREL 75 MG TAB PO SCH (08:07)
[2019-01-21] MEDS: ISOSORBIDE MONONITRATE ER 30 MG TAB.ER.24H PO SCH (08:07)
[2019-01-21] MEDS: FUROSEMIDE 40 MG TAB PO SCH (08:07)
[2019-01-21] MEDS: clonazePAM 0.5 MG TAB PO PRN (08:17)
[2019-01-21] MEDS ORDERED: RX INFO: IV CONTRAST WAS GIVEN 1 EACH MISC MISCELLANE PRN (08:29)
[2019-01-21] MEDS ORDERED: SODIUM CHLORIDE 0.9% 1,000 ML IV SCH (08:30)
[2019-01-21] MEDS: IPRATROPIUM-ALBUTEROL 3 ML NEB INHALATION SCH ×4 (08:32→20:18)
[2019-01-21] MEDS ORDERED: hydrALAZINE HCL 50 MG TAB PO SCH (10:00)
--- NOTE | 2019-01-21 10:14 | PN ---
PROGRESS NOTE Mr. Allison is an 88-year-old male with history of aortic valve replacement, who presented with recurrent episode of dyspnea and pulmonary edema, underwent cardiac catheterization and underwent stenting of his left circumflex. He is in atrial fibrillation with controlled ventricular response. He continued to be dyspneic although not as severe as when he came into the hospital. He has not been ambulating. He has no symptoms of peripheral edema. No chest pain. No dizziness or palpitation. He continues on aspirin once a day, Plavix 75 mg daily, Lipitor 40 mg daily, Coreg 6.25 mg twice a day, furosemide 40 mg daily, hydralazine 50 mg 3 times a day, isosorbide mononitrate 30 mg daily. PHYSICAL EXAMINATION: Blood pressure 150/70 with the heart rate in the 80s. LUNGS: No rales. HEART: Irregular, irregular. S1, S2. No S3 with a holosystolic murmur in the apex. No diastolic murmur. ABDOMEN: Soft, nontender. No organomegaly. EXTREMITIES: No edema. LAB DATA: Lab data revealed BUN and creatinine 59 and 2.53, which have improved compared with yesterday. Potassium of 5. IMPRESSION: 1. Status post stenting of left circumflex. 2. Recurrent episode of pulmonary edema, improving. 3. Hypertension. 4. Atrial fibrillation. 5. Hyperlipidemia. 6. Chronic kidney disease. RECOMMENDATION: I will stop the aspirin and start on Eliquis 2.5 mg twice a day, continue with the Plavix. Continue rest of his medical regimen. I will increase the hydralazine to optimize his blood pressure control. Increase his activity. Depending on his progress, further recommendation will be made. I am hopeful that he should be able to be discharged home soon. MMODL / IJN: [id number] /
--- NOTE | 2019-01-21 10:26 | P.PN ---
Subjective Patient is seen in follow-up for acute kidney injury on chronic kidney disease. Patient has chronic kidney disease stage IV with baseline creatinine in the range of 1.9-2.2 secondary to nephrosclerosis. Renal function is improved. Patient underwent a EMPERATRIZ and cardiac catheterization with 2 stents placed to the circumflex on January 17. She and has systolic CHF with ejection fraction of 40% with severe mitral regurgitation. Dyspnea is stable. He is maintained on oral diuretics. Urine output has been good. Chest x-ray from yesterday was sugg estive of vascular congestion. Vital signs are stable. General: The patient appeared well nourished and normally developed. HEENT: Head exam is unremarkable. Neck is without jugular venous distension. LUNGS: Breath sounds decreased. HEART: Rate and Rhythm are regular. First and second heart sounds normal. No murmurs, rubs or gallops. ABDOMEN: Abdominal exam reveals normal bowel sounds. Non-tender and non- distended. No evidence of peritonitis. EXTREMITITES: No clubbing, cyanosis, or edema. Objective - Vital Signs Vital signs: Vital Signs Temp 98.1 F 01/21/19 08:00 Pulse 70 01/21/19 08:46 Resp 18 01/21/19 08:00 BP 152/72 01/21/19 08:00 Pulse Ox 95 01/21/19 08:34 Intake & Output 01/20/19 01/21/19 01/21/19 18:59 06:59 18:59 Intake Total 840 240 838 Output Total 1175 600 Balance -335 -360 838 Weight 90.7 kg Intake: Oral 840 240 838 Output: Urine 1175 600 Other: Voiding Method Urinal # Bowel Movements 1 - Labs CBC & Chem 7: 01/18/19 07:18 01/21/19 05:56 Labs: Abnormal Lab Results - Last 24 Hours (Table) 01/20/19 01/20/19 01/20/19 Range/Units 11:39 16:31 20:36 Chloride (98-107) mmol/L BUN (9-20) mg/dL Creatinine (0.66-1.25) mg/dL Glucose (74-99) mg/dL POC Glucose (mg/dL) 124 H 232 H 187 H (75-99) mg/dL Magnesium (1.6-2.3) mg/dL 01/21/19 01/21/19 Range/Units 05:56 07:01 Chloride 109 H (98-107) mmol/L BUN 59 H (9-20) mg/dL Creatinine 2.53 H (0.66-1.25) mg/dL Glucose 62 L (74-99) mg/dL POC Glucose (mg/dL) 71 L (75-99) mg/dL Magnesium 2.5 H (1.6-2.3) mg/dL Assessment and Plan Plan: Assessment: 1. Acute kidney injury mostly prerenal secondary to cardiorenal syndrome. Renal function a little improved. Creatinine 2.53 today. 2. 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 3. Systolic CHF with ejection fraction of 40% with severe mitral regurgitation. 4. Dyspnea secondary to volume overload. 5. Coronary artery disease status post cardiac catheterization with 2 stents placed to the circumflex on January 17. 6. Hypertension with chronic kidney disease. Controlled. 7. Insulin-dependent diabetes mellitus. Plan: Maintain Lasix 40 mg orally once daily. I will give him an additional dose of 40 mg IV Lasix this evening. Avoid nephrotoxins. Continue to monitor renal function and urine output.
[2019-01-21] MEDS: APIXABAN 2.5 MG TABLET PO SCH ×2 (10:52→19:58)
[2019-01-21 11:46] LABS: Glucose,Whole Blood 90 mg/dL (75-99)
[2019-01-21] MEDS ORDERED: FUROSEMIDE 20 MG TAB PO SCH (14:00)
[2019-01-21] MEDS ORDERED: FUROSEMIDE 10 MG/ML 4 ML VIAL IV ONE (16:00)
--- NOTE | 2019-01-21 16:37 | CDI ---
Documentation Clarification Form Date: 01/21/2019 3:48:32 PM From: Ludmila Maher RN, CCDS Admit Date: 01/08/2019 9:28:00 PM Patient Name: Emanuel Allison Visit Number: [id number] Discharge Date: ATTENTION: The Clinical Documentation Specialists (CDI) and [facility] Coding Staff appreciate your assistance in clarifying documentation. Please respond to the clarification below the line at the bottom and electronically sign. The CDI & [facility] Coding staff will review the response and follow-up if needed. Please note: Queries are made part of the Legal Health Record. If you have any questions, please contact the author of this message via ITS. Dr. Walter Mac Atrial Fibrillation is documented in your ongoing progress notes starting 01/18/19 and further clarification is needed. History/Risk Factors: Diabetes mellitus, Hypertension, Former smoker, Heart valve replacement 2006 Clinical Indicators: 88 year-old male presented with symptoms of progressive dyspnea, acute coronary syndrome with recurrent episode of pulmonary edema. He underwent cardiac catheterization on 01/17/2019. He was found to have critical stenosis in the left circumflex and had stenting of the left circumflex, EKG/telemetry on admission: Normal sinus rhythm, nonspecific ST abnormality @ 85 bpm EKG/telemetry 01/17/19: Atrial fibrillation @ 75 bpm EKG/telemetry 01/18/19: Atrial Fibrillation @84 bpm ECHO sinus rhythm left ventricular systolic function mildly impaired with, an EF between 45-50 % severe mitral regurgitation No prior history of Atrial fibrillation is documented. Progress notes 01/21/2019: He is in atrial fibrillation with controlled ventricular response. Treatment: Telemetry monitoring Stop Asa, and start Eliquis 2.5 BID, Plavix po continue to Monitor In your professional opinion, can you please clarify the type of Atrial Fibrillation, if known? Paroxysmal XXXX Persistent Chronic/Permanent Other, please specify Unable to determine (Last Revision: December 2017) MTDD
[2019-01-21 16:42] LABS: Glucose,Whole Blood 179 mg/dL (75-99)
[2019-01-21] MEDS ORDERED: ARTIFICIAL TEARS-HYPROMELLOSE DROPS 15 ML BTL BOTH EYES PRN (16:42)
--- NOTE | 2019-01-21 16:44 | XR ---
EXAMINATION TYPE: XR chest 2V DATE OF EXAM: 01/21/2019 COMPARISON: 01/20/2019 HISTORY: Pulmonary edema TECHNIQUE: Frontal and lateral views of the chest are obtained. FINDINGS: There is blunting of right costophrenic angle with mild to moderate pleural fluid. There i s pulmonary interstitial edema. Heart is enlarged. There are sternal wires. IMPRESSION: Congestive heart failure with right pleural effusion improved slightly compared to yeste rday.
--- NOTE | 2019-01-21 17:04 | CDI ---
Documentation Clarification Form Date: 01/21/2019 4:37:53 PM From: Ludmila Maher RN, CCDS Admit Date: 01/08/2019 9:28:00 PM Patient Name: Emanuel Allison Visit Number: [id number] Discharge Date: ATTENTION: The Clinical Documentation Specialists (CDI) and [facility] Coding Staff appreciate your assistance in clarifying documentation. Please respond to the clarification below the line at the bottom and electronically sign. The CDI & [facility] Coding staff will review the response and follow-up if needed. Please note: Queries are made part of the Legal Health Record. If you have any questions, please contact the author of this message via ITS. Dr. Walter Mac Atrial Fibrillation is documented in your progress notes starting on 01/18/19 and further clarification is needed. Patients Admitting Diagnosis: Acute non ST elevation myocardial infarction Post-Operative Diagnosis: Acute non ST elevation myocardial infarction complicated by cardiomyopathy as well as congestive heart failure, severe mitral regurgitation Procedure performed: Successful stenting of the mid and distal left circumflex using 2 drug-eluting stents. History/Risk Factors: Diabetes mellitus, Hypertension, Former smoker, Heart valve replacement 2006 Clinical Indicators: 88-year-old male presented with symptoms of progressive dyspnea, ruled in for acute non ST elevation myocardial infarction. On 01/17/19 he under went a left heart cath with PTCA stent x2 to the mid and distal left circumflex. 01/18/19 progress notes has recurrent episode of pulmonary edema with severe mitral regurgitation that could be ischemic mitral regurgitation and atrial fibrillation is documented. 01/21 Cardiology progress notes: He is in atrial fibrillation with controlled ventricular response. Treatment: Telemetry monitoring Stop ASA, and start Eliquis 2.5 BID Plavix PO Hydralizine PO Coreg PO Continue to monitor In order to accurately reflect this patients severity of illness, please clarify if the post-operative diagnosis of Atrial fibrillation is: An expected post-procedural or post-surgical condition, related to the patient's underlying medical comorbidities An unexpected post-procedural or post-surgical condition but potential outcome of surgery. An unexpected post-procedural or post-surgical condition, related to the patients underlying medical comorbidities Other, please specify Unable to determine (Last Revision: December 2018) MTDD
[2019-01-21] MEDS ORDERED: FUROSEMIDE 10 MG/ML 10 ML VIAL IV STA (18:07)
[2019-01-21] MEDS: CYANOCOBALAMIN 500 MCG TAB PO SCH (19:58)
[2019-01-21 20:15] LABS: Glucose,Whole Blood 137 mg/dL (75-99)
[2019-01-21 20:36] LABS: Glucose,Whole Blood 149 mg/dL (75-99)
[2019-01-21] MEDS: INSULIN DETEMIR (LEVEMIR) 100 UNIT/ML SYR SQ SCH (22:10)
--- NOTE | 2019-01-22 00:02 | PN ---
PROGRESS NOTE DATE OF SERVICE: January 21, 2019. PRESENTING COMPLAINT: Short of breath. INTERVAL HISTORY: The patient with chronic kidney disease presented with acute ST-elevation myocardial infarction, acute CHF exacerbation, status post cardiac cath with stent on January 17. Also had postprocedure flash pulmonary edema. I did order 80 mg IV Lasix this morning, which patient received. Late in the afternoon, patient did make good urine was still requiring 4-5 L oxygen. I did repeat a chest x-ray done shows still showing pulmonary edema. Late in the day, I did again order another dose of IV Lasix and held off patient's discharge because of pulmonary edema. REVIEW OF SYSTEMS: Done for constitutional, cardiovascular, GI, pulmonary; relevant findings as above. CURRENT MEDICATIONS: Reviewed that include Eliquis. PHYSICAL EXAMINATION: VITAL SIGNS: Temperature 98.1, pulse 85m respiratory rate 18, blood pressure 152/72, pulse ox 95% on 5 L. GENERAL APPEARANCE: Sitting up a bit tired, a bit tired. EYES: Conjunctivae normal. NECK: JVD unable to assess. Mass not palpable. RESPIRATORY: Effort increased. LUNGS: Decreased breath sounds. Some crackles. CARDIOVASCULAR: First and second sounds minimal edema. ABDOMEN: Soft, nontender. Liver and spleen not palpable. PSYCHIATRY: Awake, answering questions appropriately. INVESTIGATIONS: Accu-Cheks are noted. Chest x-ray showing pulmonary edema, personally reviewed by me. ASSESSMENT: 1. Non ST elevation myocardial infarction, POA. 2. Acute congestive heart failure exacerbation from both systolic and diastolic dysfunction EF 40-45 percent with slow to resolve. 3. Severe mitral regurgitation, nonrheumatic. 4. Diabetes mellitus type 2, chronically on insulin. 5. Essential hypertension. 6. 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 7. Acute renal failure from diuresis that is prerenal. 8. Chronic obstructive pulmonary disease in an ex-smoker. 9. Anxiety and depression, not otherwise specified. 10.Essential hypertension. 11.Acute hypoxic respiratory failure from pulmonary edema from CHF and underlying chronic obstructive pulmonary disease. PLAN: Patient did get a dose of IV Lasix this morning 80 mg, added repeat dose later in the afternoon. Later in the afternoon, have held off the discharge. I did speak to patient's daughter at length. Earlier in the day, I did speak to Dr. Cornejo. We will hold out for after discharge today and then give one dose of 60 mg Lasix IV in the morning. Repeat electrolytes in the morning hoping the patient can be discharged depending on the clinical status. MMMIGUEL ANGELL / VIRGINIAN: [id number] /
[2019-01-22] MEDS: hydrALAZINE HCL 50 MG TAB PO SCH ×3 (00:22→15:17)
[2019-01-22] MEDS ORDERED: FUROSEMIDE 10 MG/ML 10 ML VIAL IV SCH (06:00)
[2019-01-22] MEDS: CARVEDILOL 6.25 MG TAB PO SCH (06:44)
[2019-01-22 06:47] LABS: Glucose,Whole Blood 81 mg/dL (75-99)
[2019-01-22 07:05] LABS: Calcium 8.9 mg/dL (8.4-10.2); Magnesium 2.3 mg/dL (1.6-2.3)
--- NOTE | 2019-01-22 07:10 | XR ---
EXAMINATION TYPE: XR chest 2V DATE OF EXAM: 01/22/2019 COMPARISON: 01/21/2019 HISTORY: Congestive heart failure. TECHNIQUE: Frontal and lateral views of the chest are obtained. FINDINGS: There is a small layering right pleural effusion similar in degree to the prior of 01/22/20 19. Cardiomediastinal silhouette is shifted to the right unchanged from the prior partially due to pa tient positioning and partially due to right hemithorax volume loss and atelectasis. There is moderat e interstitial edema and a trace left pleural effusion. Cardia mediastinal silhouette is enlarged wit h post CABG changes. IMPRESSION: Exam is similar to the prior of 01/21/2019 with moderate interstitial edema, small right pleural effusion and trace left pleural effusion likely on the basis of congestive heart failure.
[2019-01-22] MEDS: INSULIN ASPART (NovoLOG) 100 UNIT/ML VIAL SQ SCH ×2 (07:13→12:25)
[2019-01-22] MEDS: IPRATROPIUM-ALBUTEROL 3 ML NEB INHALATION SCH ×3 (07:53→17:03)
[2019-01-22] MEDS: APIXABAN 2.5 MG TABLET PO SCH (09:12)
[2019-01-22] MEDS: CLOPIDOGREL 75 MG TAB PO SCH (09:12)
[2019-01-22] MEDS: ATORVASTATIN 40 MG TAB PO SCH (09:13)
[2019-01-22] MEDS: FUROSEMIDE 40 MG TAB PO SCH (09:13)
[2019-01-22] MEDS: HYOSCYAMINE SULFATE 0.375 MG TAB.ER.12H PO SCH (09:13)
[2019-01-22] MEDS: VENLAFAXINE HCL ER 150 MG CAP PO SCH (09:13)
[2019-01-22] MEDS: ISOSORBIDE MONONITRATE ER 30 MG TAB.ER.24H PO SCH (09:13)
[2019-01-22] MEDS: LACTOBACILLUS ACIDOPH & BULGAR 1 EACH PACKET PO SCH (09:14)
[2019-01-22] MEDS: LACTULOSE 20 GM/30 ML CUP PO SCH (09:19)
[2019-01-22] MEDS: clonazePAM 0.5 MG TAB PO PRN (09:22)
[2019-01-22] MEDS: CALCITRIOL 0.25 MCG CAP PO SCH (09:22)
[2019-01-22 12:08] LABS: Glucose,Whole Blood 95 mg/dL (75-99)
[2019-01-22] MEDS: amLODIPine 10 MG TAB PO SCH (12:26)
--- NOTE | 2019-01-22 13:20 | P.PN ---
Subjective Patient is seen in follow-up for acute kidney injury on chronic kidney disease. Patient has chronic kidney disease stage IV with baseline creatinine in the range of 1.9-2.2 secondary to nephrosclerosis. Renal function is stable. Patient underwent a EMPERATRIZ and cardiac catheterization with 2 stents placed to the circumflex on January 17. She and has systolic CHF with ejection fraction of 40% with severe mitral regurgitation. Dyspnea is improved. He received IV Lasix yesterday. Urine output has been good. Vital signs are stable. General: The patient appeared well nourished and normally developed. HEENT: Head exam is unremarkable. Neck is without jugular venous distension. LUNGS: Breath sounds decreased. HEART: Rate and Rhythm are regular. First and second heart sounds normal. No murmurs, rubs or gallops. ABDOMEN: Abdominal exam reveals normal bowel sounds. Non-tender and non- distended. No evidence of peritonitis. EXTREMITITES: No clubbing, cyanosis, or edema. Objective - Vital Signs Vital signs: Vital Signs Temp 98.3 F 01/22/19 12:00 Pulse 81 01/22/19 12:00 Resp 20 01/22/19 12:00 BP 133/60 01/22/19 12:00 Pulse Ox 96 01/22/19 12:00 Intake & Output 01/21/19 01/22/19 01/22/19 18:59 06:59 18:59 Intake Total 1300 200 340 Output Total 1700 875 Balance 1300 -1500 -535 Weight 88.6 kg Intake: Oral 1300 200 340 Output: Urine 1700 875 Other: Voiding Method Urinal Urinal - Labs CBC & Chem 7: 01/18/19 07:18 01/22/19 06:03 Labs: Abnormal Lab Results - Last 24 Hours (Table) 01/21/19 01/21/19 01/21/19 Range/Units 16:41 19:57 20:35 BUN (9-20) mg/dL Creatinine (0.66-1.25) mg/dL Glucose (74-99) mg/dL POC Glucose (mg/dL) 179 H 137 H 149 H (75-99) mg/dL 01/22/19 Range/Units 06:03 BUN 62 H (9-20) mg/dL Creatinine 2.55 H (0.66-1.25) mg/dL Glucose 73 L (74-99) mg/dL POC Glucose (mg/dL) (75-99) mg/dL Assessment and Plan Plan: Assessment: 1. Acute kidney injury mostly prerenal secondary to cardiorenal syndrome. Renal function stable. Creatinine 2.55 today. 2. 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 3. Systolic CHF with ejection fraction of 40% with severe mitral regurgitation. 4. Dyspnea secondary to volume overload. 5. Coronary artery disease status post cardiac catheterization with 2 stents placed to the circumflex on January 17. 6. Hypertension with chronic kidney disease. Controlled. 7. Insulin-dependent diabetes mellitus. Plan: I will change Lasix to Demadex 20 mg once daily. I advised the patient to monitor his weight closely. If he gains more than 2-3 pounds or has worsening of dyspnea and edema then he is to increase the dose to 40 mg daily. Repeat BMP to 3 days postdischarge. Follow up outpatient in the next 1 week. Avoid nephrotoxins.
--- NOTE | 2019-01-22 15:08 | P.PN ---
Subjective Progress Note Date: 01/22/19 This is a pleasant 88-year-old gentleman with history of diabetes, hypertension, hyperlipidemia, renal disease, prior TIA, history of aortic valve replacement, who follows with Dr. García in the office. Of recent, the patient has been experiencing symptoms of progressively worsening shortness of breath with exertion. He presented to the hospital on this occasion with symptoms of difficulty in breathing. According to the patient he could not catch his breath at all. He denies any chest pressure or palpitations. Chest x-ray shows advanced pulmonary edema. His EKG on arrival here showed a normal sinus rhythm with nonspecific ST-T wave changes. Blood pressure on arrival here 164/99, h eart rate in the 90s, 93% on 2 L of oxygen. Blood pressure this morning 150/80 with a heart rate in the 70s, 96% on 40% BiPAP. White blood cell count on admission 17.8, 13.7 this morning, hemoglobin 11.5 on admission, 11.6 this morning, platelet count 238. Sodium 139, potassium 5.0, BUN 38 and creatinine 2.2. BNP level 17,800. Troponin 3.2 and 6.6.At the time of my examination this morning, patient is lying somewhat reclined in bed, does state that his breathing is significantly improved although not back to his normal. He states that just prior to admission here, he was having something to drink, and he inhaled feeling like it went into his lungs, he had a severe coughing spell which seemed to make his shortness of breath significantly worse. The patient had been seen recently by Dr. García in the office and was advised as an outpatient to undergo cardiac catheterization on this coming Monday. 01/10/2019 Patient seen and examined this morning, sitting up in the chair bedside. He diuresed well yesterday and through the night and feels considerably better today. Patient diuresed approximately 3200 mL of urine through the night, although his weight isn't reflective of good diuresis. His white blood cell count is normal, hemoglobin 10.7, platelet count 223. Sodium 140, potassium 4.1, BUN 48 and creatinine 2.21. I appreciate nephrology's consultation, it appears that patient's creatinine does sit around 1.9. 01/12/2019 Patient was seen and examined this morning, he feels well, breathing is stable, denies any chest discomfort. His creatinine today is 2.7, for this reason a cardiac catheterization will again be deferred for another 24-48 hours. At pressure 134/90 with a heart rate in the 70s, 93% on 6 L of oxygen. Repeat chest x-ray performed yesterday showed overall improvement in the appearance of the chest. The patient does continue to be on IV Lasix, we will leave the determination of diuretic dosing up to nephrology as well as IV fluids. 01/13/2019 Patient seen and examined this morning, he feels well, states that he slept well through the night last night. His creatinine today is up to 2.8. 01/14/2019 Patient seen and examined this morning, sitting up at the side of his bed, feels well, denies any chest discomfort and is breathing overall is stable. Blood pressure 118/60 with a heart rate in the 60s, 94% on 6 L of oxygen.White blood cell count 7.3, hemoglobin 10.2, platelet count 203. Sodium 138, potassium 4.6, BUN 59 and creatinine 2.7. 01/15/2019 Patient seen and examined this morning, feels well, creatinine down to 2.4 to day. Breathing is stable, denies any chest discomfort. Blood pressure 144/70 with a heart rate in the 70s, 95% on 4 L of oxygen. White blood cell count 10.8, hemoglobin 10.3, platelet count 220. Sodium 139, potassium 5.1, BUN 58 and creatinine 2.4. 01/16/2019 Patient seen and examined this morning, the nurse had ambulated the patient in the hallway, on returning to the room he became extremely short of breath appeared to go into pulmonary edema. He was given a stat dose of IV Lasix. He is currently at this point on a nonrebreather. According to the patient, he's feeling significantly better than he was earlier this morning. Let pressure 126/60 with a heart rate in the 80s, 93% on 5 L of oxygen. White blood cell count 12.4, hemoglobin 11.1, platelet count 262. Sodium 141, potassium 5.0, BUN [address] Kumar did have a discussion with us, she recommended patient go ahead and proceed with cardiac catheterization. Dr. Mac did speak with Dr. García and the decision was made to proceed with EMPERATRIZ and cardiac catheterization tomorrow morning if the patient's breathing is improved and he is able to lie flat. The risks and the benefits were again explained to the patient in detail. 01/22/2019 A shunt seen and examined this morning, feels well, breathing is stable. Anticipating discharge home today. Objective - Vital Signs Vital signs: Vital Signs Temp 98.3 F 01/22/19 12:00 Pulse 88 01/22/19 14:37 Resp 20 01/22/19 12:00 BP 133/60 01/22/19 12:00 Pulse Ox 90 L 01/22/19 14:37 Intake & Output 01/21/19 01/22/19 01/22/19 18:59 06:59 18:59 Intake Total 1300 200 700 Output Total 1700 875 Balance 1300 -1500 -175 Weight 88.6 kg Intake: Oral 1300 200 700 Output: Urine 1700 875 Other: Voiding Method Urinal Urinal - Exam PHYSICAL EXAMINATION: GENERAL: 88-year-old gentleman in no acute distress at the time of my examination HEENT: Head is atraumatic, normocephalic. Pupils equal, round. Sclera anicteric. Conjunctiva are clear. Mucous membranes of the mouth are moist. Neck is supple. There is elevated jugular venous pressure. No carotid bruit is heard. HEART EXAMINATION: S1 and S2 1 systolic murmur is heard CHEST EXAMINATION: Lungs are with mild diminished air entry to the bases ABDOMEN: Soft, nontender. Bowel sounds are heard. No organomegaly noted. EXTREMITIES: 2+ peripheral pulses with no evidence of peripheral edema and no calf tenderness noted. NEUROLOGIC patient is awake, alert and oriented 3. - Labs CBC & Chem 7: 01/18/19 07:18 01/22/19 06:03 Labs: Abnormal Lab Results - Last 24 Hours (Table) 01/21/19 01/21/19 01/21/19 Range/Units 16:41 19:57 20:35 BUN (9-20) mg/dL Creatinine (0.66-1.25) mg/dL Glucose (74-99) mg/dL POC Glucose (mg/dL) 179 H 137 H 149 H (75-99) mg/dL 01/22/19 Range/Units 06:03 BUN 62 H (9-20) mg/dL Creatinine 2.55 H (0.66-1.25) mg/dL Glucose 73 L (74-99) mg/dL POC Glucose (mg/dL) (75-99) mg/dL Assessment and Plan Plan: Assessment and plan #1 congestive heart failure, LV function unknown #2 non-ST elevation IA #3 history of aortic valve replacement #4 hypertension #5 diabetes #6 hyperlipidemia #7 acute on chronic renal disease Plan Cardiology's perspective, patient may be able to be discharged home today. We will make him a follow-up appointment to see Dr. García in the office post discharge. DNP note has been reviewed, I agree with a documented findings and plan of care. Patient was seen and examined.
[2019-01-22 15:15] VITALS: BP 135/78; PULSE 75; RESP 16; TEMP 97.7
--- NOTE | 2019-01-22 15:24 | CDI ---
Documentation Clarification Form Date: 01/21/2019 4:37:00 PM From: Ludmila Maher RN, CCDS Admit Date: 01/08/2019 9:28:00 PM Patient Name: Emanuel Allison Visit Number: [id number] Discharge Date: ATTENTION: The Clinical Documentation Specialists (CDI) and [facility] Coding Staff appreciate your assistance in clarifying documentation. Please respond to the clarification below the line at the bottom and electronically sign. The CDI & [facility] Coding staff will review the response and follow-up if needed. Please note: Queries are made part of the Legal Health Record. If you have any questions, please contact the author of this message via ITS. Dr. Walter Mac Atrial Fibrillation is documented in your progress notes starting on 01/18/19 and further clarification is needed. Patients Admitting Diagnosis: Acute non ST elevation myocardial infarction Post-Operative Diagnosis: Acute non ST elevation myocardial infarction complicated by cardiomyopathy as well as congestive heart failure, severe mitral regurgitation Procedure performed: Successful stenting of the mid and distal left circumflex using 2 drug-eluting stents. History/Risk Factors: Diabetes mellitus, Hypertension, Former smoker, Heart valve replacement 2006 Clinical Indicators: 88-year-old male presented with symptoms of progressive dyspnea, ruled in for acute non ST elevation myocardial infarction. On 01/17/19 he under went a left heart cath with PTCA stent x2 to the mid and distal left circumflex. 01/18/19 progress notes has recurrent episode of pulmonary edema with severe mitral regurgitation that could be ischemic mitral regurgitation and atrial fibrillation is documented. 01/21 Cardiology progress notes: He is in atrial fibrillation with controlled ventricular response. Treatment: Telemetry monitoring Stop ASA, and start Eliquis 2.5 BID Plavix PO Hydralizine PO Coreg PO Continue to monitor In order to accurately reflect this patients severity of illness, please clarify if the post-operative diagnosis of Atrial fibrillation is: An expected post-procedural or post-surgical condition, related to the patient's underlying medical comorbidities An unexpected post-procedural or post-surgical condition but potential outcome of surgery. An unexpected post-procedural or post-surgical condition, related to the patients underlying medical comorbidities Other, please specify Unable to determine (Last Revision: December 2018) He had atrial fibrillation pre procedure. MTDD
--- NOTE | 2019-01-22 19:03 | DS ---
DISCHARGE SUMMARY DATE OF ADMISSION: 01/08/2019 DATE OF DISCHARGE: 01/22/2019 DISCHARGE DIAGNOSES: 1. Acute non ST elevation myocardial infarction, POA. 2. Acute congestive heart failure exacerbation from both systolic and diastolic dysfunction EF 40-45 percent, POA. 3. Severe mitral regurgitation, nonrheumatic. 4. Diabetes mellitus type 2, chronically on insulin. 5. Essential hypertension. 6. 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 7. Acute renal failure from diuresis that is prerenal. 8. Chronic obstructive pulmonary disease in an ex-smoker. 9. Anxiety, depression not otherwise specified. 10.Essential hypertension. 11.Acute hypoxic respiratory failure from pulmonary edema, congestive heart failure, and element of chronic obstructive pulmonary disease. 12.Successful cardiac catheterization with stenting to the 2 stents to the circumflex. CONSULTATIONS: Dr. Cornejo and colleagues from Nephrology. Dr. Mac and colleagues from Nephrology. HOSPITAL COURSE: This pleasant gentleman presented with acute [place], CHF, COPD exacerbation, did undergo cardiac catheterization. Presenting creatinine was 2.28. Creatinine did go up to 2.97. It is down to 2.55. The patient has done well with diuresis, not tolerating a diet. Today, the care was discussed with the patient's family at the bedside. Overall doing much better. The patient did walk up in the hallway. PHYSICAL EXAMINATION: Temperature 98.3, pulse 81, respiration 20, blood pressure 133/60, pulse ox 96% on 2 L. LUNGS: Improved air entry. Cardiovascular: First and sounds normal. LABS: Potassium 5, BUN 62, creatinine 2.55. DISCHARGE MEDICATIONS: 1. Allopurinol 300 mg q.h.s. 2. Aspirin 81 mg q.h.s. 3. Lipitor 40 mg p.o. daily. 4. Calcitriol 0.5 mcg p.o. Monday, Monday. 5. Coreg 6.25 mg p.o. b.i.d. 6. Plavix 75 mg p.o. daily. 7. Vitamin B12 500 mcg p.o. q.h.s. 8. Vitamin D2 50,000 units p.o. 14 days. 9. Levbid 0.375 mg p.o. b.i.d. 10.Probiotic 1 capsule p.o. daily. 11.Effexor XR 150 mg p.o. daily. 12.Norvasc 10 mg p.o. daily. 13.Eliquis 2.5 mg p.o. b.i.d. 14.DuoNeb q.i.d. 15.Imdur ER 30 mg p.o. daily. 16.Nitrostat 0.4 sublingual q.5 p.r.n. 17.Klonopin 0.5 mg p.o. b.i.d. 6 tablets. 18.Hydralazine 75 mg q8h. 19.Artificial Tears 1 drop q.i.d. p.r.n. 20.Lantus 36 units subcu q.h.s. 21.Insulin lispro 6 units subcu a.c. t.i.d. 22.Demadex 20 mg p.o. daily. 23.Oxygen 2 L. DISPOSITION: [facility]. FOLLOWUP: Follow up with Dr. Kumar in 1 week. Follow up with Dr. Minda Lujan, follow up with Dr. De La O in 1 week. Follow up with Dr. Capps in 1 week. Additional information: The patient's 2D echocardiogram showed EF of 45-50 percent and wall motion abnormality. Also had a EMPERATRIZ by Dr. Capps that showed the EF of 40%. Severely dilated left atrium, severe mitral regurgitation, bioprosthetic aortic valve. Also had a cardiac catheterization with successful stent to the mid left circumflex and proximal left circumflex Discussion and discharge planning more than [address] Minda Lujan. MMODL / IJN: [id number] /
== END 2019-01-22 17:03 | disposition home health service (06) | DRG 246 ==
LOC: EC 18:55 → 3SCARD 21:28
PROVIDERS: ADMIT Hospitalist; ATTEND Hospitalist
PROC: 5A09357 Assistance with Respiratory Ventilation, Less than 24 Consecutive Hours, Continuous Positive Airway Pressure (ICD-10-PCS; 2019-01-08)
PROC: 5A09357 Assistance with Respiratory Ventilation, Less than 24 Consecutive Hours, Continuous Positive Airway Pressure (ICD-10-PCS; 2019-01-11)
PROC: B2111ZZ Fluoroscopy of Multiple Coronary Arteries using Low Osmolar Contrast (ICD-10-PCS; 2019-01-17)
PROC: 027035Z Dilation of Coronary Artery, One Artery with Two Drug-eluting Intraluminal Devices, Percutaneous Approach (ICD-10-PCS; principal; 2019-01-17 07:00)
PROC: 4A023N7 Measurement of Cardiac Sampling and Pressure, Left Heart, Percutaneous Approach (ICD-10-PCS; 2019-01-17 07:30)
DX: I21.4 Non-ST elevation (NSTEMI) myocardial infarction (principal); I50.43 Acute on chronic combined systolic (congestive) and diastolic (congestive) heart failure; J96.01 Acute respiratory failure with hypoxia; N17.0 Acute kidney failure with tubular necrosis; I13.0 Hypertensive heart and chronic kidney disease with heart failure and stage 1 through stage 4 chronic kidney disease, or unspecified chronic kidney disease; I48.1 Persistent atrial fibrillation; J44.1 Chronic obstructive pulmonary disease with (acute) exacerbation; N18.4 Chronic kidney disease, stage 4 (severe); I25.5 Ischemic cardiomyopathy; E11.22 Type 2 diabetes mellitus with diabetic chronic kidney disease; N14.1 Nephropathy induced by other drugs, medicaments and biological substances; I34.0 Nonrheumatic mitral (valve) insufficiency; D72.829 Elevated white blood cell count, unspecified; E78.5 Hyperlipidemia, unspecified; F17.290 Nicotine dependence, other tobacco product, uncomplicated; F32.9 Major depressive disorder, single episode, unspecified; F41.9 Anxiety disorder, unspecified; G47.33 Obstructive sleep apnea (adult) (pediatric); R32 Unspecified urinary incontinence; I25.10 Atherosclerotic heart disease of native coronary artery without angina pectoris; T50.2X5A Adverse effect of carbonic-anhydrase inhibitors, benzothiadiazides and other diuretics, initial encounter; T50.8X5A Adverse effect of diagnostic agents, initial encounter; H26.9 Unspecified cataract; M10.9 Gout, unspecified; Z79.02 Long term (current) use of antithrombotics/antiplatelets; Z79.4 Long term (current) use of insulin; Z79.82 Long term (current) use of aspirin; Z79.899 Other long term (current) drug therapy; Z95.3 Presence of xenogenic heart valve; Z95.1 Presence of aortocoronary bypass graft; Z86.73 Personal history of transient ischemic attack (TIA), and cerebral infarction without residual deficits; Z88.1 Allergy status to other antibiotic agents; Z88.2 Allergy status to sulfonamides
CPT/HCPCS: 36415; 71045; 71046; 80048; 80053; 81001; 83036; 83735; 83880; 84484; 84550; 85025; 85610; 85730; 93005; 93306; 93312; 93320; 93325; 93454; 94640; 94660; 94760; 96365; 96375; 96376; 99291; C1874

== ENCOUNTER 2019-02-14 07:14 | Inpatient (IN) | payer MEDICARE ==
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
--- NOTE | 2019-02-14 07:58 | XR ---
EXAMINATION TYPE: XR chest 2V DATE OF EXAM: 02/14/2019 COMPARISON: Chest x-ray January 22, 2019. HISTORY: Chest pain and shortness of breath TECHNIQUE: Frontal and lateral views of the chest are obtained. FINDINGS: Overlying sternal wires are redemonstrated. There is chronic parenchymal changes bilaterall y with right-sided volume loss as there is mediastinal shift all redemonstrated. There is small to mo derate-sized right pleural effusion increased in size from prior exam with associated right basilar a telectasis and/or infiltrate. Cardiac silhouette size is stable and upper limits of normal with ather osclerotic thoracic aorta. Osseous structures are demineralized with multilevel spurring in the spine . IMPRESSION: Chronic parenchymal changes with right-sided volume loss redemonstrated. Increasing size small to moderate pleural effusion with associated right basilar atelectasis and/or infiltrate noted .
[2019-02-14 08:59] LABS: Basophils % (A) 0 %; Eosinophils # (A) 0.5 k/uL (0-0.7); Eosinophils % (A) 5 %; HCT 31.5 % (39.0-53.0); HGB 10.3 gm/dL (13.0-17.5); Lymphocytes # (A) 0.6 k/uL (1.0-4.8); Lymphocytes % (A) 7 %; MCH 34.3 pg (25.0-35.0); MCHC 32.8 g/dL (31.0-37.0); MCV 104.6 fL (80.0-100.0); Macrocytosis Slight; Mean Platelet Volume 8.1; Monocytes # (A) 0.5 k/uL (0-1.0); Monocytes % (A) 6 %; Neutrophils # (A) 7.1 k/uL (1.3-7.7); Neutrophils % (A) 80 %; Platelet Count 236 k/uL (150-450); RBC 3.01 m/uL (4.30-5.90); RDW 13.8 % (11.5-15.5); WBC 8.9 k/uL (3.8-10.6)
[2019-02-14 09:04] LABS: INR 1.1 (<1.2); Prothrombin Time 11.4 sec (9.0-12.0)
[2019-02-14 09:18] LABS: Calcium 8.6 mg/dL (8.4-10.2); Magnesium 2.4 mg/dL (1.6-2.3); Potassium 4.6 mmol/L (3.5-5.1)
[2019-02-14 09:38] LABS: Creatine Kinase MB 1.3 ng/mL (0.0-2.4)
[2019-02-14 09:43] LABS: Troponin I 0.068 ng/mL (0.000-0.034)
[2019-02-14] MEDS ORDERED: FUROSEMIDE 10 MG/ML 4 ML VIAL IV STA (10:59)
[2019-02-14] MEDS ORDERED: ASPIRIN 325 MG TAB PO STA (11:00)
[2019-02-14 12:23] LABS: Glucose,Whole Blood 116 mg/dL (75-99)
[2019-02-14] MEDS ORDERED: amLODIPine 10 MG TAB PO STA (14:33)
[2019-02-14] MEDS ORDERED: ISOSORBIDE MONONITRATE ER 30 MG TAB.ER.24H PO STA (14:34)
[2019-02-14] MEDS: hydrALAZINE HCL 25 MG TAB PO SCH ×2 (14:54→21:31)
[2019-02-14] MEDS: FUROSEMIDE 40 MG TAB PO SCH ×2 (14:54→21:30)
[2019-02-14] MEDS: CARVEDILOL 6.25 MG TAB PO SCH (17:13)
[2019-02-14] MEDS ORDERED: NITROGLYCERIN SL TABS 0.4 MG TAB SUBLINGUAL PRN (18:35)
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
[2019-02-14] MEDS: IPRATROPIUM-ALBUTEROL 3 ML NEB INHALATION SCH (20:28)
[2019-02-14 21:01] LABS: Glucose,Whole Blood 152 mg/dL (75-99)
[2019-02-14] MEDS: ASPIRIN 81 MG PO SCH (21:30)
[2019-02-14] MEDS: APIXABAN 2.5 MG TABLET PO SCH (21:30)
[2019-02-14] MEDS: clonazePAM 0.5 MG TAB PO SCH (21:30)
[2019-02-14] MEDS: INSULIN DETEMIR (LEVEMIR) 100 UNIT/ML SYR SQ SCH (21:31)
[2019-02-14] MEDS: MELATONIN 5 MG TABLET PO SCH (21:36)
[2019-02-15] MEDS: CARVEDILOL 6.25 MG TAB PO SCH ×2 (06:16→17:05)
[2019-02-15 07:04] LABS: Glucose,Whole Blood 69 mg/dL (75-99)
[2019-02-15] MEDS: INSULIN ASPART (NovoLOG) 100 UNIT/ML VIAL SQ SCH ×4 (07:14→16:46)
[2019-02-15 07:24] LABS: Glucose,Whole Blood 107 mg/dL (75-99)
[2019-02-15] MEDS: CLOPIDOGREL 75 MG TAB PO SCH (08:00)
[2019-02-15] MEDS: amLODIPine 10 MG TAB PO SCH (08:00)
[2019-02-15] MEDS: ISOSORBIDE MONONITRATE ER 30 MG TAB.ER.24H PO SCH (08:00)
[2019-02-15] MEDS: VENLAFAXINE HCL ER 150 MG CAP PO SCH (08:00)
[2019-02-15] MEDS: ATORVASTATIN 40 MG TAB PO SCH (08:00)
[2019-02-15] MEDS: APIXABAN 2.5 MG TABLET PO SCH ×2 (08:00→20:33)
[2019-02-15] MEDS: hydrALAZINE HCL 25 MG TAB PO SCH ×3 (08:00→20:33)
[2019-02-15] MEDS: clonazePAM 0.5 MG TAB PO SCH ×2 (08:00→20:33)
[2019-02-15] MEDS: FUROSEMIDE 40 MG TAB PO SCH ×3 (08:00→23:34)
[2019-02-15] MEDS: IPRATROPIUM-ALBUTEROL 3 ML NEB INHALATION SCH ×3 (08:21→19:27)
[2019-02-15] MEDS ORDERED: ASPIRIN 325 MG TAB PO SCH (09:00)
[2019-02-15 11:28] VITALS: BMI 26.7
[2019-02-15 11:51] LABS: Glucose,Whole Blood 161 mg/dL (75-99)
[2019-02-15 12:24] LABS: Calcium 8.8 mg/dL (8.4-10.2); Potassium 4.5 mmol/L (3.5-5.1)
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
[2019-02-15 16:46] LABS: Glucose,Whole Blood 89 mg/dL (75-99)
--- NOTE | 2019-02-15 16:54 | P.PN ---
Subjective Patient was admitted for CHF exacerbation patient has significant clinical improvement no JVD and no peripheral edema patient was evaluated cardiology recommending one more days of IV Lasix possibility of discharge tomorrow serum creatinine remained fairly stable mildly elevated. Constitutional: Denied any fatigue denied any fever. Cardio vascular: denied any chest pain, palpitations Gastrointestinal denied any nausea vomiting Pulmonary: Denied any shortness of breath cough Neurologic denied any new focal deficits All inpatient medications were reviewed and appropriate changes in these medications as dictated in the interval history and assessment and plan. Objective - Vital Signs Vital signs: Vital Signs Temp 98.0 F 02/15/19 07:39 Pulse 70 02/15/19 12:31 Resp 16 02/15/19 11:52 BP 172/74 02/15/19 11:45 Pulse Ox 95 02/15/19 11:45 Intake & Output 02/14/19 02/15/19 02/15/19 18:59 06:59 18:59 Intake Total 360 240 Output Total 700 450 Balance -700 360 -210 Weight 88.451 kg 84.6 kg Intake: Oral 360 240 Output: Urine 700 450 Other: Voiding Method Urinal # Voids 2 1 2 # Bowel Movements 1 - Exam PHYSICAL EXAMINATION: GENERAL: The patient is alert and oriented x3, not in any acute distress. Well developed, well nourished. HEENT: Pupils are round and equally reacting to light. EOMI. No scleral icterus. No conjunctival pallor. Normocephalic, atraumatic. No pharyngeal erythema. No thyromegaly. CARDIOVASCULAR: S1 and S2 present. No rubs, or gallops. There is a systolic murmur in the aortic area I did not appreciate any JVD PULMONARY: Chest is clear to auscultation, no wheezing or crackles. ABDOMEN: Soft, nontender, nondistended, normoactive bowel sounds. No palpable organomegaly. MUSCULOSKELETAL: No joint swelling or deformity. EXTREMITIES: No cyanosis, clubbing, or pedal edema. NEUROLOGICAL: Gross neurological examination did not reveal any focal deficits. SKIN: No rashes. - Labs CBC & Chem 7: 02/14/19 07:30 02/15/19 12:02 Labs: Abnormal Lab Results - Last 24 Hours (Table) 02/14/19 02/15/19 02/15/19 Range/Units 21:00 07:03 07:22 BUN (9-20) mg/dL Creatinine (0.66-1.25) mg/dL Glucose (74-99) mg/dL POC Glucose (mg/dL) 152 H 69 L 107 H (75-99) mg/dL Troponin I (0.000-0.034) ng/mL 02/15/19 02/15/19 02/15/19 Range/Units 11:46 12:02 14:37 BUN 44 H (9-20) mg/dL Creatinine 2.27 H (0.66-1.25) mg/dL Glucose 148 H (74-99) mg/dL POC Glucose (mg/dL) 161 H (75-99) mg/dL Troponin I 0.048 H* (0.000-0.034) ng/mL Assessment and Plan Plan: -Congestive heart failure chronic systolic and diastolic dysfunction dysfunction with acute exacerbation ejection fraction of around 45% patient was started on Lasix which will be continued -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 fib presently rate controlled continue with anti-coagulation -COPD without any acute exacerbation -I aortic valvular disease status post replacement of this valve in the past -Depression
[2019-02-15] MEDS: ASPIRIN 81 MG PO SCH (20:33)
[2019-02-15] MEDS: MELATONIN 5 MG TABLET PO SCH (20:33)
[2019-02-15] MEDS ORDERED: BENZOCAINE/MENTHOL LOZENG 1 EACH LOZENGE MUCOUS MEM PRN (20:37)
[2019-02-15 21:02] LABS: Glucose,Whole Blood 206 mg/dL (75-99)
[2019-02-15] MEDS: INSULIN DETEMIR (LEVEMIR) 100 UNIT/ML SYR SQ SCH (21:20)
[2019-02-16 06:09] LABS: Glucose,Whole Blood 49 mg/dL (75-99)
[2019-02-16 06:17] LABS: Glucose,Whole Blood 46 mg/dL (75-99)
[2019-02-16 06:28] LABS: Glucose,Whole Blood 60 mg/dL (75-99)
[2019-02-16] MEDS: INSULIN ASPART (NovoLOG) 100 UNIT/ML VIAL SQ SCH ×3 (06:33→17:41)
[2019-02-16] MEDS: CARVEDILOL 6.25 MG TAB PO SCH ×2 (06:45→17:41)
[2019-02-16 06:53] LABS: Glucose,Whole Blood 105 mg/dL (75-99)
[2019-02-16 07:21] LABS: Calcium 8.4 mg/dL (8.4-10.2); Potassium 4.3 mmol/L (3.5-5.1)
[2019-02-16] MEDS: APIXABAN 2.5 MG TABLET PO SCH ×2 (08:13→21:05)
[2019-02-16] MEDS: CLOPIDOGREL 75 MG TAB PO SCH (08:13)
[2019-02-16] MEDS: VENLAFAXINE HCL ER 150 MG CAP PO SCH (08:13)
[2019-02-16] MEDS: ATORVASTATIN 40 MG TAB PO SCH (08:13)
[2019-02-16] MEDS: amLODIPine 10 MG TAB PO SCH (08:13)
[2019-02-16] MEDS: FUROSEMIDE 40 MG TAB PO SCH ×3 (08:13→23:20)
[2019-02-16] MEDS: clonazePAM 0.5 MG TAB PO SCH ×2 (08:14→21:05)
[2019-02-16] MEDS: IPRATROPIUM-ALBUTEROL 3 ML NEB INHALATION SCH ×3 (08:38→19:25)
[2019-02-16] MEDS: ISOSORBIDE MONONITRATE ER 30 MG TAB.ER.24H PO SCH (09:15)
[2019-02-16] MEDS: hydrALAZINE HCL 25 MG TAB PO SCH ×3 (09:15→21:05)
[2019-02-16 11:19] LABS: Glucose,Whole Blood 166 mg/dL (75-99)
--- NOTE | 2019-02-16 15:47 | P.PN ---
Subjective Patient was admitted for CHF exacerbation patient has significant clinical improvement no JVD and no peripheral edema patient was evaluated cardiology recommending one more days of IV Lasix possibility of discharge tomorrow serum creatinine remained fairly stable mildly elevated. 02/16/2019 Patient is fairly doing okay patient is fairly euvolemic bit short of breath when he lays down because of that in spite of her is increased creatinine good and continue with Lasix possibility of discharge tomorrow Constitutional: Denied any fatigue denied any fever. Cardio vascular: denied any chest pain, palpitations Gastrointestinal denied any nausea vomiting Pulmonary: Denied any shortness of breath cough Neurologic denied any new focal deficits All inpatient medications were reviewed and appropriate changes in these medications as dictated in the interval history and assessment and plan. Objective - Vital Signs Vital signs: Vital Signs Temp 97.4 F L 02/16/19 15:38 Pulse 74 02/16/19 15:38 Resp 16 02/16/19 15:38 BP 145/63 02/16/19 15:38 Pulse Ox 95 02/16/19 15:38 Intake & Output 02/15/19 02/16/19 02/16/19 18:59 06:59 18:59 Intake Total 480 20 480 Output Total 450 400 Balance 30 20 80 Weight 84.6 kg 85.8 kg Intake: IV 20 Invasive Line 1 20 Oral 480 480 Output: Urine 450 400 Other: Voiding Method Urinal # Voids 2 1 1 # Bowel Movements 1 - Exam PHYSICAL EXAMINATION: GENERAL: The patient is alert and oriented x3, not in any acute distress. Well developed, well nourished. HEENT: Pupils are round and equally reacting to light. EOMI. No scleral icterus. No conjunctival pallor. Normocephalic, atraumatic. No pharyngeal erythema. No thyromegaly. CARDIOVASCULAR: S1 and S2 present. No rubs, or gallops. There is a systolic murmur in the aortic area PULMONARY: Chest is clear to auscultation, no wheezing or crackles. ABDOMEN: Soft, nontender, nondistended, normoactive bowel sounds. No palpable organomegaly. MUSCULOSKELETAL: No joint swelling or deformity. EXTREMITIES: No cyanosis, clubbing, or pedal edema. NEUROLOGICAL: Gross neurological examination did not reveal any focal deficits. SKIN: No rashes. - Labs CBC & Chem 7: 02/14/19 07:30 02/16/19 06:00 Labs: Abnormal Lab Results - Last 24 Hours (Table) 02/15/19 02/15/19 02/16/19 Range/Units 14:37 21:00 06:00 BUN 43 H (9-20) mg/dL Creatinine 2.35 H (0.66-1.25) mg/dL Glucose 37 L* (74-99) mg/dL POC Glucose (mg/dL) 206 H (75-99) mg/dL Troponin I 0.048 H* (0.000-0.034) ng/mL 02/16/19 02/16/19 02/16/19 Range/Units 06:08 06:10 06:26 BUN (9-20) mg/dL Creatinine (0.66-1.25) mg/dL Glucose (74-99) mg/dL POC Glucose (mg/dL) 49 L 46 L 60 L (75-99) mg/dL Troponin I (0.000-0.034) ng/mL 02/16/19 02/16/19 Range/Units 06:43 11:16 BUN (9-20) mg/dL Creatinine (0.66-1.25) mg/dL Glucose (74-99) mg/dL POC Glucose (mg/dL) 105 H 166 H (75-99) mg/dL Troponin I (0.000-0.034) ng/mL Assessment and Plan Plan: -Congestive heart failure chronic systolic and diastolic dysfunction dysfunction with acute exacerbation ejection fraction of around 45% patient was started on Lasix which will be continued to my improved heart failure status may benefit from one more day of IV diuretic therapy -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 fib presently rate controlled continue with anti-coagulation -COPD without any acute exacerbation -I aortic valvular disease status post replacement of this valve in the past -Depression
--- NOTE | 2019-02-16 16:44 | P.PN ---
Subjective Progress Note Date: 02/16/19 This 88-year-old gentleman with multiple medical issues including severe mitral regurgitation, coronary artery disease and also aortic valve disease is admitted to the hospital with increasing shortness of breath. Patient responded well to IV diuretics. Overall is feeling better. Denies any chest pain. His creatinine has gone up slightly. We'll continue IV Lasix for one more day. Can switch to by mouth Lasix tomorrow. We'll review the echocardiogram. We'll also discuss with Dr. García Objective - Vital Signs Vital signs: Vital Signs Temp 97.4 F L 02/16/19 15:38 Pulse 74 02/16/19 15:38 Resp 16 02/16/19 15:38 BP 145/63 02/16/19 15:38 Pulse Ox 95 02/16/19 15:38 Intake & Output 02/15/19 02/16/19 02/16/19 18:59 06:59 18:59 Intake Total 480 20 480 Output Total 450 400 Balance 30 20 80 Weight 84.6 kg 85.8 kg Intake: IV 20 Invasive Line 1 20 Oral 480 480 Output: Urine 450 400 Other: Voiding Method Urinal # Voids 2 1 1 # Bowel Movements 1 - Exam GENERAL EXAM: Patient is alert and oriented and doesn't appear to be in any acute distress HEENT: Normocephalic. Normal reaction of pupils, equal size, normal range of extraocular motion. No erythema or exudates in the throat. NECK: No masses, no nuchal rigidity. CHEST: No chest wall deformity. LUNGS: Equal air entry with no crackles or wheeze. HEART: S1 and S2 normal with no audible mumurs or gallops. Regular rhythm, femorals equal on both sides.. ABDOMEN: No hepatosplenomegaly, normal bowel sounds, no guarding or rigidity. SKIN: No rashes CENTRAL NERVOUS SYSTEM: No focal deficits. EXTREMITIES: No cyanosis, clubbing or edema. - Labs CBC & Chem 7: 02/14/19 07:30 02/16/19 06:00 Labs: Abnormal Lab Results - Last 24 Hours (Table) 02/15/19 02/16/19 02/16/19 Range/Units 21:00 06:00 06:08 BUN 43 H (9-20) mg/dL Creatinine 2.35 H (0.66-1.25) mg/dL Glucose 37 L* (74-99) mg/dL POC Glucose (mg/dL) 206 H 49 L (75-99) mg/dL 02/16/19 02/16/19 02/16/19 Range/Units 06:10 06:26 06:43 BUN (9-20) mg/dL Creatinine (0.66-1.25) mg/dL Glucose (74-99) mg/dL POC Glucose (mg/dL) 46 L 60 L 105 H (75-99) mg/dL 02/16/19 Range/Units 11:16 BUN (9-20) mg/dL Creatinine (0.66-1.25) mg/dL Glucose (74-99) mg/dL POC Glucose (mg/dL) 166 H (75-99) mg/dL Assessment and Plan (1) Acute combined systolic and diastolic heart failure Current Visit: Yes Status: Acute Code(s): I50.41 - ACUTE COMBINED SYSTOLIC AND DIASTOLIC (CONGESTIVE) HRT FAIL SNOMED Code(s): 807400664065835 (2) Chronic atrial fibrillation Current Visit: Yes Status: Acute Code(s): I48.2 - CHRONIC ATRIAL FIBRILLATION SNOMED Code(s): 173050735 (3) Ischemic heart disease Current Visit: Yes Status: Acute Code(s): I25.9 - CHRONIC ISCHEMIC HEART DISEASE, UNSPECIFIED SNOMED Code(s): 224523072 (4) Elevated troponin Current Visit: Yes Status: Acute Code(s): R74.8 - ABNORMAL LEVELS OF OTHER SERUM ENZYMES SNOMED Code(s): 523039123 (5) Severe mitral regurgitation Current Visit: Yes Status: Acute Code(s): I34.0 - NONRHEUMATIC MITRAL (VALVE) INSUFFICIENCY SNOMED Code(s): 64006899 Plan: Patient overall seems to be clinically stable. He is lying in bed comfortably at this time. We'll switch to by mouth Lasix is in 24 hours. Increase activity as tolerated
[2019-02-16 16:56] LABS: Glucose,Whole Blood 129 mg/dL (75-99)
--- NOTE | 2019-02-16 17:33 | ECHOF ---
Referral Reason:Chest pain and cardiomyopathy MEASUREMENTS -------- HEIGHT: 180.3 cm WEIGHT: 85.7 kg BP: IVSd: 1.4 cm (0.6 - 1.1) LVIDd: 5.2 cm (3.9 - 5.3) LVPWd: 1.6 cm (0.6 - 1.1) EDV(Teich): 127 ml IVSs: 2.4 cm LVIDs: 2.5 cm LVPWs: 2.4 cm %IVS Thck: 70 % ESV(Teich): 23 ml EF(Teich): 82 % %FS: 51 % SV(Teich): 104 ml IVC: 22.50 mm LALs A4C: 5.6 cm LAAs A4C: 19.1 cm LAESV A-L A4C: 55 ml LAESV MOD A4C: 51 ml LALs A2C: 6.2 cm LAAs A2C: 25.8 cm LAESV A-L A2C: 92 ml LAESV MOD A2C: 87 ml LAESV(A-L): 74 ml LAESV Index (A-L): 36.11 ml/m Ao Diam: 3.0 cm (2.0 - 3.7) LA Diam: 4.1 cm (2.7 - 3.8) AV Cusp: 1.9 cm (1.5 - 2.6) EPSS: 0.8 cm MV E Carlos: 1.61 m/s MV DecT: 168 ms MV Dec Piute: 9.6 m/s MV A Carlos: 0.96 m/s MV E/A Ratio: 1.67 MV PHT: 49 ms MR Vmax: 5.76 m/s MR maxP.76 mmHg AV Vmax: 1.20 m/s AV maxP.80 mmHg AV Vmax: 1.34 m/s AV Vmean: 0.93 m/s AV maxP.21 mmHg AV meanP.98 mmHg AV Env.Ti: 281 ms AV VTI: 26.1 cm TR Vmax: 3.76 m/s TR maxP.65 mmHg RAP: 15.00 mmHg RVSP: 71.65 mmHg MV EF SLOPE: 132.90 mm/s (70 - 150) MV EXCURSION: 15.97 mm (> 18.000) FINDINGS -------- Sinus rhythm. This was a technically good study. The left ventricular size is normal. There is moderate concentric left ventricular hypertrophy. O verall left ventricular systolic function is normal with, an EF between 55 - 60 %. The right ventricle is normal in size. LA is moderately dilated 34-39 ml/m2 The right atrial size is normal. Interatrial and interventricular septum intact. Peak/mean gradient across the Aortic Valve is 7.21mmHg / 3.98mmHg. Normally functioning bioprosthet ic valve. The mitral valve leaflets are mildly thickened. Severe mitral regurgitation is present. Mild tricuspid regurgitation present. There is severe pulmonary hypertension. The right ventricul ar systolic pressure, as measured by Doppler, is 71.65mmHg. There is no pulmonic regurgitation present. The aortic root size is normal. The inferior vena cava is mildly dilated. There is no pericardial effusion. CONCLUSIONS -------- 1. Sinus rhythm. 2. This was a technically good study. 3. The left ventricular size is normal. 4. There is moderate concentric left ventricular hypertrophy. 5. Overall left ventricular systolic function is normal with, an EF between 55 - 60 %. 6. The right ventricle is normal in size. 7. LA is moderately dilated 34-39 ml/m2 8. The right atrial size is normal. 9. Interatrial and interventricular septum intact. 10. Peak/mean gradient across the Aortic Valve is 7.21mmHg / 3.98mmHg. 11. Normally functioning bioprosthetic valve. 12. The mitral valve leaflets are mildly thickened. 13. Severe mitral regurgitation is present. 14. Mild tricuspid regurgitation present. 15. There is severe pulmonary hypertension. 16. The right ventricular systolic pressure, as measured by Doppler, is 71.65mmHg. 17. There is no pulmonic regurgitation present. 18. The aortic root size is normal. 19. The inferior vena cava is mildly dilated. 20. There is no pericardial effusion. [employer] MACHINE: Nesha Garcia RDCS
[2019-02-16 20:47] LABS: Glucose,Whole Blood 181 mg/dL (75-99)
[2019-02-16] MEDS ORDERED: INSULIN DETEMIR (LEVEMIR) 100 UNIT/ML SYR SQ SCH (21:00)
[2019-02-16] MEDS: ASPIRIN 81 MG PO SCH (21:05)
[2019-02-16] MEDS: MELATONIN 5 MG TABLET PO SCH (21:05)
[2019-02-17] MEDS ORDERED: SODIUM CHLORIDE 0.65% NASAL SPRAY 44 ML BTL NASAL PRN (02:00)
[2019-02-17 02:01] LABS: Glucose,Whole Blood 126 mg/dL (75-99)
[2019-02-17 06:27] LABS: Glucose,Whole Blood 88 mg/dL (75-99)
[2019-02-17] MEDS: INSULIN ASPART (NovoLOG) 100 UNIT/ML VIAL SQ SCH ×2 (06:34→11:56)
[2019-02-17] MEDS: CARVEDILOL 6.25 MG TAB PO SCH (06:36)
[2019-02-17 07:23] LABS: Calcium 8.2 mg/dL (8.4-10.2); Potassium 4.1 mmol/L (3.5-5.1)
[2019-02-17] MEDS: FUROSEMIDE 40 MG TAB PO SCH (07:30)
--- NOTE | 2019-02-17 07:51 | XR ---
EXAMINATION TYPE: XR chest 1V DATE OF EXAM: 02/17/2019 HISTORY: CHF. REFERENCE: Previous study dated 02/14/2019. FINDINGS: There has been a midline sternotomy. The study is rotated. This lends increased opacity to the right lung base. There are pleural parenchymal changes present on the right. The heart is mildly enlarged. IMPRESSION: 1. ROTATED STUDY. 2. I CANNOT EXCLUDE SOME WORSENING RIGHT BASILAR AIRSPACE DISEASE.
[2019-02-17] MEDS: IPRATROPIUM-ALBUTEROL 3 ML NEB INHALATION SCH ×2 (08:01→11:30)
[2019-02-17] MEDS: clonazePAM 0.5 MG TAB PO SCH (08:16)
[2019-02-17] MEDS: amLODIPine 10 MG TAB PO SCH (08:17)
[2019-02-17] MEDS: ATORVASTATIN 40 MG TAB PO SCH (08:17)
[2019-02-17] MEDS: ISOSORBIDE MONONITRATE ER 30 MG TAB.ER.24H PO SCH (08:17)
[2019-02-17] MEDS: hydrALAZINE HCL 25 MG TAB PO SCH (08:17)
[2019-02-17] MEDS: CLOPIDOGREL 75 MG TAB PO SCH (08:17)
[2019-02-17] MEDS: VENLAFAXINE HCL ER 150 MG CAP PO SCH (08:17)
[2019-02-17] MEDS: APIXABAN 2.5 MG TABLET PO SCH (08:17)
--- NOTE | 2019-02-17 10:29 | P.PN ---
Subjective Progress Note Date: 02/17/19 This 88-year-old gentleman with multiple medical issues including severe mitral regurgitation, coronary artery disease and also aortic valve disease is admitted to the hospital with increasing shortness of breath. Patient responded well to IV diuretics. Overall is feeling better. Denies any chest pain. His creatinine has gone up slightly. We'll continue IV Lasix for one more day. Can switch to by mouth Lasix tomorrow. We'll review the echocardiogram. We'll also discuss with Dr. García 02/17: Repeat BUN is 15 creatinine 2.6. IV Lasix changed to oral Lasix at 40 mg every 8 hours. Patient states his breathing is stable today. He is complaining of a rough night due to a nosebleed that is currently controlled. Hydration and O2 oxygen therapy. Patient states he has ambulated without lightheadedness or dizziness. Heart rate is 72, blood pressure 148/66, pulse ox 94% on 2 L. We will clear patient for discharge. Objective - Vital Signs Vital signs: Vital Signs Temp 98.7 F 02/17/19 07:43 Pulse 72 02/17/19 08:11 Resp 18 02/17/19 07:43 BP 148/66 02/17/19 07:43 Pulse Ox 94 L 02/17/19 07:43 Intake & Output 02/16/19 02/17/19 02/17/19 18:59 06:59 18:59 Intake Total 720 480 Output Total 400 400 Balance 320 -400 480 Weight 86.5 kg Intake: Oral 720 480 Output: Urine 400 400 Other: Voiding Method Urinal # Voids 2 1 - Exam GENERAL EXAM: Patient is alert and oriented with no acute distress HEENT: Normocephalic. Normal reaction of pupils, equal size, normal range of extraocular motion. No erythema or exudates in the throat. NECK: No masses, no nuchal rigidity. CHEST: No chest wall deformity. LUNGS: Equal air entry with no crackles or wheeze. HEART: S1 and S2 normal with no audible mumurs or gallops. Regular rhythm, femorals equal on both sides.. ABDOMEN: No hepatosplenomegaly, normal bowel sounds, no guarding or rigidity. SKIN: No rashes CENTRAL NERVOUS SYSTEM: No focal deficits. EXTREMITIES: No cyanosis, clubbing or edema. - Labs CBC & Chem 7: 02/14/19 07:30 02/17/19 06:29 Labs: Abnormal Lab Results - Last 24 Hours (Table) 02/16/19 02/16/19 02/16/19 Range/Units 11:16 16:38 20:39 BUN (9-20) mg/dL Creatinine (0.66-1.25) mg/dL POC Glucose (mg/dL) 166 H 129 H 181 H (75-99) mg/dL Calcium (8.4-10.2) mg/dL 02/17/19 02/17/19 Range/Units 01:57 06:29 BUN 50 H (9-20) mg/dL Creatinine 2.60 H (0.66-1.25) mg/dL POC Glucose (mg/dL) 126 H (75-99) mg/dL Calcium 8.2 L (8.4-10.2) mg/dL Assessment and Plan Plan: (1) Acute combined systolic and diastolic heart failure Current Visit: Yes Status: Acute Code(s): I50.41 - ACUTE COMBINED SYSTOLIC AND DIASTOLIC (CONGESTIVE) HRT FAIL SNOMED Code(s): 402491229220606 (2) Chronic atrial fibrillation Current Visit: Yes Status: Acute Code(s): I48.2 - CHRONIC ATRIAL FIBRILLATION SNOMED Code(s): 277407504 (3) Ischemic heart disease Current Visit: Yes Status: Acute Code(s): I25.9 - CHRONIC ISCHEMIC HEART DISEASE, UNSPECIFIED SNOMED Code(s): 226590159 (4) Elevated troponin Current Visit: Yes Status: Acute Code(s): R74.8 - ABNORMAL LEVELS OF OTHER SERUM ENZYMES SNOMED Code(s): 140316704 (5) Severe mitral regurgitation Current Visit: Yes Status: Acute Code(s): I34.0 - NONRHEUMATIC MITRAL (V ALVE) INSUFFICIENCY SNOMED Code(s): 37340847 Plan: Patient overall seems to be clinically stable. He is in recliner and appears comfortable at this time. Continue oral Lasix. Patient is cleared from cardiology for discharge home and follow up with Dr. Capps. Nurse practitioner note has been reviewed, I agree with the document and finding s and plan of care. Patient has been seen and examined.
[2019-02-17 11:27] VITALS: BP 158/69; RESP 16; TEMP 98.5
[2019-02-17 11:43] VITALS: PULSE 76
--- NOTE | 2019-02-17 11:51 | P.DS ---
Providers Date of admission: 02/17/19 08:22 Attending physician: Itz Bob MD Consults: 02/14/19 11:00 Consult Physician Routine Consulting Provider: Ronnie Capps Consult Reason/Comments: chf exacerbation Do you want consulting provider notified?: Yes Primary care physician: Minda Marquez [facility] Course: Patient was admitted for CHF exacerbation patient has significant clinical improvement no JVD and no peripheral edema patient was evaluated cardiology recommending one more days of IV Lasix possibility of discharge tomorrow serum creatinine remained fairly stable mildly elevated. 02/16/2019 Patient is fairly doing okay patient is fairly euvolemic bit short of breath when he lays down because of that in spite of her is increased creatinine good and continue with Lasix possibility of discharge tomorrow. 02/17/2019 Patient is doing well will be discharged today his neck not requiring any home oxygen. PHYSICAL EXAMINATION: GENERAL: The patient is alert and oriented x3, not in any acute distress. Well developed, well nourished. HEENT: Pupils are round and equally reacting to light. EOMI. No scleral icterus. No conjunctival pallor. Normocephalic, atraumatic. No pharyngeal erythema. No thyromegaly. CARDIOVASCULAR: S1 and S2 present. No rubs, or gallops. There is a diastolic murmur in the mitral area PULMONARY: Chest is clear to auscultation, no wheezing or crackles. ABDOMEN: Soft, nontender, nondistended, normoactive bowel sounds. No palpable organomegaly. MUSCULOSKELETAL: No joint swelling or deformity. EXTREMITIES: No cyanosis, clubbing, or pedal edema. NEUROLOGICAL: Gross neurological examination did not reveal any focal deficits. SKIN: No rashes. 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 fib presently rate controlled continue with anti-coagulation -COPD without any acute exacerbation -I aortic valvular disease status post replacement of this valve in the past -Depression Patient Condition at Discharge: Fair Plan - Discharge Summary Discharge Rx Participant: No New Discharge Prescriptions: New Insulin Detemir (Levemir) [Levemir] 30 unit SQ HS syr Continue amLODIPine [Norvasc] 10 mg PO DAILY Clopidogrel [Plavix] 75 mg PO DAILY Carvedilol [Coreg] 6.25 mg PO BID Atorvastatin [Lipitor] 40 mg PO DAILY Venlafaxine HCl ER [Effexor XR] 150 mg PO DAILY Cyanocobalamin [Vitamin B-12] 500 mcg PO HS Aspirin EC [Ecotrin Low Dose] 81 mg PO HS Allopurinol [Zyloprim] 300 mg PO HS L.acidoph,Paracasei, B.lactis [Probiotic] 1 cap PO DAILY Calcitriol 0.5 mcg PO TUSA Ergocalciferol (Vitamin D2) [Vitamin D2] 50,000 unit PO Q14D clonazePAM [KlonoPIN] 0.25 mg PO BID #6 tablet hydrALAZINE HCL [Apresoline] 75 mg PO TID #90 tab Apixaban [Eliquis] 2.5 mg PO BID #60 tab Isosorbide Mononitrate ER [Imdur] 30 mg PO DAILY #30 tab Nitroglycerin Sl Tabs [Nitrostat] 0.4 mg SUBLINGUAL Q5M PRN #25 tab PRN Reason: Angina Ipratropium-Albuterol Nebulize [Duoneb 0.5 mg-3 mg/3 ml Soln] 3 ml INHALATION RT-TID Changed Torsemide [Demadex] 20 mg PO BID #30 tablet Discontinued Hyoscyamine Sulfate [Levbid] 0.375 mg PO BID Insulin Lispro [humaLOG Kwikpen] 6 unit SQ AC-TID #0 Insulin Glargine,Hum.rec.anlog [Lantus Solostar] 36 unit SQ HS #0 Discharge Medication List Allopurinol [Zyloprim] 300 mg PO HS 01/08/19 [History] Aspirin EC [Ecotrin Low Dose] 81 mg PO HS 01/08/19 [History] Atorvastatin [Lipitor] 40 mg PO DAILY 01/08/19 [History] Calcitriol 0.5 mcg PO TUSA 01/08/19 [History] Carvedilol [Coreg] 6.25 mg PO BID 01/08/19 [History] Clopidogrel [Plavix] 75 mg PO DAILY 01/08/19 [History] Cyanocobalamin [Vitamin B-12] 500 mcg PO HS 01/08/19 [History] Ergocalciferol (Vitamin D2) [Vitamin D2] 50,000 unit PO Q14D 01/08/19 [History] L.acidoph,Paracasei, B.lactis [Probiotic] 1 cap PO DAILY 01/08/19 [History] Venlafaxine HCl ER [Effexor XR] 150 mg PO DAILY 01/08/19 [History] amLODIPine [Norvasc] 10 mg PO DAILY 01/08/19 [History] clonazePAM [KlonoPIN] 0.25 mg PO BID #6 tablet 01/21/19 [Rx] Apixaban [Eliquis] 2.5 mg PO BID #60 tab 01/22/19 [Rx] Isosorbide Mononitrate ER [Imdur] 30 mg PO DAILY #30 tab 01/22/19 [Rx] Nitroglycerin Sl Tabs [Nitrostat] 0.4 mg SUBLINGUAL Q5M PRN #25 tab 01/22/19 [Rx] hydrALAZINE HCL [Apresoline] 75 mg PO TID #90 tab 01/22/19 [Rx] Ipratropium-Albuterol Nebulize [Duoneb 0.5 mg-3 mg/3 ml Soln] 3 ml INHALATION RT-TID 02/14/19 [History] Torsemide [Demadex] 20 mg PO BID #30 tablet 02/16/19 [Rx] Insulin Detemir (Levemir) [Levemir] 30 unit SQ HS syr 02/17/19 [Rx] Follow up Appointment(s)/Referral(s): Ronnie Capps MD [STAFF PHYSICIAN] - 1 Week (offices closed, please call monday to make a follow up appointment) Ghassan Kimble DO [Doctor of Osteopathic Medicine] - 03/06/19 1:45 pm (Previously scheduled appointment) None,Stated [REFERRING] - 1-2 days Patient Instructions/Handouts: Heart Failure (DC) Discharge Disposition: HOME WITH HOME HEALTH SERVICES
== END 2019-02-17 12:12 | disposition home health service (06) | DRG 291 ==
LOC: EC 07:14 → 3SCARD 11:00 → OBSVTOIN 02-17 08:22
PROVIDERS: ADMIT Internal Medicine; ATTEND Internal Medicine
DX: I13.0 Hypertensive heart and chronic kidney disease with heart failure and stage 1 through stage 4 chronic kidney disease, or unspecified chronic kidney disease (principal); I50.23 Acute on chronic systolic (congestive) heart failure; N18.4 Chronic kidney disease, stage 4 (severe); E11.22 Type 2 diabetes mellitus with diabetic chronic kidney disease; I48.2 Chronic atrial fibrillation; F32.9 Major depressive disorder, single episode, unspecified; J44.9 Chronic obstructive pulmonary disease, unspecified; I08.1 Rheumatic disorders of both mitral and tricuspid valves; I25.10 Atherosclerotic heart disease of native coronary artery without angina pectoris; M10.9 Gout, unspecified; I44.7 Left bundle-branch block, unspecified; Z95.5 Presence of coronary angioplasty implant and graft; I25.2 Old myocardial infarction; Z90.49 Acquired absence of other specified parts of digestive tract; Z87.891 Personal history of nicotine dependence; Z79.01 Long term (current) use of anticoagulants; Z79.02 Long term (current) use of antithrombotics/antiplatelets; Z79.4 Long term (current) use of insulin; Z79.899 Other long term (current) drug therapy; Z86.73 Personal history of transient ischemic attack (TIA), and cerebral infarction without residual deficits; Z95.1 Presence of aortocoronary bypass graft; Z98.42 Cataract extraction status, left eye; Z98.41 Cataract extraction status, right eye; Z95.2 Presence of prosthetic heart valve; Z82.49 Family history of ischemic heart disease and other diseases of the circulatory system; Z83.3 Family history of diabetes mellitus
CPT/HCPCS: 36415; 71045; 71046; 80048; 82553; 83605; 83735; 83880; 84484; 85025; 85610; 93005; 93306; 94640; 94760; 96374; 99285

== ENCOUNTER 2019-03-01 08:50 | Inpatient (IN) | payer MEDICARE ==
[2019-03-01] MEDS ORDERED: PANTOPRAZOLE 40 MG/10 ML VIAL IVP STA (09:03)
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
[2019-03-01 10:11] LABS: Albumin 3.8 g/dL (3.5-5.0); Calcium 8.7 mg/dL (8.4-10.2); Magnesium 2.5 mg/dL (1.6-2.3); Partial Thromboplastin Time 26.8 sec (22.0-30.0); Potassium 4.4 mmol/L (3.5-5.1); Prothrombin Time 10.7 sec (9.0-12.0); Total Bilirubin 0.5 mg/dL (0.2-1.3); Total Protein 6.4 g/dL (6.3-8.2)
[2019-03-01 10:14] LABS: Basophils # (A) 0.1 k/uL (0-0.2); Basophils % (A) 1 %; Eosinophils # (A) 0.4 k/uL (0-0.7); Eosinophils % (A) 5 %; HCT 30.7 % (39.0-53.0); HGB 10.1 gm/dL (13.0-17.5); Lymphocytes # (A) 0.6 k/uL (1.0-4.8); Lymphocytes % (A) 7 %; MCH 33.5 pg (25.0-35.0); MCV 101.6 fL (80.0-100.0); Macrocytosis Slight; Mean Platelet Volume 8.6; Monocytes # (A) 0.5 k/uL (0-1.0); Monocytes % (A) 6 %; Neutrophils # (A) 6.9 k/uL (1.3-7.7); Neutrophils % (A) 80 %; Platelet Count 358 k/uL (150-450); RBC 3.02 m/uL (4.30-5.90); RDW 14.8 % (11.5-15.5); WBC 8.7 k/uL (3.8-10.6)
--- NOTE | 2019-03-01 10:46 | CT ---
EXAMINATION TYPE: CT abdomen pelvis wo con DATE OF EXAM: 03/01/2019 COMPARISON: None HISTORY: RLQ pain, rectal bleeding CT DLP: 590 mGycm Examination of the solid and hollow viscera is limited given the lack of contrast. FINDINGS: LUNG BASES: Basilar pulmonary nodules with associated pleural thickening. Pleural-based calcification noted. Cardiomegaly with coronary artery calcification. LIVER/GB: Small gallstones noted. No space-occupying hepatic lesion. PANCREAS: No pancreatic mass identified. No inflammatory process seen. SPLEEN: No evidence for splenomegaly. No intrasplenic lesions seen. ADRENALS: No adrenal nodules identified. No evidence for thickening. KIDNEYS: Simple cyst midpole left kidney medially measures 1.8 cm. Hyperdense nodule seen posteriorly mid pole of the right kidney measures 6 mm and may reflect a hemorrhagic or proteinaceous cyst. No n ephrolithiasis. No hydronephrosis. BOWEL: Appendix has a normal appearance. Severe diverticulosis of the sigmoid colon without diverticu litis. No evidence of bowel obstruction. No inflammatory process. Lymph nodes: No evidence for adenopathy greater than 1 cm. Abdominal aorta: Atheromatous changes seen. No evidence for aneurysm. Genital organs: No significant abnormality. Other: No significant abnormality. IMPRESSION: 1. No distinct abnormality to account for the patient's symptoms. Severe sigmoid diverticulosis witho ut diverticulitis. 2. Pulmonary basilar nodularity. Dated CT of the thighs. 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
[2019-03-01] MEDS ORDERED: NALOXONE 0.4 MG/ML 1 ML VIAL IV PRN (11:43)
[2019-03-01] MEDS ORDERED: HYDROmorphone 0.5 MG/0.5 ML SYRINGE IVP PRN (11:43)
[2019-03-01 14:32] VITALS: BMI 26.5
[2019-03-01] MEDS: SODIUM CHLORIDE 0.9% 1,000 ML IV SCH (14:36)
[2019-03-01] MEDS ORDERED: NITROGLYCERIN SL TABS 0.4 MG TAB SUBLINGUAL PRN (16:10)
[2019-03-01 16:45] LABS: Glucose,Whole Blood 115 mg/dL (75-99)
[2019-03-01] MEDS: CARVEDILOL 6.25 MG TAB PO SCH (17:49)
[2019-03-01] MEDS: clonazePAM 0.5 MG TAB PO SCH (20:06)
[2019-03-01] MEDS: ALLOPURINOL 300 MG TAB PO SCH (20:06)
[2019-03-01] MEDS: CYANOCOBALAMIN 500 MCG TAB PO SCH (20:06)
[2019-03-01] MEDS: hydrALAZINE HCL 25 MG TAB PO SCH (20:06)
[2019-03-01 20:36] LABS: Glucose,Whole Blood 141 mg/dL (75-99)
[2019-03-01] MEDS: IPRATROPIUM-ALBUTEROL 3 ML NEB INHALATION SCH (20:59)
[2019-03-01] MEDS: INSULIN DETEMIR (LEVEMIR) 100 UNIT/ML SYR SQ SCH (21:03)
[2019-03-02 01:37] LABS: Calcium 8.7 mg/dL (8.4-10.2); Magnesium 2.5 mg/dL (1.6-2.3); Potassium 3.8 mmol/L (3.5-5.1)
[2019-03-02] MEDS ORDERED: AMIODARONE 360 MG in DEXTROSE 5% IN WATER 200 ML IV ONE ×2 (02:30)
[2019-03-02 06:02] LABS: Glucose,Whole Blood 62 mg/dL (75-99)
[2019-03-02] MEDS: CARVEDILOL 6.25 MG TAB PO SCH ×2 (06:22→17:20)
[2019-03-02 06:26] LABS: Glucose,Whole Blood 76 mg/dL (75-99)
[2019-03-02 07:11] LABS: Basophils % (A) 1 %; Eosinophils # (A) 0.5 k/uL (0-0.7); Eosinophils % (A) 6 %; HCT 29.9 % (39.0-53.0); HGB 9.5 gm/dL (13.0-17.5); Hypochromasia Slight; Lymphocytes # (A) 0.6 k/uL (1.0-4.8); Lymphocytes % (A) 7 %; MCH 33.1 pg (25.0-35.0); MCHC 31.6 g/dL (31.0-37.0); MCV 104.6 fL (80.0-100.0); Macrocytosis Slight; Mean Platelet Volume 8.3; Monocytes # (A) 0.5 k/uL (0-1.0); Monocytes % (A) 6 %; Neutrophils # (A) 6.5 k/uL (1.3-7.7); Neutrophils % (A) 78 %; Platelet Count 327 k/uL (150-450); RBC 2.86 m/uL (4.30-5.90); RDW 13.6 % (11.5-15.5); WBC 8.4 k/uL (3.8-10.6)
[2019-03-02 07:30] LABS: Albumin 3.3 g/dL (3.5-5.0); Calcium 8.7 mg/dL (8.4-10.2); Potassium 4.1 mmol/L (3.5-5.1); Total Bilirubin 0.4 mg/dL (0.2-1.3); Total Protein 5.8 g/dL (6.3-8.2)
[2019-03-02] MEDS ORDERED: AMIODARONE 300 MG in DEXTROSE 5% IN WATER 250 ML IV SCH ×2 (08:30)
[2019-03-02] MEDS: IPRATROPIUM-ALBUTEROL 3 ML NEB INHALATION SCH ×3 (08:49→20:12)
[2019-03-02] MEDS: CALCITRIOL 0.25 MCG CAP PO SCH (10:14)
[2019-03-02] MEDS: ISOSORBIDE MONONITRATE ER 30 MG TAB.ER.24H PO SCH (10:14)
[2019-03-02] MEDS: hydrALAZINE HCL 25 MG TAB PO SCH ×3 (10:14→21:00)
[2019-03-02] MEDS: amLODIPine 10 MG TAB PO SCH (10:14)
[2019-03-02] MEDS: clonazePAM 0.5 MG TAB PO SCH ×2 (10:14→21:00)
[2019-03-02] MEDS: VENLAFAXINE HCL ER 150 MG CAP PO SCH (10:15)
[2019-03-02] MEDS: ATORVASTATIN 40 MG TAB PO SCH (10:15)
[2019-03-02] MEDS: PANTOPRAZOLE 40 MG/10 ML VIAL IV SCH (10:16)
[2019-03-02] MEDS: CLOPIDOGREL 75 MG TAB PO SCH (10:31)
[2019-03-02 12:01] LABS: Glucose,Whole Blood 123 mg/dL (75-99)
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
--- NOTE | 2019-03-02 13:26 | CONS ---
CONSULTATION DATE OF DICTATION: March 02, 2019. REASON FOR CONSULTATION: Acute lower GI bleed. HISTORY OF PRESENT ILLNESS: The patient is a 88-year-old pleasant white male admitted to the hospital with multiple episodes of bright red blood per rectum that started about 2 days ago. He had about 2 episodes at home and yesterday afternoon he had significant amount of large bowel movements with blood clots. Came to the emergency room and subsequently admitted to the hospital for further evaluation. He was also complaining of some mild right lower quadrant abdominal pain for the last 2 days duration. The patient has history of coronary artery disease and atrial fibrillation, has been on aspirin, Plavix, and Eliquis. The last dose was yesterday. Since being in the hospital, did not have any further episodes of bleeding. This morning, abdominal pain has improved. No nausea, vomiting. No fever, chills, night sweats. Last colonoscopy was more than 10 years ago and he does not recall the results. PAST MEDICAL HISTORY: Significant for coronary artery disease, atrial fibrillation, hypertension, hyperlipidemia. MEDICATIONS: At home Zyloprim, aspirin, Lipitor, Coreg, Plavix, Eliquis, Effexor, albuterol. ALLERGIES: SULFA. PAST SURGICAL HISTORY: Cardiac valve replacement. Tonsillectomy and adenoidectomy. Cardiac cath with stent placement, inguinal hernia repair, bilateral cataract surgery. SOCIAL HISTORY: No smoking. No alcohol use. FAMILY HISTORY: Father coronary artery disease. Mother has diabetes mellitus. REVIEW OF SYSTEMS: Cardiopulmonary: No chest pain, shortness of breath. Genitourinary: No dysuria or hematuria. Musculoskeletal unremarkable. Skin unremarkable. Endocrine unremarkable. Psychiatric unremarkable. Neurology unremarkable. ENT vision unremarkable. Constitutional: No recent weight loss. No fever, chills, night sweats. PHYSICAL EXAMINATION: Blood pressure 136/67, pulse 55, temperature 98.2. HEENT examination unremarkable. Conjunctivae pink. Sclerae anicteric. Oral cavity no lesions. NECK no JVD or lymph node enlargement. CHEST was clear to auscultation. HEART: Regular rate and rhythm. ABDOMEN: Soft. Bowel sounds are positive. No organomegaly. EXTREMITIES no pedal edema. SKIN no rashes. NEURO: He is alert and oriented x3. No focal deficits. CT scan of the abdomen and pelvis done in the emergency room yesterday shows severe sigmoid diverticulosis with no evidence of diverticulitis and pulmonary basilar nodularity. Labs done at the time of admission to the hospital: WBC 8.7, hemoglobin 10.1. Today hemoglobin is 9.5, platelets are normal. BUN 56, creatinine 2.56. IMPRESSION: 1. Acute lower gastrointestinal bleed possibly diverticular in etiology. The patient had multiple episodes of bright red blood per rectum that started 2 days ago and the last time was about 12 hours ago. He is hemodynamically stable. Hemoglobin dropped by 1 gram since admission to the hospital. Last colonoscopy was more than 10 years ago. 2. Coronary artery disease status post stent placement in the past/atrial fibrillation on aspirin, Plavix, and Eliquis. Last dose was yesterday. 3. History of aortic valve replacement in the past. RECOMMENDATIONS: 1. Continue with a clear liquid diet. 2. Hold anticoagulation. 3. CBC on a daily basis. 4. We will consider colonoscopy during this hospitalization, possibly on Monday. Discussed with the patient and he is agreeable with the plan. Thank you for this consultation. ISABELLAL / IJN: [id number] /
[2019-03-02] MEDS: SODIUM CHLORIDE 0.9% 1,000 ML IV SCH (15:38)
[2019-03-02 17:00] LABS: Glucose,Whole Blood 120 mg/dL (75-99)
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
[2019-03-02] MEDS: TORSEMIDE 20 MG TAB PO SCH (18:27)
[2019-03-02 20:39] LABS: Glucose,Whole Blood 130 mg/dL (75-99)
[2019-03-02] MEDS: guaiFENesin 600 MG TABLET.ER PO SCH (20:59)
[2019-03-02] MEDS: CYANOCOBALAMIN 500 MCG TAB PO SCH (21:00)
[2019-03-02] MEDS: ALLOPURINOL 300 MG TAB PO SCH (21:00)
[2019-03-02] MEDS: INSULIN DETEMIR (LEVEMIR) 100 UNIT/ML SYR SQ SCH (22:20)
[2019-03-03] MEDS: CARVEDILOL 6.25 MG TAB PO SCH ×2 (06:20→16:35)
[2019-03-03 06:27] LABS: Glucose,Whole Blood 94 mg/dL (75-99)
[2019-03-03 06:47] LABS: Basophils % (A) 0 %; Eosinophils # (A) 0.2 k/uL (0-0.7); Eosinophils % (A) 2 %; HCT 27.7 % (39.0-53.0); HGB 8.9 gm/dL (13.0-17.5); Lymphocytes # (A) 0.6 k/uL (1.0-4.8); Lymphocytes % (A) 5 %; MCH 32.7 pg (25.0-35.0); MCHC 31.9 g/dL (31.0-37.0); MCV 102.4 fL (80.0-100.0); Macrocytosis Slight; Monocytes # (A) 0.8 k/uL (0-1.0); Monocytes % (A) 7 %; Neutrophils # (A) 9.5 k/uL (1.3-7.7); Neutrophils % (A) 84 %; Platelet Count 296 k/uL (150-450); RBC 2.71 m/uL (4.30-5.90); RDW 13.7 % (11.5-15.5); WBC 11.3 k/uL (3.8-10.6)
[2019-03-03 06:59] LABS: Calcium 8.7 mg/dL (8.4-10.2); Potassium 4.1 mmol/L (3.5-5.1)
[2019-03-03] MEDS: IPRATROPIUM-ALBUTEROL 3 ML NEB INHALATION SCH ×3 (07:44→20:01)
[2019-03-03] MEDS: PANTOPRAZOLE 40 MG/10 ML VIAL IV SCH (09:57)
[2019-03-03] MEDS: guaiFENesin 600 MG TABLET.ER PO SCH ×2 (09:58→21:03)
[2019-03-03] MEDS: hydrALAZINE HCL 25 MG TAB PO SCH ×3 (09:58→21:03)
[2019-03-03] MEDS: amLODIPine 10 MG TAB PO SCH (09:58)
[2019-03-03] MEDS: CLOPIDOGREL 75 MG TAB PO SCH (09:58)
[2019-03-03] MEDS: ATORVASTATIN 40 MG TAB PO SCH (09:59)
[2019-03-03] MEDS: VENLAFAXINE HCL ER 150 MG CAP PO SCH (09:59)
[2019-03-03] MEDS: TORSEMIDE 20 MG TAB PO SCH ×2 (09:59→16:35)
[2019-03-03] MEDS: clonazePAM 0.5 MG TAB PO SCH ×2 (09:59→21:02)
[2019-03-03] MEDS: ISOSORBIDE MONONITRATE ER 30 MG TAB.ER.24H PO SCH (09:59)
--- NOTE | 2019-03-03 10:35 | PN ---
PROGRESS NOTE DATE OF SERVICE: March 03, 2019 Patient is an 88-year-old pleasant white male admitted to hospital with rectal bleeding with clots for 2 days duration. He dropped his hemoglobin from 10.1-8.9 g/dL. He has been on Eliquis for atrial fibrillation which has been on hold, coronary artery disease with stent placement. Aspirin and Plavix have been on hold, but Plavix was resumed yesterday. The patient denies any further episodes of rectal bleeding for the last 24 hours. He denies any abdominal pain. No nausea, vomiting. PHYSICAL EXAMINATION: Appears comfortable. No apparent distress. VITAL SIGNS: Stable. Blood pressure is 137/52, pulse rate 72, temperature 98.5. HEENT examination unremarkable. Conjunctivae pink. Sclerae anicteric. Oral cavity no lesions. NECK: No JVD or lymph node enlargement. CHEST: Clear to auscultation. HEART: Regular rate and rhythm. ABDOMEN: Soft. Bowel sounds are positive. No organomegaly. EXTREMITIES: No pedal edema. SKIN no rashes. NEUROLOGIC: Alert and oriented x3. No focal deficits. LABS: From today, WBC 11.3, hemoglobin 8.9, platelets are normal. Basic metabolic panel is within normal limits. BUN is 45 and creatinine 2.45. IMPRESSION: 1. Rectal bleeding of 2 days duration, dropped hemoglobin from 10.1-8.9 g/dL. 2. Atrial fibrillation on Eliquis on hold for 2 days. 3. Coronary artery disease status post stent placement a few months ago on aspirin and Plavix which were on hold for the last 2 days, but Plavix was resumed today. RECOMMENDATIONS: Discussed with the patient at great length. At this time, we will proceed with a colonoscopy to investigate this further. He understands the risks, benefits, and complications of procedure. Thank you for this consultation. MMODL / IJN: [id number] /
[2019-03-03 11:48] LABS: Glucose,Whole Blood 88 mg/dL (75-99)
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
[2019-03-03 16:47] LABS: Glucose,Whole Blood 100 mg/dL (75-99)
[2019-03-03] MEDS ORDERED: PEG 3350-NA SULF,BICARB,CL/KCL 4,000 ML BOTTLE PO ONE (17:00)
[2019-03-03] MEDS: SODIUM CHLORIDE 0.9% 1,000 ML IV SCH (20:48)
[2019-03-03] MEDS: INSULIN DETEMIR (LEVEMIR) 100 UNIT/ML SYR SQ SCH (21:02)
[2019-03-03] MEDS: CYANOCOBALAMIN 500 MCG TAB PO SCH (21:03)
[2019-03-03] MEDS: ALLOPURINOL 300 MG TAB PO SCH (21:06)
[2019-03-03 21:46] LABS: Glucose,Whole Blood 136 mg/dL (75-99)
--- NOTE | 2019-03-03 22:49 | P.PN ---
Progress Note - Text Progress Note Date: 03/03/19 Chief Complaint: Bright red blood per rectum History of presenting complaint: This is a 88-year-old patient of Dr. Minda rosas. Chronic stable medical conditions include recent acute MA in January of this year, CHF 40-45%, severe mitral regurgitation, diabetes, hypertension, poorly kidney disease stage III, with diabetic nephropathy and nephrosclerosis, COPD, anxiety depression,. Patient for 2 days has been having bright red blood per rectum intermittently intermittently. No abdominal pain. No dizziness no lightheadedness or chest pain. She's had some slight abdominal discomfort. No prior GI bleed. Both cardiology and GI were consulted. Patient does feel a bit tired and rundown. Today-no further lower GI bleeding. Sitting up. No dizziness or lightheadedness. Colonoscopy tomorrow. Daughter is present Review of systems: Was done for constitutional, cardiovascular, GI, pulmonary. relevant finding as above Current medications reviewed that included: Antiplatelet agents were held Physical examination: VITAL SIGNS: 97.9, 57, 18, 130/65, 92% on 2 L GENERAL: Sitting at the edge of the bed, comfortable. EYES: [Pupils equal. Conjunctiva a bit pale l. HEENT: External appearance of nose and ears normal, oral cavity grossly normal. NECK: JVD not raised; masses not palpable. HEART: First and second heart sounds are normal; no edema. LUNGS: Respiratory rate normal; decreased breath sounds. ABDOMEN: Soft, nontender, liver spleen not palpable, no masses palpable. PSYCH: Alert and oriented x3; mood and affect normal. Investigations, reviewed in the clinical context: White count 11.3, hemoglobin 8.9, blood urea nitrogen 45, creatinine 2.45 Renal function "on February 17 was 50/2.60 Assessment: -Acute GI bleed with bright red blood per rectum in a patient whose medications include eliquis , Plavix, aspirin. 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 Awaiting colonoscopy tomorrow. Care was discussed with the patient and the daughter.
[2019-03-04 05:54] LABS: Glucose,Whole Blood 123 mg/dL (75-99)
[2019-03-04] MEDS: CARVEDILOL 6.25 MG TAB PO SCH ×2 (06:25→13:03)
[2019-03-04] MEDS: IPRATROPIUM-ALBUTEROL 3 ML NEB INHALATION SCH ×3 (07:03→20:09)
[2019-03-04 08:17] LABS: Calcium 8.6 mg/dL (8.4-10.2); Potassium 3.9 mmol/L (3.5-5.1)
--- NOTE | 2019-03-04 10:47 | P.PN ---
Subjective Very pleasant 88-year-old gentleman with a past medical history significant for recent stent in January 2019 to the circumflex artery on Plavix, aspirin and eliquis is admitted for GI bleed. Patient awaiting colonoscopy. He endorses no more episodes of GI bleed. She had a bowel movement this morning with no blood. No chest pain racing heart, no cough no shortness of breath, no abdominal pain, he had nausea vomiting because of the colonoscopy prep. Objective - Vital Signs Vital signs: Vital Signs Temp 97.7 F 03/04/19 08:00 Pulse 62 03/04/19 08:00 Resp 18 03/04/19 08:00 BP 131/79 03/04/19 08:00 Pulse Ox 94 L 03/04/19 08:00 Intake & Output 03/03/19 03/04/19 03/04/19 18:59 06:59 18:59 Intake Total 2540 700 Output Total 3 Balance 2537 700 Intake: Intake, IV Titration 160 Amount Sodium Chloride 0.9% 1, 160 000 ml @ 20 mls/hr IV . Q24H [facility] Rx#:[id number] Oral 2380 700 Output: Urine 3 Other: Voiding Method Bedside Commode # Voids 1 - Exam On exam, alert and oriented x3. HEENT: Conjunctivae normal. eyes normal. NECK: No JVD. No thyroid enlargement. No LNs CARDIOVASCULAR: S1-S2 positive RESPIRATION: Breath sounds diminished in the bases. No rhonchi or crackles. No bronchial breathing. ABDOMEN: Soft, nontender . No guarding. no masses palpable. No ascites, No hepatosplenomegaly.Bowel sounds heard. LEGS: No edema. no swelling NERVOUS SYSTEM: Cranial N 2-12 grossly normal. Moves all 4 limbs. No focal deficits. No sensory deficit. No signs of cerebellar dysfucntion. Skin: no ulcer no rash - Labs CBC & Chem 7: 03/03/19 05:58 03/04/19 07:28 Labs: Abnormal Lab Results - Last 24 Hours (Table) 03/03/19 03/03/19 03/04/19 Range/Units 16:46 21:45 05:53 Sodium (137-145) mmol/L BUN (9-20) mg/dL Creatinine (0.66-1.25) mg/dL Glucose (74-99) mg/dL POC Glucose (mg/dL) 100 H 136 H 123 H (75-99) mg/dL 03/04/19 Range/Units 07:28 Sodium 136 L (137-145) mmol/L BUN 45 H (9-20) mg/dL Creatinine 2.51 H (0.66-1.25) mg/dL Glucose 108 H (74-99) mg/dL POC Glucose (mg/dL) (75-99) mg/dL Assessment and Plan Assessment: - GI bleed - Anemia due to blood loss - CAD status post stent in the circumflex artery in January 2019 - History of A. fib on any questions - CHF with ejection fraction 40-45% - History of mitral regurgitation - Diabetes mellitus - C KD - COPD -Hypertension - Anxiety and depression Plan - Patient nothing by mouth and awaiting colonoscopy - Patient continued on Plavix. Aspirin and eliquis on hold - Continue rest of the medical care - We'll order for CBC to monitor hemoglobin - We'll continue to follow the patient
[2019-03-04 11:58] LABS: HCT 27.6 % (39.0-53.0); HGB 8.7 gm/dL (13.0-17.5); Hypochromasia Slight; MCH 32.5 pg (25.0-35.0); MCHC 31.6 g/dL (31.0-37.0); MCV 102.8 fL (80.0-100.0); Macrocytosis Slight; Mean Platelet Volume 7.9; Platelet Count 314 k/uL (150-450); RBC 2.68 m/uL (4.30-5.90); RDW 13.7 % (11.5-15.5)
[2019-03-04] MEDS ORDERED: PROPOFOL 10 MG/ML 20 ML VIAL IV ONE (12:17)
[2019-03-04] MEDS ORDERED: LIDOCAINE 1% INJ 10MG/ML (20 ML MDV) ONE (12:17)
[2019-03-04] MEDS ORDERED: LACTATED RINGERS 1,000 ML IV ONE (12:18)
--- NOTE | 2019-03-04 12:45 | P.PCN ---
Date of Procedure: 03/04/19 Procedure(s) Performed: BRIEF HISTORY: Patient is a 88-year-old pleasant male, scheduled for an elective colonoscopy as a part of a evaluation of acute lower GI bleed. He was an elective basis has been on hold for the last 2 days. Had several episodes of bright red blood per rectum with clots. Denies any abdominal pain. PROCEDURE PERFORMED: Colonoscopy. PREOPERATIVE DIAGNOSIS: Acute lower GI bleed. IV sedation per Anesthesia. PROCEDURE: After informed consent was obtained, the patient, was brought into the endoscopy unit. IV sedation was administered by Anesthesia under continuous monitoring. Digital rectal examination was normal. Initially the Olympus CF-160 flexible video colonoscope was then inserted in the rectum, gradually advanced into the cecum without any difficulty. Careful examination was performed as the scope was gradually being withdrawn. Ileocecal valve and the appendiceal orifice were visualized and appeared normal. Prep was poor and several areas of the colon.. Mucosa of the cecum, ascending colon, transverse colon, descending colon, sigmoid colon, and rectum appeared normal. Moderate sigmoidal diverticulosis seen. Retroflexion was performed in the rectum and grade 2 internal hemorrhoids were seen. The patient tolerated the procedure well. IMPRESSION: Normal-appearing colon from rectum to cecum no evidence of colitis or colorectal neoplasia. Moderate sigmoid diverticulosis. Grade 2 internal hemorrhoids. RECOMMENDATIONS: Findings of this examination were discussed with the patient as well as his family. Recent lower GI bleed most likely hemorrhoidal in nature. Patient was advised to avoid straining and constipation. Resume anticoagulation today..
[2019-03-04] MEDS: PANTOPRAZOLE 40 MG/10 ML VIAL IV SCH (13:01)
[2019-03-04] MEDS: TORSEMIDE 20 MG TAB PO SCH ×2 (13:02→16:23)
[2019-03-04] MEDS: ISOSORBIDE MONONITRATE ER 30 MG TAB.ER.24H PO SCH (13:02)
[2019-03-04] MEDS: ATORVASTATIN 40 MG TAB PO SCH (13:02)
[2019-03-04] MEDS: hydrALAZINE HCL 25 MG TAB PO SCH ×3 (13:02→20:10)
[2019-03-04] MEDS: CLOPIDOGREL 75 MG TAB PO SCH (13:02)
[2019-03-04] MEDS: guaiFENesin 600 MG TABLET.ER PO SCH ×2 (13:03→20:10)
[2019-03-04] MEDS: VENLAFAXINE HCL ER 150 MG CAP PO SCH (13:03)
[2019-03-04] MEDS: amLODIPine 10 MG TAB PO SCH (13:03)
[2019-03-04] MEDS: SODIUM CHLORIDE 0.9% 1,000 ML IV SCH (13:16)
[2019-03-04] MEDS: clonazePAM 0.5 MG TAB PO SCH ×2 (13:16→20:10)
[2019-03-04 17:05] LABS: Glucose,Whole Blood 128 mg/dL (75-99)
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
[2019-03-04] MEDS: CYANOCOBALAMIN 500 MCG TAB PO SCH (20:10)
[2019-03-04] MEDS: ALLOPURINOL 300 MG TAB PO SCH (20:10)
[2019-03-04 21:18] LABS: Glucose,Whole Blood 198 mg/dL (75-99)
[2019-03-04] MEDS: INSULIN DETEMIR (LEVEMIR) 100 UNIT/ML SYR SQ SCH (21:22)
[2019-03-05 06:11] LABS: Glucose,Whole Blood 81 mg/dL (75-99)
[2019-03-05] MEDS: CARVEDILOL 6.25 MG TAB PO SCH (06:25)
[2019-03-05 07:27] LABS: Calcium 8.7 mg/dL (8.4-10.2); Potassium 3.9 mmol/L (3.5-5.1)
[2019-03-05] MEDS: IPRATROPIUM-ALBUTEROL 3 ML NEB INHALATION SCH (08:02)
[2019-03-05 09:00] VITALS: BP 137/56; PULSE 65; RESP 16; TEMP 98.1
[2019-03-05] MEDS ORDERED: PANTOPRAZOLE 40 MG TABLET PO SCH (09:00)
[2019-03-05] MEDS ORDERED: SENNOSIDES-DOCUSATE SODIUM 1 EACH TAB PO SCH (09:00)
[2019-03-05] MEDS: CLOPIDOGREL 75 MG TAB PO SCH (09:20)
[2019-03-05] MEDS: ISOSORBIDE MONONITRATE ER 30 MG TAB.ER.24H PO SCH (09:21)
[2019-03-05] MEDS: ATORVASTATIN 40 MG TAB PO SCH (09:21)
[2019-03-05] MEDS: hydrALAZINE HCL 25 MG TAB PO SCH (09:21)
[2019-03-05] MEDS: guaiFENesin 600 MG TABLET.ER PO SCH (09:21)
[2019-03-05] MEDS: VENLAFAXINE HCL ER 150 MG CAP PO SCH (09:22)
[2019-03-05] MEDS: CALCITRIOL 0.25 MCG CAP PO SCH (09:22)
[2019-03-05] MEDS: TORSEMIDE 20 MG TAB PO SCH (09:22)
[2019-03-05] MEDS: amLODIPine 10 MG TAB PO SCH (09:22)
[2019-03-05] MEDS: clonazePAM 0.5 MG TAB PO SCH (09:22)
[2019-03-05] MEDS ORDERED: APIXABAN 2.5 MG TABLET PO SCH (10:15)
--- NOTE | 2019-03-05 10:26 | P.PN ---
Subjective Progress Note Date: 03/05/19 Principal diagnosis: Acute lower GI bleed Status post colonoscopy normal-appearing: No evidence of colitis or colorectal neoplasia moderate sigmoid diverticulosis and grade 2 internal hemorrhoids. CBC pending. Objective - Vital Signs Vital signs: Vital Signs Temp 97.7 F 03/05/19 02:55 Pulse 80 03/05/19 08:13 Resp 24 03/05/19 02:55 BP 137/96 03/05/19 02:55 Pulse Ox 92 L 03/05/19 03:01 Intake & Output 03/04/19 03/05/19 03/05/19 18:59 06:59 18:59 Intake Total 486 240 Output Total 3 Balance 486 -3 240 Weight 82.6 kg Intake: IV 250 Oral 236 240 Output: Urine 3 Other: Voiding Method Toilet # Voids 1 - Exam General appearance: The patient is alert, oriented, in no acute distress. HET: Head is normocephalic and atraumatic. Pupils are equal and reactive. Oropharynx is clear without lesions. Neck: Supple without lymphadenopathy. Trachea midline. Heart: S1 S2. Regular rate and rhythm. Lungs: No crackles or wheezes are heard. Abdomen: Soft, nontender, nondistended with bowel sounds. No peritoneal signs. No palpable organomegaly or masses. Extremities: Normal skin color and turgor. No cyanosis, rash, ulceration, clubbing, or edema. Radial and pedal pulses are 2/4 bilaterally. Neurological: No focal deficits. Strength and sensation are grossly intact. - Labs CBC & Chem 7: 03/04/19 11:20 03/05/19 06:19 Labs: Abnormal Lab Results - Last 24 Hours (Table) 03/04/19 03/04/19 03/04/19 Range/Units 11:20 17:01 21:11 RBC 2.68 L (4.30-5.90) m/uL Hgb 8.7 L (13.0-17.5) gm/dL Hct 27.6 L (39.0-53.0) % MCV 102.8 H (80.0-100.0) fL BUN (9-20) mg/dL Creatinine (0.66-1.25) mg/dL Glucose (74-99) mg/dL POC Glucose (mg/dL) 128 H 198 H (75-99) mg/dL 03/05/19 Range/Units 06:19 RBC (4.30-5.90) m/uL Hgb (13.0-17.5) gm/dL Hct (39.0-53.0) % MCV (80.0-100.0) fL BUN 48 H (9-20) mg/dL Creatinine 2.64 H (0.66-1.25) mg/dL Glucose 52 L (74-99) mg/dL POC Glucose (mg/dL) (75-99) mg/dL Assessment and Plan (1) Hematochezia Narrative/Plan: Status post colonoscopy normal appearing colon moderate sigmoid diverticulosis and grade 2 internal hemorrhoids lower GI bleed most likely hemorrhoidal in nature. Current Visit: Yes Status: Acute Code(s): K92.1 - MELENA SNOMED Code(s): 418572594 (2) Colon, diverticulosis Current Visit: Yes Status: Acute Code(s): K57.30 - DVRTCLOS OF LG INT W/O PERFORATION OR ABSCESS W/O BLEEDING SNOMED Code(s): 045607718 (3) Acute blood loss anemia Current Visit: Yes Status: Acute Code(s): D62 - ACUTE POSTHEMORRHAGIC ANEMIA SNOMED Code(s): 626531402 (4) History of aortic valve replacement Current Visit: Yes Status: Acute Code(s): Z95.2 - PRESENCE OF PROSTHETIC HEART VALVE SNOMED Code(s): 7701072580309 (5) Chronic atrial fibrillation Current Visit: No Status: Acute Code(s): I48.2 - CHRONIC ATRIAL FIBRILLATION SNOMED Code(s): 549616615 Plan: 1. CBC monitoring. May resume anticoagulation. Diet as tolerated. Avoid constipation continue a daily stool softeners. Assessment and plan a care discussed with Dr. De La Rosa
--- NOTE | 2019-03-05 10:45 | P.DS ---
Providers Date of admission: 03/01/19 11:43 Expected date of discharge: 03/05/19 Attending physician: Troy Moser Consults: 03/01/19 11:47 Consult Physician Routine Consulting Provider: Maya Bennett Consult Reason/Comments: Lower GI bleed Do you want consulting provider notified?: Yes 03/01/19 11:48 Consult Physician Routine Consulting Provider: Ronnie Capps Consult Reason/Comments: Lower GI bleed, on antiplatelet, on anticoagulation Do you want consulting provider notified?: Yes Primary care physician: Minda Lujan Hospital Course: Discharge summary - GI bleed colonoscopy shows no active bleeding and shows internal hemorrhoids - Anemia due to blood loss - CAD status post stent in the circumflex artery in January 2019 - History of A. fib on any questions - CHF with ejection fraction 40-45% - History of mitral regurgitation - Diabetes mellitus - C KD - COPD - Hypertension - Anxiety and depression Hospital course Very pleasant 88-year-old gentleman with a past medical history significant for recent stent in January 2019 to the circumflex artery on Plavix, aspirin and eliquis is admitted for GI bleed.Patient states he had bloody stools on and Monday, bright red in nature. Patient states he would get up to go urinate and would have bright red blood leaking from his rectum down his leg. He also complained of right quadrant abdominal pain at home. He had a recent stent placed in January 2019 and is on aspirin and Plavix. Patient is also on eliquis for A. fib his troponin level His troponin level was initially elevated slightly.cardiology was following the patient. Patient eventually had a colonoscopy which showed no active bleeding and showed hemorrhoids. GI recommended to continue anti-coagulation On 03/05/2019 On exam, alert and oriented x3. HEENT: Conjunctivae normal. eyes normal. NECK: No JVD. No thyroid enlargement. No LNs CARDIOVASCULAR: S1-S2 positive RESPIRATION: Breath sounds diminished in the bases. No rhonchi or crackles. No bronchial breathing. ABDOMEN: Soft, nontender . No guarding. no masses palpable. No ascites, No hepatosplenomegaly.Bowel sounds heard. LEGS: No edema. no swelling NERVOUS SYSTEM: Cranial N 2-12 grossly normal. Moves all 4 limbs. No focal deficits. No sensory deficit. No signs of cerebellar dysfucntion. Skin: no ulcer no rash Joints: No active swelling. No inflammation. Lymphatic system. No LN neck axilla or groin. patient was having desaturations when he was emanating. He was put on home oxygen. He was complaining of no shortness of breath no cough, no chest pain or racing heart. His vitals and labs were stable. Cardiology cleared him for discharge. Patient will put on home oxygen. Patient has an appointment with Dr. Kimble tomorrow which she was asked to keep. patient was also asked to follow with his primary care doctor and with the cardiology at the dates discussed below in the discharge summary Patient Condition at Discharge: Stable Plan - Discharge Summary New Discharge Prescriptions: New Pantoprazole [Protonix] 40 mg PO DAILY #30 tablet.dr Plata-Docusate Sodium [Senokot-S] 2 each PO BID PRN #60 tab PRN Reason: Constipation Continue amLODIPine [Norvasc] 10 mg PO DAILY Clopidogrel [Plavix] 75 mg PO DAILY Carvedilol [Coreg] 6.25 mg PO BID Atorvastatin [Lipitor] 40 mg PO DAILY Venlafaxine HCl ER [Effexor XR] 150 mg PO DAILY Cyanocobalamin [Vitamin B-12] 500 mcg PO HS Allopurinol [Zyloprim] 300 mg PO HS L.acidoph,Paracasei, B.lactis [Probiotic] 1 cap PO DAILY Calcitriol 0.5 mcg PO TUSA Ergocalciferol (Vitamin D2) [Vitamin D2] 50,000 unit PO Q14D clonazePAM [KlonoPIN] 0.25 mg PO BID #6 tablet hydrALAZINE HCL [Apresoline] 75 mg PO TID #90 tab Apixaban [Eliquis] 2.5 mg PO BID #60 tab Isosorbide Mononitrate ER [Imdur] 30 mg PO DAILY #30 tab Nitroglycerin Sl Tabs [Nitrostat] 0.4 mg SUBLINGUAL Q5M PRN #25 tab PRN Reason: Angina Ipratropium-Albuterol Nebulize [Duoneb 0.5 mg-3 mg/3 ml Soln] 3 ml INHALATION RT-TID Torsemide [Demadex] 20 mg PO BID #30 tablet Insulin Detemir (Levemir) [Levemir] 30 unit SQ HS syr Discontinued Aspirin EC [Ecotrin Low Dose] 81 mg PO HS Discharge Medication List Allopurinol [Zyloprim] 300 mg PO HS 01/08/19 [History] Atorvastatin [Lipitor] 40 mg PO DAILY 01/08/19 [History] Calcitriol 0.5 mcg PO TUSA 01/08/19 [History] Carvedilol [Coreg] 6.25 mg PO BID 01/08/19 [History] Clopidogrel [Plavix] 75 mg PO DAILY 01/08/19 [History] Cyanocobalamin [Vitamin B-12] 500 mcg PO HS 01/08/19 [History] Ergocalciferol (Vitamin D2) [Vitamin D2] 50,000 unit PO Q14D 01/08/19 [History] L.acidoph,Paracasei, B.lactis [Probiotic] 1 cap PO DAILY 01/08/19 [History] Venlafaxine HCl ER [Effexor XR] 150 mg PO DAILY 01/08/19 [History] amLODIPine [Norvasc] 10 mg PO DAILY 01/08/19 [History] clonazePAM [KlonoPIN] 0.25 mg PO BID #6 tablet 01/21/19 [Rx] Apixaban [Eliquis] 2.5 mg PO BID #60 tab 01/22/19 [Rx] Isosorbide Mononitrate ER [Imdur] 30 mg PO DAILY #30 tab 01/22/19 [Rx] Nitroglycerin Sl Tabs [Nitrostat] 0.4 mg SUBLINGUAL Q5M PRN #25 tab 01/22/19 [Rx] hydrALAZINE HCL [Apresoline] 75 mg PO TID #90 tab 01/22/19 [Rx] Ipratropium-Albuterol Nebulize [Duoneb 0.5 mg-3 mg/3 ml Soln] 3 ml INHALATION RT-TID 02/14/19 [History] Torsemide [Demadex] 20 mg PO BID #30 tablet 02/16/19 [Rx] Insulin Detemir (Levemir) [Levemir] 30 unit SQ HS syr 02/17/19 [Rx] Pantoprazole [Protonix] 40 mg PO DAILY #30 tablet. 03/05/19 [Rx] Sennosides-Docusate Sodium [Senokot-S] 2 each PO BID PRN #60 tab 07/02/19 [Rx] Follow up Appointment(s)/Referral(s): Ronnie Capps MD [STAFF PHYSICIAN] - 03/15/19 3:15 pm (Previous appointment cancelled and moved. ) Maya Bennett MD [STAFF PHYSICIAN] - 2 Weeks Minda Lujan DO [Primary Care Provider] - 1-2 days () [facility], [NON-STAFF] - Patient Instructions/Handouts: Gastrointestinal Bleeding (DC), Rectal Bleeding (DC), Diverticulosis (DC) Activity/Diet/Wound Care/Special Instructions: Patient will require home oxygen at discharge secondary to pulse ox of 86% on room air with activity secondary to dx: COPD
[2019-03-05 10:54] LABS: HCT 28.5 % (39.0-53.0); HGB 8.9 gm/dL (13.0-17.5); Hypochromasia Slight; MCH 32.2 pg (25.0-35.0); MCV 103.7 fL (80.0-100.0); Macrocytosis Slight; Mean Platelet Volume 8.3; Platelet Count 319 k/uL (150-450); RBC 2.75 m/uL (4.30-5.90); RDW 13.6 % (11.5-15.5); WBC 10.5 k/uL (3.8-10.6)
[2019-03-05 11:36] LABS: Glucose,Whole Blood 164 mg/dL (75-99)
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
--- NOTE | 2019-03-05 16:12 | PN ---
PROGRESS NOTE DATE OF SERVICE: This is a gentleman with history of CAD, recent stenting, GI bleed. Apparently the colonoscopy revealed only hemorrhoids. I am recommending that he should go home on Eliquis 2.5 mg b.i.d. and Plavix 75 mg daily. Aspirin can be discontinued. Vitals are stable. Heart rate is well controlled. He has chronic atrial fibrillation. S1, S2 with a regular rhythm. Short systolic murmur noted. Lungs reveal decent air entry. Abdomen and lower extremity exam unchanged. MMODL / IJN: [id number] /
== END 2019-03-05 13:00 | disposition home health service (06) | DRG 394 ==
LOC: EC 08:50 → 3SCARD 11:43
PROVIDERS: ADMIT Hospitalist; ATTEND Hospitalist
PROC: 0DJD8ZZ Inspection of Lower Intestinal Tract, Via Natural or Artificial Opening Endoscopic (ICD-10-PCS; principal; 2019-03-04 08:30)
DX: K64.1 Second degree hemorrhoids (principal); D62 Acute posthemorrhagic anemia; I13.0 Hypertensive heart and chronic kidney disease with heart failure and stage 1 through stage 4 chronic kidney disease, or unspecified chronic kidney disease; I42.9 Cardiomyopathy, unspecified; I50.22 Chronic systolic (congestive) heart failure; E11.22 Type 2 diabetes mellitus with diabetic chronic kidney disease; I27.20 Pulmonary hypertension, unspecified; I48.2 Chronic atrial fibrillation; J44.9 Chronic obstructive pulmonary disease, unspecified; N18.3 Chronic kidney disease, stage 3 (moderate); E78.5 Hyperlipidemia, unspecified; I25.10 Atherosclerotic heart disease of native coronary artery without angina pectoris; I25.2 Old myocardial infarction; K57.30 Diverticulosis of large intestine without perforation or abscess without bleeding; M10.9 Gout, unspecified; M19.90 Unspecified osteoarthritis, unspecified site; F41.9 Anxiety disorder, unspecified; F32.9 Major depressive disorder, single episode, unspecified; Z79.01 Long term (current) use of anticoagulants; Z79.02 Long term (current) use of antithrombotics/antiplatelets; Z79.4 Long term (current) use of insulin; Z79.82 Long term (current) use of aspirin; Z79.899 Other long term (current) drug therapy; Z87.891 Personal history of nicotine dependence; Z95.5 Presence of coronary angioplasty implant and graft; Z95.2 Presence of prosthetic heart valve; Z86.73 Personal history of transient ischemic attack (TIA), and cerebral infarction without residual deficits; Z88.1 Allergy status to other antibiotic agents; Z88.2 Allergy status to sulfonamides; Z98.42 Cataract extraction status, left eye; Z98.41 Cataract extraction status, right eye; Z96.1 Presence of intraocular lens; Z82.49 Family history of ischemic heart disease and other diseases of the circulatory system; Z83.3 Family history of diabetes mellitus
CPT/HCPCS: 36415; 45378; 74176; 80048; 80053; 83735; 84484; 85025; 85027; 85610; 85730; 86850; 86900; 86901; 94640; 94760; 96374; 99285

== ENCOUNTER 2019-05-02 10:33 | Inpatient (IN) | payer MEDICARE ==
[2019-05-02] MEDS ORDERED: IPRATROPIUM-ALBUTEROL 3 ML NEB INHALATION STA ×2 (10:53→13:11)
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
[2019-05-02 11:52] LABS: Albumin 3.4 g/dL (3.5-5.0); Calcium 8.5 mg/dL (8.4-10.2); Magnesium 2.2 mg/dL (1.6-2.3); Total Bilirubin 0.4 mg/dL (0.2-1.3); Total Protein 6.5 g/dL (6.3-8.2)
[2019-05-02 11:56] LABS: INR 1.1 (<1.2); Partial Thromboplastin Time 26.4 sec (22.0-30.0); Prothrombin Time 11.1 sec (9.0-12.0)
[2019-05-02 12:01] LABS: Anisocytosis Slight; Basophils % (A) 0 %; Eosinophils # (A) 0.2 k/uL (0-0.7); Eosinophils % (A) 3 %; HCT 29.7 % (39.0-53.0); HGB 9.8 gm/dL (13.0-17.5); Lymphocytes # (A) 0.4 k/uL (1.0-4.8); Lymphocytes % (A) 5 %; MCH 32.2 pg (25.0-35.0); MCHC 32.8 g/dL (31.0-37.0); Macrocytosis Slight; Mean Platelet Volume 7.9; Monocytes # (A) 0.5 k/uL (0-1.0); Monocytes % (A) 6 %; Neutrophils # (A) 6.2 k/uL (1.3-7.7); Neutrophils % (A) 83 %; Platelet Count 277 k/uL (150-450); RBC 3.03 m/uL (4.30-5.90); WBC 7.4 k/uL (3.8-10.6)
[2019-05-02 12:11] LABS: MCV 98.1 fL (80.0-100.0)
--- NOTE | 2019-05-02 12:47 | XR ---
EXAMINATION TYPE: XR chest 2V DATE OF EXAM: 05/02/2019 COMPARISON: Chest x-ray February 17, 2019. HISTORY: History of COPD with shortness of breath. TECHNIQUE: Frontal and lateral views of the chest are obtained. FINDINGS: Overlying sternal wires are redemonstrated. Right-sided volume loss with mediastinal shift is again seen. There is stable small right pleural effusion. There is chronic parenchymal changes ac aterally with right mid to lower lung scarring felt present. Areas of acute infiltrate difficult to e xclude a background chronic change but no significant change from prior noted. Cardiac silhouette siz e is stable and mildly enlarged with atherosclerotic aorta. Old fracture deformity right clavicle red emonstrated. IMPRESSION: Overall stable findings, favor chronic changes as detailed above.
[2019-05-02] MEDS ORDERED: FUROSEMIDE 10 MG/ML 4 ML VIAL IV STA ×2 (13:11)
[2019-05-02] MEDS ORDERED: methylPREDNISolone SOD SUCCI 125 MG/2 ML VIAL IV STA (13:11)
[2019-05-02] MEDS: IPRATROPIUM-ALBUTEROL 3 ML NEB INHALATION SCH ×3 (15:52→23:18)
[2019-05-02] MEDS ORDERED: methylPREDNISolone SOD SUCCI 125 MG/2 ML VIAL IV SCH (18:00)
[2019-05-02 18:55] LABS: Glucose,Whole Blood 220 mg/dL (75-99)
[2019-05-02] MEDS ORDERED: PNEUMOCOCCAL VACC-PNEUMOVAX 23 25 MCG/0.5 ML VIAL IM ONE (19:41)
[2019-05-02] MEDS ORDERED: NITROGLYCERIN SL TABS 0.4 MG TAB SUBLINGUAL PRN (21:06)
[2019-05-02] MEDS ORDERED: MAGNESIUM OXIDE 400 MG TAB PO STA (21:40)
[2019-05-02] MEDS: clonazePAM 0.5 MG TAB PO SCH (21:42)
[2019-05-02] MEDS: ALLOPURINOL 300 MG TAB PO SCH (21:43)
[2019-05-02] MEDS: hydrALAZINE HCL 50 MG TAB PO SCH (21:43)
[2019-05-02] MEDS: APIXABAN 2.5 MG TABLET PO SCH (21:44)
[2019-05-02] MEDS: INSULIN DETEMIR (LEVEMIR) 100 UNIT/ML SYR SQ SCH (21:48)
[2019-05-02] MEDS: HYOSCYAMINE SULFATE 0.375 MG TAB.ER.12H PO SCH (21:51)
[2019-05-02] MEDS: TORSEMIDE 20 MG TAB PO SCH (21:51)
[2019-05-02] MEDS: CARVEDILOL 6.25 MG TAB PO SCH (21:52)
[2019-05-02] MEDS: MELATONIN 5 MG TABLET PO SCH (21:55)
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
[2019-05-03] MEDS: methylPREDNISolone SOD SUCCI 40 MG/ML 1 ML VIAL IV SCH ×2 (00:22→09:14)
[2019-05-03] MEDS: CEPHALEXIN 250 MG CAP PO SCH ×3 (00:22→22:18)
[2019-05-03] MEDS: ACETAMINOPHEN TAB 325 MG TAB PO PRN ×3 (00:33→22:27)
[2019-05-03] MEDS: IPRATROPIUM-ALBUTEROL 3 ML NEB INHALATION SCH ×6 (03:22→23:25)
[2019-05-03 05:46] LABS: Glucose,Whole Blood 207 mg/dL (75-99)
[2019-05-03] MEDS: REPAGLINIDE 1 MG TAB PO SCH ×3 (06:35→17:34)
[2019-05-03] MEDS: INSULIN ASPART (NovoLOG) 100 UNIT/ML VIAL SQ SCH ×4 (06:35→22:26)
[2019-05-03] MEDS: PANTOPRAZOLE 40 MG TABLET PO PRN ×2 (06:40→09:23)
[2019-05-03] MEDS: CARVEDILOL 6.25 MG TAB PO SCH ×2 (06:40→16:45)
[2019-05-03] MEDS ORDERED: BUDESONIDE 1 MG/2 ML NEBU INHALATION SCH (08:00)
[2019-05-03] MEDS: clonazePAM 0.5 MG TAB PO SCH ×2 (09:21→22:17)
[2019-05-03] MEDS: HYOSCYAMINE SULFATE 0.375 MG TAB.ER.12H PO SCH ×2 (09:22→22:18)
[2019-05-03] MEDS: TORSEMIDE 20 MG TAB PO SCH ×2 (09:22→22:18)
[2019-05-03] MEDS: hydrALAZINE HCL 50 MG TAB PO SCH ×3 (09:22→22:19)
[2019-05-03] MEDS: VENLAFAXINE HCL ER 150 MG CAP PO SCH (09:23)
[2019-05-03] MEDS: APIXABAN 2.5 MG TABLET PO SCH ×2 (09:23→22:18)
[2019-05-03] MEDS: CLOPIDOGREL 75 MG TAB PO SCH (09:24)
[2019-05-03] MEDS: amLODIPine 10 MG TAB PO SCH (09:24)
[2019-05-03] MEDS: ATORVASTATIN 40 MG TAB PO SCH (09:24)
[2019-05-03] MEDS: ISOSORBIDE MONONITRATE ER 30 MG TAB.ER.24H PO SCH (09:24)
[2019-05-03 12:00] LABS: Glucose,Whole Blood 149 mg/dL (75-99)
[2019-05-03] MEDS ORDERED: NON-FORMULARY DRUG (Ubidecarenone [Co Q-10] 200 MG) PO SCH (12:00)
[2019-05-03] MEDS: methylPREDNISolone 4 MG TAB TAPER PO SCH (14:32)
[2019-05-03 14:54] VITALS: BMI 25.5
--- NOTE | 2019-05-03 16:17 | CONS ---
CONSULTATION PULMONARY/CRITICAL CARE CONSULTATION: DATE OF SERVICE: 05/03/2019 REASON FOR CONSULTATION: Shortness of breath. This is an 89-year-old male who presented to the emergency department with complaints of shortness of breath. He has had progressive shortness of breath over the last 4 days. He did see my partner last Monday, at which time he felt there was some congestion on the right side. The patient has been taking increased doses of Lasix, which have seemed to help. More recently, with an increased dose of Lasix, the response was not as favorable. There is no fever or chills. He does have a slight cough. Not producing any phlegm. He cannot lie flat at home. There has been a slight weight gain. No chest pain or pressure. I saw him in the office after a long stay in the hospital back in January. We did pulmonary function tests on him. The patient had an isolated diffusion abnormality on his PFTs and I thought this related to either pulmonary vascular disease such as PE or could relate to underlying emphysema. He did smoke in the past. Smoking history was minimal and mostly with cigars. He did not inhale. He went to [facility]. He was thought to possibly need mitral valve surgery, but he was just diuresed, at which time they told him that his valve was not that bad. Anyway, in the emergency room he was told that he likely had more of a COPD exacerbation, but I do not really believe the patient has significant COPD. He did have a very elevated N-terminal proBNP. In addition, he had signs and symptoms of heart failure. His examination also revealed bilateral crackles, more right- than left- sided. HOME MEDICATIONS: Home medications include: 1. Zyloprim. 2. Lipitor. 3. Calcitriol. 4. Coreg. 5. Plavix. 6. Vitamin B12. 7. Probiotics. 8. Effexor. 9. Norvasc. 10.Levbid. 11.Lantus insulin. 12.Melatonin. 13.Protonix. 14.Prandin. 15.Demadex. 16.Coenzyme Q. 17.Apresoline. 18.Klonopin. 19.Eliquis. 20.Imdur. 21.Nitrostat. ALLERGIES: 1. SULFA ANTIBIOTICS. 2. TRIMETHOPRIM. PAST MEDICAL HISTORY: Past medical history includes: 1. CAD. 2. Heart failure. 3. Possible COPD. 4. Diabetes mellitus. 5. Hypertension. 6. Myocardial infarction. 7. DJD. 8. Chronic renal disease. 9. He also had a recent admission to the hospital back in January with a [id number]- elevation myocardial infarction as well as heart failure and severe mitral valve regurgitation. 10.Stage III chronic kidney disease. 11.Diabetic nephropathy. 12.TIA. 13.Gout. SURGICAL HISTORY: Surgical history includes, among other things: 1. Adenoidectomy. 2. Cardiac valve replacement. 3. Heart catheterization. 4. Stent placement. 5. Hernia repair. 6. Tonsillectomy. 7. PCI with 2 stents recently on January 17. 8. 2005 aortic valve surgery at [facility]. 9. Left inguinal hernia repair. 10.Bilateral cataract surgery. 11.Colonoscopy. SOCIAL HISTORY: Positive for minimal tobacco use in the past. He smoked mostly cigars. His cigar smoking was remote. Denies alcohol use or illicit drug use. FAMILY HISTORY: Positive for father who had coronary artery disease and mother with diabetes mellitus. REVIEW OF SYSTEMS: CONSTITUTIONAL: Negative. NEUROLOGIC: Negative. HEENT: Negative. CARDIOVASCULAR: Shortness of breath. Orthopnea. PULMONARY: Shortness of breath. Minimal cough without phlegm production. GI: Negative. : Negative. RHEUMATOLOGIC: Negative. IMMUNOLOGIC: Negative. ENDOCRINOLOGIC: Negative. DERMATOLOGIC: Negative. PHYSICAL EXAMINATION: VITAL SIGNS: Current vital signs are reviewed. Temperature 97.4, heart rate 62, respiratory rate 20, blood pressure 151/74, mean 99. Saturations are 95% on 2 L. GENERAL: He appears in no acute distress. HEENT: HEENT examination is grossly unremarkable. NECK: Supple. Full range of motion. No adenopathy. Neck veins are flat. CARDIOVASCULAR: Cardiovascular examination reveals distant heart sounds. Heart rate in mid 60s. Soft systolic murmur noted. LUNGS: Bilateral crackles, more right- than left-sided. No wheezes or rhonchi. ABDOMEN: Soft. Bowel sounds are heard. EXTREMITIES: Intact. No significant edema noted. SKIN: Without rash. NEUROLOGIC: Neurologic examination is brief but nonfocal. LABORATORY DATA/IMAGING: Reviewed. White count 7.4, hemoglobin 9.8, hematocrit 29.7, platelet count 277,000. PT, INR, PTT all normal. Sodium, potassium, chloride, CO2 normal. Anion gap is 9. BUN and creatinine were 61 and 2.56. Troponin is 0.036. N-terminal proBNP 13,100. Albumin 3.4. AST and ALT are low. Chest x-ray shows sternal wires. There is volume loss on the right side with mediastinal shift. There is a small right-sided pleural effusion. There are diffuse bilateral parenchymal changes, more right- than left-sided. Medications are reviewed. He is on his baseline Demadex, which is 60 mg twice a day. He is also receiving some Solu-Medrol. ASSESSMENT: 1. Shortness of breath, likely multifactorial, in part related to underlying fluid overload/congestive heart failure, but also possibly chronic obstructive pulmonary disease. Pulmonary embolism has never been actually ruled out, I do not believe, although he may have had a CT angio or ventilation-perfusion lung scan at [facility]. 2. History of recent admission to [facility] for congestive heart failure, status post diuresis. 3. Valvular heart disease in the form of mitral valve disease, which is not thought to be significant. 4. History of gout. 5. Hyperlipidemia. 6. Hypertension. 7. Diabetes mellitus. 8. Coronary artery disease with previous stent placement. 9. Chronic kidney disease, stage III. 10.Degenerative joint disease. 11.Previous myocardial infarction. 12.Status post aortic valve replacement. 13.Arthritis. 14.Diabetic nephropathy. PLAN: The patient's medications are reviewed. He is feeling much better. He wants to be discharged home. I will review the breathing medications. Again, I was not impressed with significant COPD when I saw him in the office. He did have an isolated diffusion abnormality. Additional recommendations and suggestions are forthcoming. We should see him in followup. MMODL / IJN: [id number] /
[2019-05-03 17:26] LABS: Glucose,Whole Blood 216 mg/dL (75-99)
[2019-05-03] MEDS: SYMBICORT 160-4.5 MCG INHALER INHALATION SCH (19:01)
[2019-05-03] MEDS ORDERED: CYANOCOBALAMIN 500 MCG TAB PO SCH (21:00)
[2019-05-03 21:19] LABS: Glucose,Whole Blood 173 mg/dL (75-99)
--- NOTE | 2019-05-03 21:24 | P.PN ---
Progress Note - Text Progress Note Date: 05/03/19 Chief Complaint: Bright red blood per rectum History of presenting complaint: This is a 89-year-old patient of Dr. Minda rosas. Chronic stable medical conditions include recent acute [place] in January of this year, CHF 40-45%, severe mitral regurgitation, diabetes, hypertension, chronic kidney disease stage III, with diabetic nephropathy and nephrosclerosis, COPD, anxiety depression,. Internal hemorrhoids and sigmoid diverticulosis . Patient presents with 3 days of worsening short of breath. Some cough. Some yellow sputum. No fever no chills. Appetite is okay. No change in urine or bowel movements. Some wheezing. No chest pain no palpitation. Admitted with acute COPD exacerbation and acute bronchitis. Today-breathing better. Leg cramps improved with magnesium supplement. Less wheezing. Tolerating a diet. Daughter the bedside. Review of systems: Was done for constitutional, cardiovascular, GI, pulmonary. relevant finding as above Active Medications Acetaminophen (Tylenol Tab) 325 mg PO Q6HR PRN PRN Reason: Fever and/ or Pain Last Admin: 05/03/19 06:40 Dose: 325 mg Documented by: Albuterol/Ipratropium (Duoneb 0.5 Mg-3 Mg/3 Ml Soln) 3 ml INHALATION RT-Q4H [facility] Last Admin: 05/03/19 18:47 Dose: 3 ml Documented by: Allopurinol (Zyloprim) 300 mg PO HS [facility] Last Admin: 05/02/19 21:43 Dose: 300 mg Documented by: Amlodipine Besylate (Norvasc) 10 mg PO DAILY [facility] Last Admin: 05/03/19 09:24 Dose: 10 mg Documented by: Apixaban (Eliquis) 2.5 mg PO BID [facility] Last Admin: 05/03/19 09:23 Dose: 2.5 mg Documented by: Atorvastatin Calcium (Lipitor) 40 mg PO DAILY [facility] Last Admin: 05/03/19 09:24 Dose: 40 mg Documented by: Budesonide/Formoterol Fumarate (Symbicort 160-4.5 Mcg Inhaler) 2 puff INHALATION RT-BID [facility] Last Admin: 05/03/19 19:01 Dose: Not Given Documented by: Calcitriol (Rocaltrol) 0.5 mcg PO TuSa@0900 [facility] Carvedilol (Coreg) 12.5 mg PO AC-BID [facility] Last Admin: 05/03/19 16:45 Dose: 12.5 mg Documented by: Cephalexin (Keflex) 250 mg PO Q12H [facility] Last Admin: 05/03/19 09:30 Dose: 250 mg Documented by: Clonazepam (Klonopin) 0.25 mg PO BID [facility] Last Admin: 05/03/19 09:21 Dose: 0.25 mg Documented by: Clopidogrel Bisulfate (Plavix) 75 mg PO DAILY [facility] Last Admin: 05/03/19 09:24 Dose: 75 mg Documented by: Cyanocobalamin (Vitamin B-12) 500 mcg PO [facility] Hydralazine HCl (Apresoline) 100 mg PO TID [facility] Last Admin: 05/03/19 16:45 Dose: 100 mg Documented by: Hyoscyamine (Levbid) 0.375 mg PO BID [facility] Last Admin: 05/03/19 09:22 Dose: 0.375 mg Documented by: Insulin Aspart (Novolog) 0 unit SQ [facility]; Protocol Last Admin: 05/03/19 17:33 Dose: 7 unit Documented by: Insulin Detemir (Levemir) 22 unit SQ [facility] Last Admin: 05/02/19 21:48 Dose: 22 unit Documented by: Isosorbide Mononitrate (Imdur) 30 mg PO DAILY [facility] Last Admin: 05/03/19 09:24 Dose: 30 mg Documented by: Melatonin (Melatonin) 5 mg PO [facility] Last Admin: 05/02/19 21:55 Dose: 5 mg Documented by: Methylprednisolone (Medrol Dose Pack) 24 mg PO DAILY [facility]; Taper Stop: 05/09/19 13:44 Last Admin: 05/03/19 14:32 Dose: 24 mg Documented by: Pantoprazole Sodium (Protonix) 40 mg PO DAILY PRN PRN Reason: Heartburn Last Admin: 05/03/19 09:23 Dose: 40 mg Documented by: Repaglinide (Prandin) 1 mg PO AC-TID [facility] Last Admin: 05/03/19 17:34 Dose: 1 mg Documented by: Torsemide (Demadex) 60 mg PO BID [facility] Last Admin: 05/03/19 09:22 Dose: 60 mg Documented by: Venlafaxine HCl (Effexor Xr) 150 mg PO DAILY [facility] Last Admin: 08/30/19 09:23 Dose: 150 mg Documented by: Physical examination: VITAL SIGNS: 97.4, 74, 20, 151/74, 95% on 2 L GENERAL: Sitting up, less short of breath today EYES: [Pupils equal. Conjunctiva a bit pale l. HEENT: External appearance of nose and ears normal, oral cavity grossly normal. NECK: JVD not raised; masses not palpable. HEART: First and second heart sounds are normal; no edema. LUNGS: Respiratory rate increased, diminished breath sounds prolonged expiration, breathing better. ABDOMEN: Soft, nontender, liver spleen not palpable, no masses palpable. PSYCH: Alert and oriented x3; mood and affect slightly anxious. Investigations, reviewed in the clinical context: Accu-Cheks noted Admission labs White count 7.4 hemoglobin 9.8 it was 8.9 on March 05 potassium 4 bun 61 creatinine 2.5688 patient's bun and creatinine in March 05 was 48/2.64 Troponin I 0.036 proBNP 13,100 EKG tracing personally reviewed by me shows atrial fibrillation rate controlled with PVC Chest x-ray film personally reviewed by me shows some chronic changes Assessment: -Acute COPD exacerbation and an ex-smoker, with bronchitis., Improving -Bilateral leg muscle cramps, improved -Coronary artery disease with stent to circumflex in January 2019 -Chronic congestive heart failure from systolic dysfunction EF 40-45% -Severe mitral regurgitation nonrheumatic --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 He wishes to go home today to attend a family get together tomorrow . I did discuss at length with him and the daughter that some 0.9 gets better before he goes on. They do understand the same. He is improved since yesterday. Hopefully can be discharged tomorrow.
[2019-05-03] MEDS: ALLOPURINOL 300 MG TAB PO SCH (22:18)
[2019-05-03] MEDS: MELATONIN 5 MG TABLET PO SCH (22:18)
[2019-05-03] MEDS: INSULIN DETEMIR (LEVEMIR) 100 UNIT/ML SYR SQ SCH (22:19)
[2019-05-04] MEDS: IPRATROPIUM-ALBUTEROL 3 ML NEB INHALATION SCH ×3 (03:41→11:45)
[2019-05-04 06:06] LABS: Anisocytosis Slight; Basophils % (A) 0 %; Eosinophils % (A) 0 %; HGB 9.7 gm/dL (13.0-17.5); Lymphocytes # (A) 0.4 k/uL (1.0-4.8); Lymphocytes % (A) 3 %; MCH 32.5 pg (25.0-35.0); MCHC 33.4 g/dL (31.0-37.0); MCV 97.4 fL (80.0-100.0); Macrocytosis Slight; Mean Platelet Volume 8.2; Monocytes # (A) 0.7 k/uL (0-1.0); Monocytes % (A) 6 %; Neutrophils # (A) 11.1 k/uL (1.3-7.7); Neutrophils % (A) 90 %; Platelet Count 294 k/uL (150-450); RBC 2.98 m/uL (4.30-5.90); RDW 17.9 % (11.5-15.5); WBC 12.3 k/uL (3.8-10.6)
[2019-05-04 06:14] LABS: Glucose,Whole Blood 63 mg/dL (75-99)
[2019-05-04 06:31] LABS: Calcium 8.9 mg/dL (8.4-10.2); Potassium 4.1 mmol/L (3.5-5.1)
[2019-05-04 06:32] LABS: Glucose,Whole Blood 70 mg/dL (75-99)
[2019-05-04 06:47] LABS: Glucose,Whole Blood 212 mg/dL (75-99)
[2019-05-04] MEDS: INSULIN ASPART (NovoLOG) 100 UNIT/ML VIAL SQ SCH (06:51)
[2019-05-04] MEDS: CARVEDILOL 6.25 MG TAB PO SCH (06:54)
[2019-05-04] MEDS: REPAGLINIDE 1 MG TAB PO SCH (06:54)
[2019-05-04] MEDS: SYMBICORT 160-4.5 MCG INHALER INHALATION SCH (08:16)
[2019-05-04] MEDS: CLOPIDOGREL 75 MG TAB PO SCH (08:29)
[2019-05-04] MEDS: APIXABAN 2.5 MG TABLET PO SCH (08:29)
[2019-05-04] MEDS: TORSEMIDE 20 MG TAB PO SCH (08:30)
[2019-05-04] MEDS: ATORVASTATIN 40 MG TAB PO SCH (08:30)
[2019-05-04] MEDS: HYOSCYAMINE SULFATE 0.375 MG TAB.ER.12H PO SCH (08:30)
[2019-05-04] MEDS: amLODIPine 10 MG TAB PO SCH (08:30)
[2019-05-04] MEDS: hydrALAZINE HCL 50 MG TAB PO SCH (08:30)
[2019-05-04] MEDS: methylPREDNISolone 4 MG TAB TAPER PO SCH (08:30)
[2019-05-04] MEDS: ISOSORBIDE MONONITRATE ER 30 MG TAB.ER.24H PO SCH (08:30)
[2019-05-04] MEDS: VENLAFAXINE HCL ER 150 MG CAP PO SCH (08:31)
[2019-05-04] MEDS: clonazePAM 0.5 MG TAB PO SCH (08:31)
[2019-05-04 08:39] VITALS: BP 141/64; RESP 18; TEMP 97.6
[2019-05-04] MEDS ORDERED: CALCITRIOL 0.25 MCG CAP PO SCH (09:00)
[2019-05-04] MEDS: CEPHALEXIN 250 MG CAP PO SCH (11:08)
--- NOTE | 2019-05-04 11:42 | PN ---
PROGRESS NOTE DATE OF SERVICE: 05/04/2019 This is an 89-year-old gentleman who I saw yesterday in consultation. His primary issue is shortness of breath. His shortness of breath is likely multifactorial and part related to underlying fluid overload/CHF, but also possibly related to underlying COPD. Also, pulmonary embolism was a consideration. Finally, the patient's right lung appears to be a bit smaller than the left one and there is volume loss on the right side and he may actually have some sort of distinct process going on that right lung. Anyway, the patient was at [facility] for suspected severe mitral valve disease. Once he was diuresed, the mitral valve appeared to be relatively normal. He did not need a repair or replacement. I saw him in the office. We did pulmonary function test on him. He had an isolated diffusion abnormality. I explained to the daughter that this could represent either emphysema and/or pulmonary vascular disease. I have explained this now many times to her and the patient and they do not really seem to understand what I am saying, but nonetheless I recommended some sort of evaluation for PE. Apparently, his renal function was such that he could not have a CT angiogram and apparently the ventilation-perfusion lung scan could not be tolerated by the patient has he could not hold his breath. We do recommend some updrafts, Symbicort, and a little Medrol Dosepak. I do plan to see the patient back in the office to sort of fine-tune the diagnosis. He may be discharged home today according to both him and his daughter. The patient does have a history of some valvular heart disease, but not thought to be significant. He also suffers from gout, hyperlipidemia, hypertension, diabetes, CAD with previous stent placement, stage III chronic kidney disease, DJD, previous AR, status post aortic valve replacement, arthritis, and diabetic nephropathy. Currently, he is feeling much better. Current vital signs are reviewed, temperature 97.6, heart rate 57, respiratory rate 18, blood pressure 141/64 mean 89, saturations are between 96% and 97% on 3 L. There is no acute distress. HEENT: Examination is grossly unremarkable. Mucous membranes are moist. NECK: Supple. Full range of motion. No adenopathy. Neck veins are flat. CARDIOVASCULAR: Examination reveals regular rhythm and rate. No distinct murmurs noted. Heart rate in the low 60s. LUNGS: Reveal mostly clear breath sounds. There are some crackles at the bases, right more than left. ABDOMEN: Soft, bowel sounds are heard. EXTREMITIES: Intact. There is no edema. SKIN: Without rash. NEUROLOGIC: Examination is nonfocal. LAB DATA: Reviewed. White count 12.3, hemoglobin 9.7, hematocrit 29.0, platelet count 294,000, sodium 135, potassium 4.1, chloride 96, CO2 is 25, anion gap is 14, BUN and creatinine were 86 and 2.92. No recent x-rays to report. Medications are reviewed. ASSESSMENT: 1. Shortness of breath, likely multifactorial, and probably related to some extent to congestive heart failure as well as in valvular heart disease, which was apparently determined by [facility], but also possibly related to underlying COPD. In addition, the patient has never been evaluated for pulmonary embolism. 2. Recent admission to [facility] for congestive heart failure and valvular heart disease without the need for mitral valve replacement or repair. 3. History of gout. 4. History of hyperlipidemia. 5. Hypertension. 6. Diabetes. 7. Coronary artery disease with previous stent placement. 8. Chronic kidney disease, stage III. 9. Degenerative joint disease. 10.Previous myocardial infarction. 11.Status post aortic valve replacement. 12.Arthritis. 13.Diabetic nephropathy. PLAN: The patient is doing well. He may be discharged home today. He does have an appointment to see Dr. De La O for sleep apnea. I told the daughter to have him see me at the same time. Additional recommendations and suggestions are forthcoming. We did recommend a Medrol Dosepak, Symbicort, and some other medications for his breathing. He is on Demadex 60 mg twice a day. She will continue that. Additional recommendations and suggestions are forthcoming. MMODL / IJN: [id number] /
[2019-05-04 11:57] VITALS: PULSE 65
[2019-05-04 12:01] LABS: Glucose,Whole Blood 77 mg/dL (75-99)
--- NOTE | 2019-05-04 21:29 | P.DS ---
Providers Date of admission: 05/02/19 13:10 Expected date of discharge: 05/04/19 Attending physician: Troy Moser Consults: 05/02/19 13:23 Consult Physician Routine Consulting Provider: Inés De La O Consult Reason/Comments: COPD Do you want consulting provider notified?: Yes Primary care physician: Minda Rosas [facility] Course: Hospital course: This is a 89-year-old patient of Dr. Minda rosas. Chronic stable medical conditions include recent acute [place] in January of this year, CHF 40-45%, severe mitral regurgitation, diabetes, hypertension, chronic kidney disease stage III, with diabetic nephropathy and nephrosclerosis, COPD, anxiety depression,. Internal hemorrhoids and sigmoid diverticulosis . Patient presents with 3 days of worsening short of breath. Some cough. Some yellow sputum. No fever no chills. Appetite is okay. No change in urine or bowel movements. Some wheezing. No chest pain no palpitation. Admitted with acute COPD exacerbation and acute bronchitis. Patient responded well to bronchodilators and steroids. Leg cramps responded well to magnesium supplement. Spoke to the patient daughter the bedside. Today feeling greatly improved. Consultants: Dr. Terrazas from pulmonary Physical examination: VITAL SIGNS: 97.6, 57, 18, 141/64, 96% on 2 L GENERAL: Sitting up in a chair, much improved EYES: [Pupils equal. Conjunctiva a bit pale l. HEENT: External appearance of nose and ears normal, oral cavity grossly normal. NECK: JVD not raised; masses not palpable. HEART: First and second heart sounds are normal; no edema. LUNGS: Respiratory rate increased, diminished breath sounds prolonged expiration, breathing better. ABDOMEN: Soft, nontender, liver spleen not palpable, no masses palpable. PSYCH: Alert and oriented x3; mood and affect slightly anxious. Investigations, reviewed in the clinical context: Hemoglobin 9.7 potassium 4.1 bun 86 creatinine 2.92 Admission labs White count 7.4 hemoglobin 9.8 it was 8.9 on March 05 potassium 4 bun 61 creatinine 2.5688 patient's bun and creatinine in March 05 was 48/2.64 Troponin I 0.036 proBNP 13,100 EKG tracing personally reviewed by me shows atrial fibrillation rate controlled with PVC Chest x-ray film personally reviewed by me shows some chronic changes Assessment: -Acute COPD exacerbation and an ex-smoker, with bronchitis., Improving -Bilateral leg muscle cramps, improved -Coronary artery disease with stent to circumflex in January 2019 -Chronic congestive heart failure from systolic dysfunction EF 40-45% -Severe mitral regurgitation nonrheumatic --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 -Essential hypertension -Chronic kidney disease stage III 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 -Essential hypertension -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 Plan: Disposition home BMP in 3 days Patient Condition at Discharge: Stable Plan - Discharge Summary Discharge Rx Participant: No New Discharge Prescriptions: New Cephalexin [Keflex] 250 mg PO Q12H #14 cap INSULIN ASPART (NovoLOG) [NovoLOG (formulary)] 0 unit SQ [facility] vial predniSONE 10 mg PO DAILY #30 tab Budesonide-Formot 160-4.5 Mcg [Symbicort 160-4.5 Mcg Inhaler] 2 puff INHALATION RT-BID #1 puff Continue amLODIPine [Norvasc] 10 mg PO DAILY Clopidogrel [Plavix] 75 mg PO DAILY Carvedilol [Coreg] 12.5 mg PO BID Atorvastatin [Lipitor] 40 mg PO DAILY Venlafaxine HCl ER [Effexor XR] 150 mg PO DAILY Cyanocobalamin [Vitamin B-12] 500 mcg PO HS Allopurinol [Zyloprim] 300 mg PO HS L.acidoph,Paracasei, B.lactis [Probiotic] 1 cap PO DAILY Calcitriol 0.5 mcg PO TUSA clonazePAM [KlonoPIN] 0.25 mg PO BID #6 tablet Apixaban [Eliquis] 2.5 mg PO BID #60 tab Isosorbide Mononitrate ER [Imdur] 30 mg PO DAILY #30 tab Nitroglycerin Sl Tabs [Nitrostat] 0.4 mg SUBLINGUAL Q5M PRN #25 tab PRN Reason: Angina Melatonin 5 mg PO HS hydrALAZINE HCL [Apresoline] 100 mg PO TID Hyoscyamine Sulfate [Levbid] 0.375 mg PO BID Repaglinide [Prandin] 1 mg PO AC-TID Insulin Glargine,Hum.rec.anlog [Lantus Solostar] 22 unit SQ HS Ubidecarenone [Co Q-10] 200 mg PO DAILY@1200 Torsemide [Demadex] 60 mg PO BID Pantoprazole [Protonix] 40 mg PO DAILY PRN PRN Reason: Heartburn Changed Ipratropium-Albuterol Nebulize [Duoneb 0.5 mg-3 mg/3 ml Soln] 3 ml INHALATION Q6H #120 neb Discharge Medication List Allopurinol [Zyloprim] 300 mg PO HS 01/08/19 [History] Atorvastatin [Lipitor] 40 mg PO DAILY 01/08/19 [History] Calcitriol 0.5 mcg PO TUSA 01/08/19 [History] Carvedilol [Coreg] 12.5 mg PO BID 01/08/19 [History] Clopidogrel [Plavix] 75 mg PO DAILY 01/08/19 [History] Cyanocobalamin [Vitamin B-12] 500 mcg PO HS 01/08/19 [History] L.acidoph,Paracasei, B.lactis [Probiotic] 1 cap PO DAILY 01/08/19 [History] Venlafaxine HCl ER [Effexor XR] 150 mg PO DAILY 01/08/19 [History] amLODIPine [Norvasc] 10 mg PO DAILY 01/08/19 [History] clonazePAM [KlonoPIN] 0.25 mg PO BID #6 tablet 01/21/19 [Rx] Apixaban [Eliquis] 2.5 mg PO BID #60 tab 01/22/19 [Rx] Isosorbide Mononitrate ER [Imdur] 30 mg PO DAILY #30 tab 01/22/19 [Rx] Nitroglycerin Sl Tabs [Nitrostat] 0.4 mg SUBLINGUAL Q5M PRN #25 tab 01/22/19 [Rx] Hyoscyamine Sulfate [Levbid] 0.375 mg PO BID 05/02/19 [History] Insulin Glargine,Hum.rec.anlog [Lantus Solostar] 22 unit SQ HS 05/02/19 [History] Melatonin 5 mg PO HS 05/02/19 [History] Pantoprazole [Protonix] 40 mg PO DAILY PRN 05/02/19 [History] Repaglinide [Prandin] 1 mg PO AC-TID 05/02/19 [History] Torsemide [Demadex] 60 mg PO BID 05/02/19 [History] Ubidecarenone [Co Q-10] 200 mg PO DAILY@1200 05/02/19 [History] hydrALAZINE HCL [Apresoline] 100 mg PO TID 05/02/19 [History] Budesonide-Formot 160-4.5 Mcg [Symbicort 160-4.5 Mcg Inhaler] 2 puff INHALATION RT-BID #1 puff 05/04/19 [Rx] Cephalexin [Keflex] 250 mg PO Q12H #14 cap 05/04/19 [Rx] INSULIN ASPART (NovoLOG) [NovoLOG (formulary)] 0 unit SQ [facility] vial 05/04/19 [Rx] Ipratropium-Albuterol Nebulize [Duoneb 0.5 mg-3 mg/3 ml Soln] 3 ml INHALATION Q6H #120 neb 05/04/19 [Rx] predniSONE 10 mg PO DAILY #30 tab 05/04/19 [Rx] Follow up Appointment(s)/Referral(s): Ronnie Capps MD [STAFF PHYSICIAN] - 05/10/19 4:30 pm Minda Rosas DO [Primary Care Provider] - 1-2 days Ghassan Kimble DO [Doctor of Osteopathic Medicine] - 1 Week (Call office Tues to make follow-up appointment) Ambulatory/Diagnostic Orders: Basic Metabolic Panel [LAB.AMB] Time Frame: 3 Days, Location: None Selected Patient Instructions/Handouts: Heart Failure (DC), COPD (Chronic Obstructive Pulmonary Disease) (DC) Discharge Disposition: HOME SELF-CARE
== END 2019-05-04 12:19 | disposition home health service (06) | DRG 191 ==
LOC: EC 10:33 → 3SCARD 13:10
PROVIDERS: ADMIT Hospitalist; ATTEND Hospitalist
DX: J44.0 Chronic obstructive pulmonary disease with (acute) lower respiratory infection (principal); I13.0 Hypertensive heart and chronic kidney disease with heart failure and stage 1 through stage 4 chronic kidney disease, or unspecified chronic kidney disease; I50.22 Chronic systolic (congestive) heart failure; J44.1 Chronic obstructive pulmonary disease with (acute) exacerbation; E11.21 Type 2 diabetes mellitus with diabetic nephropathy; E11.22 Type 2 diabetes mellitus with diabetic chronic kidney disease; E78.5 Hyperlipidemia, unspecified; F41.9 Anxiety disorder, unspecified; H91.90 Unspecified hearing loss, unspecified ear; I25.10 Atherosclerotic heart disease of native coronary artery without angina pectoris; I25.2 Old myocardial infarction; I34.0 Nonrheumatic mitral (valve) insufficiency; I48.2 Chronic atrial fibrillation; J20.9 Acute bronchitis, unspecified; K21.9 Gastro-esophageal reflux disease without esophagitis; K57.30 Diverticulosis of large intestine without perforation or abscess without bleeding; K64.8 Other hemorrhoids; M10.9 Gout, unspecified; M19.90 Unspecified osteoarthritis, unspecified site; N18.3 Chronic kidney disease, stage 3 (moderate); R09.02 Hypoxemia; Z79.01 Long term (current) use of anticoagulants; Z79.02 Long term (current) use of antithrombotics/antiplatelets; Z79.4 Long term (current) use of insulin; Z79.899 Other long term (current) drug therapy; Z82.49 Family history of ischemic heart disease and other diseases of the circulatory system; Z83.3 Family history of diabetes mellitus; Z86.73 Personal history of transient ischemic attack (TIA), and cerebral infarction without residual deficits; Z87.891 Personal history of nicotine dependence; Z95.2 Presence of prosthetic heart valve; Z95.5 Presence of coronary angioplasty implant and graft; Z88.2 Allergy status to sulfonamides
CPT/HCPCS: 36415; 71046; 80048; 80053; 83735; 83880; 84484; 85025; 85610; 85730; 90732; 93005; 94640; 96374; 96375; 99285